=== PATIENT | female | born 1950 | race American Indian/Alaskan Native ===

== ENCOUNTER 2016-09-13 12:44 | Outpatient (CLI) | payer MEDICARE | END 2016-09-13 12:45 | disposition home or self-care (01) | LOC: VAS 12:44 | PROVIDERS: ATTEND Podiatrist Foot & Ankle Surgery | DX: M79.662 Pain in left lower leg (principal) ==

== ENCOUNTER 2017-01-24 10:24 | Inpatient (IN) | payer MEDICARE ==
[~2017-01-24 10:24] MED LIST: NOVOLOG SUB-Q SCH
[2017-01-24] MEDS ORDERED: DUONEB *Not for PRN Use IH ONE (10:40)
--- NOTE | 2017-01-24 11:03 | Emergency Department Report ---
Entered by DEREK CASAREZ, acting as scribe for SHIRIN NAVARRETE [employer]. - HPI History of Present Illness: Pt presents to ED today for evaluation of SOB with associated wheezing and generalized chest pain. She additionally notes a fall yesterday, at which time she fell backward in the kitchen against the cabinet, with subsequent constant, 10/10 right foot pain and right knee pain that is increased from baseline. She denies LOC. Patient reports that she has been able to "scoot along" since the fall, but reports that her right foot and right knee pain is worse when she goes to rise to ambulate. She denies fever, but states that her right foot has been "hot". Patient is prescribed an inhaler for intermittent SOB, but denies hx of COPD or asthma. - ROS Review of Systems: Positive for SOB, wheezing, chest pain, right foot pain, and right knee pain Negative for fever - Exam Vital Signs: Vital Signs 01/24/17 10:39 Temperature 98.1 F Pulse Rate 72 Respiratory 20 Rate Blood Pressure 194/81 O2 Sat by Pulse 100 Oximetry Physical Exam: morbidly obese female scattered insp wheezing MSE screening note: Focused history and physical exam performed. Due to findings the following was ordered: Orders: Nebs and labs, xr <SHIRIN NAVARRETE - Last Filed: 01/24/17 11:02> - Exam Vital Signs: Vital Signs 01/24/17 01/24/17 01/24/17 10:39 12:31 12:40 Temperature 98.1 F Pulse Rate 72 71 78 Respiratory 20 17 16 Rate Blood Pressure 194/81 195/88 O2 Sat by Pulse 100 98 97 Oximetry 01/24/17 01/24/17 01/24/17 12:50 13:00 13:10 Temperature Pulse Rate 73 74 74 Respiratory 19 23 13 Rate Blood Pressure 197/85 186/69 186/69 O2 Sat by Pulse 98 96 99 Oximetry 01/24/17 01/24/17 13:29 13:35 Temperature Pulse Rate 72 Respiratory 24 Rate Blood Pressure 184/71 O2 Sat by Pulse 97 Oximetry MSE screening note: Focused history and physical exam performed. Due to findings the following was ordered: <SHANDA SKINNER - Last Filed: 01/24/17 16:11> Stated Complaint: CHEST PAIN/RT LEG PAIN Time Seen by Provider: 01/24/17 10:37 ED Medical Decision Making - Lab Data Result diagrams: 01/24/17 11:42 01/24/17 13:30 <SHANDA SKINNER - Last Filed: 01/24/17 16:11> ED Disposition for MSE <SHIRIN NAVARRETE - Last Filed: 01/24/17 11:02> <SHANDA SKINNER - Last Filed: 01/24/17 16:11> Clinical Impression: Acute renal failure, COPD exacerbation, Chest pain, Hypertensive urgency Disposition: DC-09 OP ADMIT IP TO THIS HOSP Condition: Stable This documentation as recorded by the HERMELINDO chauhan KELLY,accurately reflects the service I personally performed and the decisions made by ROSALBA lauren TRACY M, NP.
--- NOTE | 2017-01-24 11:55 | XRay Report ---
RIGHT FOOT, 3 VIEWS History: Right foot pain after fall. Findings: There is severe diffuse soft tissue swelling or soft tissue edema. A moderate hallux valgus deformity is identified. No displaced fracture, erosive joint pathology or bony destruction is identified. Impression: Soft tissue swelling or edema. Chronic findings as described. No acute injury is appreciated on x-ray.
--- NOTE | 2017-01-24 11:55 | XRay Report ---
CHEST 2 VIEWS INDICATION: Dyspnea. COMPARISON: None similar. FINDINGS: PA and lateral chest radiographs demonstrate normal cardiomediastinal silhouette. Clear lungs. Mild aortic knob calcifications. Demineralized bones with mild thoracic spondylosis. CONCLUSION: No acute disease in the chest. Thank you for the opportunity to participate in this patient's care.
--- NOTE | 2017-01-24 11:57 | XRay Report ---
RIGHT KNEE RADIOGRAPHS INDICATION: Pain, status post fall. COMPARISON: None similar. FINDINGS: AP, oblique and lateral right knee radiographs suggest a moderate to large suprapatellar effusion. Demineralized bones with intact articulation. Degenerative spurring noted, most medially. Patellofemoral and lateral compartment degenerative narrowing also not excluded. Moderate atherosclerotic vascular calcifications. CONCLUSION: Right knee degenerative changes and suprapatellar effusion without acute bony abnormality, as described. Thank you for the opportunity to participate in this patient's care.
[2017-01-24 12:00] LABS: Basophils % (Auto) 0.5 % (0.0-1.8); Eosinophils % (Auto) 2.1 % (0.0-4.3); Hematocrit 28.3 % (30.3-42.9); Hemoglobin 8.9 gm/dl (10.1-14.3); Mean Corpuscular HGB Conc 32 % (30-34); Mean Corpuscular Volume 75 fl (79-97); Platelet Count 218 K/mm3 (140-440); Red Blood Count 3.76 M/mm3 (3.65-5.03); Red Cell Distribution Width 17.5 % (13.2-15.2); White Blood Count 9.6 K/mm3 (4.5-11.0)
[2017-01-24 12:01] LABS: Mean Corpuscular Hemoglobin 24 pg (28-32)
--- NOTE | 2017-01-24 12:03 | XRay Report ---
RIGHT TIBIA AND FIBULA RADIOGRAPHS INDICATION: Pain. COMPARISON: None similar. FINDINGS: AP and lateral views demonstrate intact right tibia and fibula as also adjacent articulations. Knee degenerative changes. Dorsal midfoot spurring. Vascular/soft tissue calcifications. Demineralized bones. Diffuse lower leg edema versus related to patient's body habitus. CONCLUSION: No acute right tibia or fibula radiographic abnormality with findings, as above. Thank you for the opportunity to participate in this patient's care.
[2017-01-24 12:08] LABS: INR 0.95 (0.87-1.13)
[2017-01-24 12:09] LABS: Partial Thromboplastin Time 29.9 Sec. (24.2-36.6)
[2017-01-24] MEDS ORDERED: ATROVENT IH ONE (12:14)
[2017-01-24 12:15] LABS: Albumin 3.5 g/dL (3.9-5); Albumin/Globulin Ratio 0.7 %; BUN/Creatinine Ratio 17.5; Bilirubin,Total 0.3 mg/dL (0.1-1.2); Calcium 8.5 mg/dL (8.4-10.2); Chloride 104.8 mmol/L (98-107); Potassium 4.1 mmol/L (3.6-5.0); Total Protein 8.3 g/dL (6.3-8.2)
[2017-01-24] MEDS ORDERED: PROVENTIL IH ONE (12:15)
[2017-01-24] MEDS ORDERED: MAGNESIUM SULFATE 2GM/50ML 2 GM/50 ML BAG IV ONE (12:17)
--- NOTE | 2017-01-24 12:18 | Emergency Department Report ---
ED General Adult HPI - General Chief complaint: Chest Pain Stated complaint: CHEST PAIN/RT LEG PAIN Time Seen by Provider: 01/24/17 10:37 Source: patient, family, RN notes reviewed Mode of arrival: Ambulatory Limitations: No Limitations - History of Present Illness Initial comments: This is a 66-year-old female. She is previously unknown to me. Her primary care doctor is Dr. Ruvalcaba. She reports a past medical history of diabetes, arthritis, hypertension, obesity, COPD. He is not currently oxygen dependent. The patient presents to the ER to make complaint of right lower extremity pain and swelling. She reports that it started yesterday. She reports a mechanical fall, where she landed on her buttocks and on her back. She did not hit her head. She had no symptoms prior to the fall. The lower extremity pain is sharp, and increases with palpation and range of motion. It decreases with rest. She denies headache, neck pain, admits to chronic shortness of breath, chronic cough, which is slightly worsened than her baseline. She also admitted to social chest pain which did not radiate to the back, arms and neck. No vomiting or diaphoresis. No hematemesis or bright red blood per rectum. -: Sudden Location: chest, back, right, lower extremity Quality: aching Consistency: constant Improves with: rest Worsens with: movement Associated Symptoms: chest pain, cough, shortness of breath, weakness - Related Data Home Medications Medication Instructions Recorded Confirmed Last Taken Gabapentin [Neurontin] 300 mg PO BID 01/24/17 01/24/17 Unknown Glimepiride [Amaryl] 1 mg PO QAM 01/24/17 01/24/17 Unknown HYDROcodone/APAP 7.5-325 [Yoder 1 each PO Q6HR PRN 01/24/17 01/24/17 Unknown 7.5/325] Hydralazine HCl [Apresoline TAB] 50 mg PO BID 01/24/17 01/24/17 Unknown Oxybutynin [Ditropan] 5 mg PO BID 01/24/17 01/24/17 Unknown amLODIPine [Norvasc] 10 mg PO DAILY 01/24/17 01/24/17 Unknown traMADol [Ultram] 50 mg PO Q4HR PRN 01/24/17 01/24/17 Unknown Allergies Allergy/AdvReac Type Severity Reaction Status Date / Time Penicillins Allergy Rash Unverified 09/13/16 12:46 ED Review of Systems ROS: Stated complaint: CHEST PAIN/RT LEG PAIN Other details as noted in HPI Constitutional: malaise. denies: fever Eyes: denies: vision change ENT: denies: epistaxis Respiratory: shortness of breath Cardiovascular: edema Gastrointestinal: denies: abdominal pain Musculoskeletal: back pain Skin: denies: lesions Neurological: weakness Psychiatric: anxiety ED Past Medical Hx - Past Medical History Previous Medical History?: Yes Hx Hypertension: Yes Hx Diabetes: Yes Hx Arthritis: Yes - Surgical History Past Surgical History?: Yes Additional Surgical History: Left knee surgery, Abd hernia repair - Social History Smoking Status: Former Smoker Substance Use Type: Prescribed - Medications Home Medications: Home Medications Medication Instructions Recorded Confirmed Last Taken Type Gabapentin [Neurontin] 300 mg PO BID 01/24/17 01/24/17 Unknown History Glimepiride [Amaryl] 1 mg PO QAM 01/24/17 01/24/17 Unknown History HYDROcodone/APAP 7.5-325 [Yoder 1 each PO Q6HR PRN 01/24/17 01/24/17 Unknown History 7.5/325] Hydralazine HCl [Apresoline TAB] 50 mg PO BID 01/24/17 01/24/17 Unknown History Oxybutynin [Ditropan] 5 mg PO BID 01/24/17 01/24/17 Unknown History amLODIPine [Norvasc] 10 mg PO DAILY 01/24/17 01/24/17 Unknown History traMADol [Ultram] 50 mg PO Q4HR PRN 01/24/17 01/24/17 Unknown History ED Physical Exam - General Limitations: Physical Limitation General appearance: obese - Head Head exam: Present: atraumatic, normocephalic - Eye Eye exam: Present: normal appearance, EOMI. Absent: nystagmus - ENT ENT exam: Present: normal exam, normal orophraynx, mucous membranes moist, normal external ear exam - Neck Neck exam: Present: normal inspection, full ROM. Absent: tenderness, meningismus - Respiratory Respiratory exam: Present: respiratory distress, wheezes, rhonchi - Cardiovascular Cardiovascular Exam: Present: regular rate, normal rhythm, normal heart sounds. Absent: systolic murmur, diastolic murmur, rubs, gallop - GI/Abdominal GI/Abdominal exam: Present: soft, normal bowel sounds. Absent: distended, tenderness, guarding, rebound, rigid, pulsatile mass - Extremities Exam Extremities exam: Present: normal inspection, normal capillary refill, pedal edema, calf tenderness - Back Exam Back exam: Present: normal inspection, full ROM, paraspinal tenderness, vertebral tenderness, other (there is lumbar tenderness. ). Absent: tenderness , CVA tenderness (R) - Neurological Exam Neurological exam: Present: alert, oriented X3, other (Extraocular movements intact. Tongue midline. No facial droop. Facial sensation intact to light touch in the V1, V2, V3 distribution bilaterally. 5 and 5 strength in 4 extremities.. Sensation is intact to light touch in 4 extremities.). Absent: motor sensory deficit - Psychiatric Psychiatric exam: Present: normal affect, normal mood - Skin Skin exam: Present: warm, dry, intact, normal color. Absent: rash ED Course Vital Signs 01/24/17 01/24/17 01/24/17 10:39 12:31 12:40 Temperature 98.1 F Pulse Rate 72 71 78 Respiratory 20 17 16 Rate Blood Pressure 194/81 195/88 O2 Sat by Pulse 100 98 97 Oximetry 01/24/17 01/24/17 01/24/17 12:50 13:00 13:10 Temperature Pulse Rate 73 74 74 Respiratory 19 23 13 Rate Blood Pressure 197/85 186/69 186/69 O2 Sat by Pulse 98 96 99 Oximetry 01/24/17 01/24/17 13:29 13:35 Temperature Pulse Rate 72 Respiratory 24 Rate Blood Pressure 184/71 O2 Sat by Pulse 97 Oximetry - Reevaluation(s) Reevaluation #1: 01/24/17 15:[address] scan of the C-spine is negative for traumatic injury. ED Medical Decision Making - Lab Data Result diagrams: 01/24/17 11:42 01/24/17 13:30 Vital Signs 01/24/17 10:39 Temperature 98.1 F Pulse Rate 72 Respiratory 20 Rate Blood Pressure 194/81 O2 Sat by Pulse 100 Oximetry Lab Results 01/24/17 01/24/17 01/24/17 Range/Units 11:42 11:42 11:42 WBC 9.6 (4.5-11.0) K/mm3 RBC 3.76 (3.65-5.03) M/mm3 Hgb 8.9 L (10.1-14.3) gm/dl Hct 28.3 L (30.3-42.9) % MCV 75 L (79-97) fl MCH 24 L (28-32) pg MCHC 32 (30-34) % RDW 17.5 H (13.2-15.2) % Plt Count 218 (140-440) K/mm3 Lymph % (Auto) 29.8 (13.4-35.0) % [place] % (Auto) 9.3 H (0.0-7.3) % Eos % (Auto) 2.1 (0.0-4.3) % Baso % (Auto) 0.5 (0.0-1.8) % Lymph # 2.9 (1.2-5.4) K/mm3 [place] # 0.9 H (0.0-0.8) K/mm3 Eos # 0.2 (0.0-0.4) K/mm3 Baso # 0.0 (0.0-0.1) K/mm3 Seg Neutrophils % 58.3 (40.0-70.0) % Seg Neutrophils # 5.6 (1.8-7.7) K/mm3 PT 12.6 (12.2-14.9) Sec. INR 0.95 (0.87-1.13) APTT 29.9 (24.2-36.6) Sec. D-Dimer (0-234) ng/mlDDU Sodium 141 (137-145) mmol/L Potassium 4.1 (3.6-5.0) mmol/L Chloride 104.8 (98-107) mmol/L Carbon Dioxide 22 (22-30) mmol/L Anion Gap 18 mmol/L BUN 42 H (7-17) mg/dL Creatinine 2.4 H (0.7-1.2) mg/dL Estimated GFR 25 ml/min BUN/Creatinine Ratio 17.50 % Glucose 153 H (65-100) mg/dL Calcium 8.5 (8.4-10.2) mg/dL Total Bilirubin 0.30 (0.1-1.2) mg/dL AST 26 (5-40) units/L ALT 11 (7-56) units/L Alkaline Phosphatase 79 (35-129) units/L Troponin T 0.023 (0.00-0.029) ng/mL NT-Pro-B Natriuret Pep (0-900) pg/mL Total Protein 8.3 H (6.3-8.2) g/dL Albumin 3.5 L (3.9-5) g/dL Albumin/Globulin Ratio 0.7 % 01/24/17 01/24/17 Range/Units 11:42 11:42 WBC (4.5-11.0) K/mm3 RBC (3.65-5.03) M/mm3 Hgb (10.1-14.3) gm/dl Hct (30.3-42.9) % MCV (79-97) fl MCH (28-32) pg MCHC (30-34) % RDW (13.2-15.2) % Plt Count (140-440) K/mm3 Lymph % (Auto) (13.4-35.0) % [place] % (Auto) (0.0-7.3) % Eos % (Auto) (0.0-4.3) % Baso % (Auto) (0.0-1.8) % Lymph # (1.2-5.4) K/mm3 [place] # (0.0-0.8) K/mm3 Eos # (0.0-0.4) K/mm3 Baso # (0.0-0.1) K/mm3 Seg Neutrophils % (40.0-70.0) % Seg Neutrophils # (1.8-7.7) K/mm3 PT (12.2-14.9) Sec. INR (0.87-1.13) APTT (24.2-36.6) Sec. D-Dimer < 135 (0-234) ng/mlDDU Sodium (137-145) mmol/L Potassium (3.6-5.0) mmol/L Chloride (98-107) mmol/L Carbon Dioxide (22-30) mmol/L Anion Gap mmol/L BUN (7-17) mg/dL Creatinine (0.7-1.2) mg/dL Estimated GFR ml/min BUN/Creatinine Ratio % Glucose (65-100) mg/dL Calcium (8.4-10.2) mg/dL Total Bilirubin (0.1-1.2) mg/dL AST (5-40) units/L ALT (7-56) units/L Alkaline Phosphatase (35-129) units/L Troponin T (0.00-0.029) ng/mL NT-Pro-B Natriuret Pep 692.5 (0-900) pg/mL Total Protein (6.3-8.2) g/dL Albumin (3.9-5) g/dL Albumin/Globulin Ratio % - EKG Data -: EKG Interpreted by Me EKG shows normal: sinus rhythm Rate: normal - EKG Data When compared to previous EKG there are: previous EKG unavailable 01/24/17 13:29 normal sinus, 78 bpm, normal axis, not morphologically consistent with STEMI, there is no prior for comparison, nonspecific abnormalities - Radiology Data Radiology results: report reviewed, image reviewed X-ray of the pelvis is negative. X-ray the foot, tib-fib demonstrate no fracture or dislocation. DJD is noted. X-ray the chest is negative - Medical Decision Making Differential diagnosis: COPD exacerbation, strain, sprain, fracture, dislocation , acute coronary syndrome, incidental renal insufficiency, pulmonary embolus Assessment and plan: 66-year-old female with a primary complaint of back pain and lower extremity pain status post mechanical fall. Has a GCS of 15, with an anisocoria of 0. Clinically sober at this time. While in the ER, began to complain of chest pain. Found to be in renal insufficiency. Lower extremity DVT study negative. D-dimer negative. Low risk by well's criteria. Found to be in acute renal failure. Still wheezing after albuterol, Atrovent, steroids and magnesium. Case presents to the Hospital physician, Dr. Ribeiro, who accepts the patient to his service for chest pain and risk stratification, COPD exacerbation, and acute renal failure. Noncontrast CT scan of the lumbar spine ordered given trauma. Patient to remain in the ER pending results of the CT scan. Critical care attestation.: If time is entered above; I have spent that time in minutes in the direct care of this critically ill patient, excluding procedure time. ED Disposition Clinical Impression: Acute renal failure, COPD exacerbation, Chest pain, Hypertensive urgency Disposition: OP ADMIT IP TO THIS HOSP Is pt being admited?: Yes Does the pt Need Aspirin: Yes Condition: Stable
--- NOTE | 2017-01-24 12:49 | XRay Report ---
AP PELVIS: History: Pain after fall. AP view of the pelvis shows normal pelvic contour and soft tissues. The hips are symmetric and within normal limits as are the sacroiliac joints. IMPRESSION: Normal pelvis.
[2017-01-24] MEDS ORDERED: APRESOLINE IV ONE (12:56)
[2017-01-24] MEDS ORDERED: BABY ASPIRIN PO ONE (12:58)
--- NOTE | 2017-01-24 13:05 | Admit Criteria Form ---
Admission Criteria Documentation: UROLOGIC DISEASE G Clinical Indications for Admission to Inpatient Care (Place ' X' for any and all applicable criteria): Hospital admission is needed for appropriate care of the patient because of 1 or more of the following: [ ]I. New-onset Reduced urine output, or hydronephrosis remaining after emergency or observation level care (as appropriate ) [X ]II. Renal disease needing inpatient care indicated by 1 or more of the following(2)(3)(4): [ X]a) Acute renal failure [ ]b) Significant uremic complications [ ]c) Acute kidney injury (that does not qualify as Acute renal failure ) requiring inpatient care indicated by ALL of the following(5)(6)(7)(8) (9): [ ]i) Worsening clinical status (eg, rising creatinine) despite outpatient and observation care treatment (eg, hydration) [ ]ii) Acute kidney injury indicated by 1 or more of the following: [ ]1) 2-fold or more rise in serum creatinine from baseline [ ]2) Reduction of more than 50% in estimated glomerular filtration rate from baseline [ ]3) Urine output less than 0.5 mL/kg/hr for 12 hours despite adequate volume status [ ]d) Systemic cause (eg, Goodpasture syndrome ) needing inpatient care [ ]e) Rapidly progressive renal disease needing inpatient care (eg, plasmapheresis, immunosuppression ) Anasarca needing inpatient care [ ]f) Hemoptysis [ ]g) Hemolysis, thrombosis, or infraction [ ]h) Anasarca needing inpatient care [ ]III. New-onset or uncontrolled nephrogenic diabetes insipidus [ ]IV. Urologic infection requiring inpatient care as indicated by 1 or more of the following(10)(11)(12): [ ]a) Hemodynamic instability [ ]b) Dehydration that is severe or persistent [ ]c) Failure of outpatient treatment [ ]d) Aline's gangrene [ ]e) Urinary obstruction [ ]f) Immunocompromised state (eg, chronic steroid use ) [ ]g) Known renal or urologic abnormalities(eg, indwelling catheter, structural abnormalities ) [ ]h) Recent urologic manipulation or procedure Urinary obstruction [ ]i) Abscess requiring drainage Immunocompromised state [ ]V. Acute urinary retention requiring inpatient management as indicated by ANY ONE of the following(1)(13): [ ]a) Retention cannot be alleviated via emergency or observation level care (eg, urinary catheter placement) [ ]b) Hemodynamic instability [ ]c) Acute neurologic etiology (eg, cauda equina) [ ]d) Dehydration or other complications not manageable with emergency or observation level care [ ]e) Acute kidney injury (that does not qualify as Acute renal failure ) requiring inpatient care indicated by ALL of the following(5)(6)(7)(8) (9): [ ]i) Acute kidney injury indicated by ANY ONE of the following: [ ]1) 2-fold or more rise in serum creatinine from baseline [ ]2) Reduction of more than 50% in estimated glomerular filtration rate from baseline [ ]ii) Worsening clinical status (eg, rising creatinine) despite outpatient and observation care treatment (eg, hydration) [ ]. Gross hematuria requiring inpatient management as indicated by ANY ONE of the following(1)(2): [ ]a) Evidence of renal obstruction [ ]b) Reduced urine output [ ]c) Clot retention after urinary catheterization and irrigation [ ]d) Severe Anemia [ ]e) Systemic cause needing inpatient treatment (eg, Goodpasture syndrome) [ ]VII. Priapism not responsive to emergency or observation care treatment [ ]VII. Scrotal, testicular, or epididymal disorder requiring inpatient care indicated by 1 or more of the following(1)(14)(15)(16): [ ]a) Scrotal edema or infection not manageable with emergency or observation level care [ ]b) Orchitis not manageable with emergency or observation level care [ ]c) Epididymitis not manageable with emergency or observation level of care [ ]d) Other scrotal, testicular, or epididymal disorder (eg, infection, inflammation) not manageable with emergency or observation level care [ ]IX. Complications of transplanted kidney indicated by 1 or more of the following [ ]a) Acute graft rejection requiring inpatient management (eg, intravenous immunosuppression) [ ]b) Acute kidney injury indicated by ALL of the following i) Acute kidney injury indicated by 1 or more of the following 1) 2-fold or more rise in serum creatinine from baseline 2) Reduction of more than 50% in estimated glomerular filtration rate from baseline 3) Urine output less than 0.5 mL/kg/hr for 12 hours despite adequate volume status ii) Kidney injury too severe or not responsive to outpatient and observation care treatment (eg, hydration) [ ]c) Infection requiring inpatient management (eg, Hemodynamic instability, need for intravenous antimicrobial treatment) [ ]d) Other complication of transplanted kidney requiring patient management (eg, severe diarrhea leading to malabsorption) [ ]X. Trauma to renal, genital, or urologic system requiring inpatient medical care [ ]XI. Urologic Disease condition, symptom, or finding for which emergency and observation care have failed or are not considered appropriate. The original [employer] content created by [employer] has been revised. The portions of the content which have been revised are identified through the use of italic text or in bold, and [facility] has neither reviewed nor approved the modified material. All other unmodified content is copyright [facility]. Please see references footnoted in the original [facility] edition 2016 Admission Criteria Met: Yes
[2017-01-24] MEDS ORDERED: SODIUM CHLORIDE FLUSH SYRINGE 10 ML IV PRN (13:32)
[2017-01-24] MEDS ORDERED: TYLENOL PO PRN (13:32)
[2017-01-24] MEDS ORDERED: ULTRAM PO PRN (13:51)
--- NOTE | 2017-01-24 13:53 | History and Physical Report ---
History of Present Illness Chief complaint: My chest hurts, and my leg hurts History of present illness: 66 YO Female with HTN, DM, OA, MO, COPD presents to ED for evaluation. Pt states that she has experienced pain in her chest , leg swelling, and leg pain for the past 1 day with worsening symptoms over the past 4 hours. Pt chest pain is 6/10, substernal, nonradiating, not exacerbated with exertion, or relieved with rest. Pain is associated with shortness of breath. Pt acknowledges productive cough with increased sputum, but denies fever, chills, palpitations, NVD, skin rash or recent ill contacts. - Past History Past Medical History: arthritis, COPD, diabetes, hypertension Past Surgical History: hernia repair, total knee replacement Social history: . denies: smoking, alcohol abuse, prescription drug abuse, IV drug use Family history: diabetes, hypertension Medications and Allergies Allergies Allergy/AdvReac Type Severity Reaction Status Date / Time Penicillins Allergy Rash Unverified 09/13/16 12:46 Home Medications Medication Instructions Recorded Confirmed Last Taken Type Gabapentin [Neurontin] 300 mg PO BID 01/24/17 01/24/17 Unknown History Glimepiride [Amaryl] 1 mg PO QAM 01/24/17 01/24/17 Unknown History HYDROcodone/APAP 7.5-325 [[place] 1 each PO Q6HR PRN 01/24/17 01/24/17 Unknown History 7.5/325] Hydralazine HCl [Apresoline TAB] 50 mg PO BID 01/24/17 01/24/17 Unknown History Oxybutynin [Ditropan] 5 mg PO BID 01/24/17 01/24/17 Unknown History amLODIPine [Norvasc] 10 mg PO DAILY 01/24/17 01/24/17 Unknown History traMADol [Ultram] 50 mg PO Q4HR PRN 01/24/17 01/24/17 Unknown History Active Meds: Active Medications Acetaminophen (Tylenol) 650 mg PO Q4H PRN PRN Reason: Pain MILD(1-3)/Fever >100.5/FOWLER Sodium Chloride (Sodium Chloride Flush Syringe 10 Ml) 10 ml IV PRN PRN PRN Reason: LINE FLUSH Tramadol HCl (Ultram) 25 mg PO Q8H PRN PRN Reason: Pain, Moderate (4-6) Review of Systems All systems: negative Constitutional: no weight loss, no fever Ears, nose, mouth and throat: no ear pain Breasts: no swelling Cardiovascular: chest pain, shortness of breath Respiratory: cough with sputum, excessive sputum Gastrointestinal: no abdominal pain Genitourinary Female: no difficulty voiding Rectal: no pain Musculoskeletal: no neck stiffness Integumentary: no rash Neurological: no paralysis Psychiatric: no anxiety Endocrine: no cold intolerance, no nocturia Hematologic/Lymphatic: no easy bruising Allergic/Immunologic: no urticaria Exam - Constitutional Vitals: Temp Pulse Resp BP Pulse Ox 98.1 F 72 24 184/71 97 01/24/17 10:39 01/24/17 13:35 01/24/17 13:29 01/24/17 13:35 01/24/17 13:29 General appearance: Present: mild distress, obese - EENT Eyes: Present: PERRL ENT: hearing intact, clear oral mucosa - Neck Neck: Present: supple, normal ROM - Respiratory Respiratory effort: normal Respiratory: bilateral: diminished - Cardiovascular Heart Sounds: Present: S1 & S2. Absent: rub, click - Extremities Extremities: pulses symmetrical, No edema Peripheral Pulses: within normal limits - Abdominal General gastrointestinal: Present: soft, non-tender, non-distended, normal bowel sounds Female genitourinary: Present: normal - Integumentary Integumentary: Present: clear, warm, dry - Musculoskeletal Musculoskeletal: gait normal, strength equal bilaterally - Psychiatric Psychiatric: appropriate mood/affect, intact judgment & insight - Neurologic Neurologic: CNII-XII intact, moves all extremities Results - Labs CBC & Chem 7: 01/24/17 11:42 01/24/17 13:30 Labs: Abnormal lab results 01/24/17 01/24/17 Range/Units 11:42 11:42 Hgb 8.9 L (10.1-14.3) gm/dl Hct 28.3 L (30.3-42.9) % MCV 75 L (79-97) fl MCH 24 L (28-32) pg RDW 17.5 H (13.2-15.2) % [place] % (Auto) 9.3 H (0.0-7.3) % [place] # 0.9 H (0.0-0.8) K/mm3 BUN 42 H (7-17) mg/dL Creatinine 2.4 H (0.7-1.2) mg/dL Glucose 153 H (65-100) mg/dL Total Protein 8.3 H (6.3-8.2) g/dL Albumin 3.5 L (3.9-5) g/dL Assessment and Plan - Patient Problems (1) ACS (acute coronary syndrome) Current Visit: Yes Status: Acute Plan to address problem: Admit to telemetry: serial cardiac enzymes, ekg, telemetry, echo, cardiology consulted, (2) Diabetes Current Visit: Yes Status: Acute Qualifiers: Diabetes mellitus type: D Diabetes mellitus complication status: D Diabetes mellitus complication detail: D Diabetic retinopathy severity: D Proliferative retinopathy type: P Diabetes mellitus macular edema: D Diabetes mellitus correction insulin use: D Laterality: L Chronic kidney disease stage: C Plan to address problem: ADA diet, insulin, accu check (3) Metabolic syndrome Current Visit: Yes Status: Acute Plan to address problem: Pt counseled, balanced diet, increased physical activity (4) Acute renal failure Current Visit: Yes Status: Acute Qualifiers: Acute renal failure type: A Plan to address problem: IVF replacement, monitor uop q shift, (5) COPD exacerbation Current Visit: Yes Status: Acute Plan to address problem: supplemental oxygen, nebs, aspiration precautions, NIPPV as clinically indicated. (6) Hypertensive urgency Current Visit: Yes Status: Acute Plan to address problem: monitor B/P q shift, continue home medication. (7) DVT prophylaxis Current Visit: Yes Status: Acute
[2017-01-24 15:08] LABS: BUN/Creatinine Ratio 18.63; Calcium 8.4 mg/dL (8.4-10.2); Chloride 103.5 mmol/L (98-107); Potassium 4.1 mmol/L (3.6-5.0)
--- NOTE | 2017-01-24 15:12 | Cat Scan Report ---
CT LUMBAR SPINE WITHOUT CONTRAST History: Back pain after fall. Findings: Mild osteopenia is suspected. There is 8 mm anterolisthesis of L4 with respect to L5 which appears to be secondary to facet arthropathy. There is advanced disc space narrowing and vacuum phenomenon at this level as well. The remaining levels are within normal limits. There is no evidence for compression deformity, bone lesion or paraspinal abnormality. Impression: Grade 2 spondylolisthesis at L4-5 which appears degenerative in nature. Mild osteopenia. No acute injury is identified.
[2017-01-24 19:31] LABS: Hematocrit 27.6 % (30.3-42.9); Hemoglobin 8.7 gm/dl (10.1-14.3); Mean Corpuscular HGB Conc 31 % (30-34); Mean Corpuscular Volume 76 fl (79-97); Platelet Count 214 K/mm3 (140-440); Red Blood Count 3.65 M/mm3 (3.65-5.03); Red Cell Distribution Width 17.7 % (13.2-15.2); White Blood Count 9.1 K/mm3 (4.5-11.0)
[2017-01-24 19:33] LABS: Mean Corpuscular Hemoglobin 24 pg (28-32)
[2017-01-24] MEDS ORDERED: PROVENTIL IH PRN (20:56)
[2017-01-24] MEDS: NOVOLOG SUB-Q SCH (22:50)
[2017-01-25] MEDS: NOVOLOG SUB-Q SCH ×4 (07:30→22:05)
[2017-01-25] MEDS ORDERED: ULTRAM PO PRN (10:05)
[2017-01-25] MEDS: NORVASC PO SCH (10:28)
[2017-01-25] MEDS: NEURONTIN PO SCH ×2 (10:28→22:04)
[2017-01-25] MEDS: DITROPAN PO SCH ×2 (10:29→22:04)
[2017-01-25] MEDS: APRESOLINE PO SCH ×2 (10:29→18:37)
--- NOTE | 2017-01-25 11:07 | Consultation ---
History of Present Illness Consult date: 01/25/17 Consult reason: chest pain History of present illness: This is a 66yr old woman that reports a history of Spinal stenosis, Diabetes mellitus, Obesity and Hypertension. She denies prior cardiac history. She denies recent cardiac workup. She came to this hospital following a fall at home. Patient denies chest pain and shortness of breath just prior to her fall. Patient reports she was standing when her legs became weak then gave out on her causing her to fall backwards. Patient reports she landed on her buttock and back. She denies hitting her head. Patient denies loss of consciousness. After her fall, patient reports anxiousness, chest pain and shortness of breath. Her ECG shows a sinus rhythm, no acute ischemic changes. Past History Past Surgical History: total knee replacement Social history: . denies: smoking, alcohol abuse, prescription drug abuse, IV drug use Family history: diabetes, hypertension Medications and Allergies Allergies Allergy/AdvReac Type Severity Reaction Status Date / Time Penicillins Allergy Rash Unverified 09/13/16 12:46 Home Medications Medication Instructions Recorded Confirmed Last Taken Type Gabapentin [Neurontin] 300 mg PO BID 01/24/17 01/24/17 Unknown History Glimepiride [Amaryl] 1 mg PO QAM 01/24/17 01/24/17 Unknown History HYDROcodone/APAP 7.5-325 [[place] 1 each PO Q6HR PRN 01/24/17 01/24/17 Unknown History 7.5/325] Hydralazine HCl [Apresoline TAB] 50 mg PO BID 01/24/17 01/24/17 Unknown History Oxybutynin [Ditropan] 5 mg PO BID 01/24/17 01/24/17 Unknown History amLODIPine [Norvasc] 10 mg PO DAILY 01/24/17 01/24/17 Unknown History traMADol [Ultram] 50 mg PO Q4HR PRN 01/24/17 01/24/17 Unknown History Active Meds: Active Medications Acetaminophen (Tylenol) 650 mg PO Q4H PRN PRN Reason: Pain MILD(1-3)/Fever >100.5/FOWLER Albuterol (Proventil) 2.5 mg IH Q4HRT PRN PRN Reason: Shortness Of Breath Last Admin: 01/25/17 09:35 Dose: 2.5 mg Amlodipine Besylate (Norvasc) 10 mg PO DAILY REPLACED BY [facility] Last Admin: 01/25/17 10:28 Dose: 10 mg Gabapentin (Neurontin) 300 mg PO BID REPLACED BY [facility] Last Admin: 01/25/17 10:28 Dose: 300 mg Hydralazine HCl (Apresoline) 50 mg PO Q8H REPLACED BY [facility] Last Admin: 01/25/17 10:29 Dose: 50 mg Insulin Aspart (Novolog) 0 units SUB-Q ACHS [place] PRN Reason: Protocol Last Admin: 01/25/17 07:30 Dose: Not Given Oxybutynin Chloride (Ditropan) 5 mg PO BID REPLACED BY [facility] Last Admin: 01/25/17 10:29 Dose: 5 mg Pneumococcal Polyvalent Vaccine (Pneumovax 23) 0.5 ml IM .ONCE ONE Stop: 01/25/17 12:01 Sodium Chloride (Sodium Chloride Flush Syringe 10 Ml) 10 ml IV PRN PRN PRN Reason: LINE FLUSH Tramadol HCl (Ultram) 50 mg PO Q4HR PRN PRN Reason: Pain Physical Examination Vital Signs Temp Pulse Resp BP Pulse Ox 98.1 F 72 20 194/81 100 01/24/17 10:39 01/24/17 10:39 01/24/17 10:39 01/24/17 10:39 01/24/17 10:39 General appearance: no acute distress, obese HEENT: Positive: PERRL Cardiac: Positive: Reg Rate and Rhythm Results 01/24/17 17:28 01/24/17 13:30 Lipids 01/24/17 Range/Units 20:51 Triglycerides 77 (2-149) mg/dL Cholesterol 181 (50-199) mg/dL HDL Cholesterol 50 (40-59) mg/dL Cholesterol/HDL Ratio 3.62 % CBC 01/24/17 Range/Units 17:28 WBC 9.1 (4.5-11.0) K/mm3 RBC 3.65 (3.65-5.03) M/mm3 Hgb 8.7 L (10.1-14.3) gm/dl Hct 27.6 L (30.3-42.9) % Plt Count 214 (140-440) K/mm3 Lymph # Scientific Photographer [place] # Scientific Photographer [place] # Scientific Photographer [place] # Scientific Photographer Assessment and Plan s/p Fall spondylolisthesis on lumbar CT Chest pain Acute renal failure Anemia Morbid obesity Diabetes mellitus Hypertension Echocardiogram reports severe pulmonary hypertension, RVSP 62mmHg. Normal LV systolic function, EF 60-65%.
--- NOTE | 2017-01-25 11:55 | Consultation ---
History of Present Illness - Reason for Consult Consult date: 01/25/17 acute renal failure, chronic renal failure Requesting physician: BAYLEE COYLE - History of Present Illness This is a 66-year-old female. She is previously unknown to me. Her primary care doctor is Dr. Ruvalcaba. She reports a past medical history of diabetes, arthritis, hypertension, obesity, COPD. He is not currently oxygen dependent. The patient presents to the ER to make complaint of right lower extremity pain and swelling. She reports that it started yesterday. She reports a mechanical fall, where she landed on her buttocks and on her back. She did not hit her head. She had no symptoms prior to the fall. The lower extremity pain is sharp, and increases with palpation and range of motion. It decreases with rest. She denies headache, neck pain, admits to chronic shortness of breath, chronic cough, which is slightly worsened than her baseline. She also admitted to social chest pain which did not radiate to the back, arms and neck. No vomiting or diaphoresis. No hematemesis or bright red blood per rectum. found to have cr on 2.4 on admission Past History Past Medical History: arthritis, COPD, diabetes, hypertension Past Surgical History: total knee replacement Social history: . denies: smoking, alcohol abuse, prescription drug abuse, IV drug use Family history: diabetes, hypertension Medications and Allergies Allergies Allergy/AdvReac Type Severity Reaction Status Date / Time Penicillins Allergy Rash Unverified 09/13/16 12:46 Home Medications Medication Instructions Recorded Confirmed Last Taken Type Gabapentin [Neurontin] 300 mg PO BID 01/24/17 01/24/17 Unknown History Glimepiride [Amaryl] 1 mg PO QAM 01/24/17 01/24/17 Unknown History HYDROcodone/APAP 7.5-325 [[place] 1 each PO Q6HR PRN 01/24/17 01/24/17 Unknown History 7.5/325] Hydralazine HCl [Apresoline TAB] 50 mg PO BID 01/24/17 01/24/17 Unknown History Oxybutynin [Ditropan] 5 mg PO BID 01/24/17 01/24/17 Unknown History amLODIPine [Norvasc] 10 mg PO DAILY 01/24/17 01/24/17 Unknown History traMADol [Ultram] 50 mg PO Q4HR PRN 01/24/17 01/24/17 Unknown History Active Meds: Active Medications Acetaminophen (Tylenol) 650 mg PO Q4H PRN PRN Reason: Pain MILD(1-3)/Fever >100.5/FOWLER Albuterol (Proventil) 2.5 mg IH Q4HRT PRN PRN Reason: Shortness Of Breath Last Admin: 01/25/17 09:35 Dose: 2.5 mg Amlodipine Besylate (Norvasc) 10 mg PO DAILY [facility] Last Admin: 01/25/17 10:28 Dose: 10 mg Gabapentin (Neurontin) 300 mg PO BID [facility] Last Admin: 01/25/17 10:28 Dose: 300 mg Hydralazine HCl (Apresoline) 50 mg PO Q8H [facility] Last Admin: 01/25/17 10:29 Dose: 50 mg Insulin Aspart (Novolog) 0 units SUB-Q ACHS [facility] PRN Reason: Protocol Last Admin: 01/25/17 07:30 Dose: Not Given Oxybutynin Chloride (Ditropan) 5 mg PO BID [facility] Last Admin: 01/25/17 10:29 Dose: 5 mg Pneumococcal Polyvalent Vaccine (Pneumovax 23) 0.5 ml IM .ONCE ONE Stop: 01/25/17 12:01 Sodium Chloride (Sodium Chloride Flush Syringe 10 Ml) 10 ml IV PRN PRN PRN Reason: LINE FLUSH Tramadol HCl (Ultram) 50 mg PO Q4HR PRN PRN Reason: Pain Review of Systems Constitutional: fatigue, weakness, malaise Musculoskeletal: frequent falls Exam - Vital Signs Vital signs: Vital Signs Temp Pulse Resp BP Pulse Ox 98.1 F 72 20 194/81 100 01/24/17 10:39 01/24/17 10:39 01/24/17 10:39 01/24/17 10:39 01/24/17 10:39 - Physical Exam Narrative exam: - General Limitations: Physical Limitation General appearance: obese - Head Head exam: Present: atraumatic, normocephalic - Eye Eye exam: Present: normal appearance, EOMI. Absent: nystagmus - ENT ENT exam: Present: normal exam, normal orophraynx, mucous membranes moist, normal external ear exam - Neck Neck exam: Present: normal inspection, full ROM. Absent: tenderness, meningismus - Respiratory Respiratory exam: Present: respiratory distress, wheezes, rhonchi - Cardiovascular Cardiovascular Exam: Present: regular rate, normal rhythm, normal heart sounds. Absent: systolic murmur, diastolic murmur, rubs, gallop - GI/Abdominal GI/Abdominal exam: Present: soft, normal bowel sounds. Absent: distended, tenderness, guarding, rebound, rigid, pulsatile mass - Extremities Exam Extremities exam: Present: normal inspection, normal capillary refill, pedal edema, calf tenderness - Back Exam Back exam: Present: normal inspection, full ROM, paraspinal tenderness, vertebral tenderness, other (there is lumbar tenderness. ). Absent: tenderness , CVA tenderness (R) - Neurological Exam Neurological exam: Present: alert, oriented X3, other (Extraocular movements intact. Tongue midline. No facial droop. Facial sensation intact to light touch in the V1, V2, V3 distribution bilaterally. 5 and 5 strength in 4 extremities.. Sensation is intact to light touch in 4 extremities.). Absent: motor sensory deficit - Psychiatric Psychiatric exam: Present: normal affect, normal mood - Skin Skin exam: Present: warm, dry, intact, normal color. Absent: rash Results - Lab Results 01/24/17 17:28 01/24/17 13:30 Most recent lab results Calcium 8.4 mg/dL (8.4-10.2) 01/24/17 13:30 Assessment and Plan Impression: * RACHEAL on ?ckd * s/p fall * HTN * DM type 2 * obesity Plan: * strict i/os * dialy lytes * avoid nephrotoxins * ua with lytes * renal diet * control bp * maybe ckd due to HTN/DM
[2017-01-25] MEDS ORDERED: PNEUMOVAX 23 IM ONE (12:00)
[2017-01-25 12:52] LABS: HIV-1 Antigen p24 Non React (Non React); HIVR-1/2 Ab Non React (Non React)
--- NOTE | 2017-01-25 14:37 | Progress Note ---
Assessment and Plan Assessment and plan: 66 YO Female with HTN, DM, OA, MO, COPD presents to ED for evaluation. Pt states that she has experienced pain in her chest , leg swelling, and leg pain for the past 1 day with worsening symptoms over the past 4 hours. Pt chest pain is 6/10, substernal, nonradiating, not exacerbated with exertion, or relieved with rest. Pain is associated with shortness of breath. Pt acknowledges productive cough with increased sputum, but denies fever, chills, palpitations, NVD, skin rash or recent ill contacts. * Atypical chest pain secondary to costochondritis following a fall * Diabetes mellitus * Metabolic syndrome * Acute kidney injury secondary to vasomotor nephropathy * COPD * Morbid Obesity BMI 50.8 * Mechanical fall- she denies syncope * Hypertensive urgency Plan: * Continue current care supportive care cardiology input noted * Continue Accu-Cheks before meals and at bedtime on insulin therapy * The status of discussion with the patient about weight loss. Also patient interested of obstructive sleep apnea study. Respiratory consult with * Nephrology consultation for acute kidney injury and question possible underlying COPD * Physical therapy evaluation and treat * Is up a discharge in a.m. if patient remains stable imaging studies reviewed does reveal DJD l4 to L5 also with soft tissue swelling or edema to the right foot. * Resume Blood pressure medication * DVT and GI prophylaxis plan of care discussed in detail with the patient History Interval history: Patient seen and examined this morning in no acute distress reports improvement in chest pain denies any shortness of breath. Also reports improvement of the legs except swelling which persist on the right lower extremity. Adverse event reported by nursing staff Hospitalist Physical - Physical exam Narrative exam: VITAL SIGNS: Reviewed. GENERAL: The patient appeared pretty obese in no acute distress. Vital signs as documented. HEAD: No signs of head trauma. EYES: Pupils are equal. Extraocular motions intact. EARS: Hearing grossly intact. MOUTH: Oropharynx is normal. NECK: No adenopathy, no JVD. CHEST: Chest with diminished breath sounds bilaterally. No wheezes, rales, or rhonchi. CARDIAC: Regular rate and rhythm. S1 and S2, without murmurs, gallops, or rubs. VASCULAR: Lower foot edema +2.. Peripheral pulses normal and equal in all extremities. ABDOMEN: Soft, without detectable tenderness. No sign of distention. No rebound or guarding, and no masses palpated. Bowel Sounds normal. MUSCULOSKELETAL: Good range of motion of all major joints. Extremities without clubbing, cyanosis there is right foot edema. NEUROLOGIC EXAM: Alert and oriented x 3. No focal sensory or strength deficits. Speech normal. Follows commands. PSYCHIATRIC: Mood normal. SKIN: No rash or lesions. - Constitutional Vitals: Temp Pulse Resp BP Pulse Ox 99 F 71 20 182/70 100 01/25/17 12:00 01/25/17 12:00 01/25/17 12:00 01/25/17 12:00 01/25/17 12:00 General appearance: Present: no acute distress, obese Results - Labs CBC & Chem 7: 01/24/17 17:28 01/24/17 13:30 Labs: Laboratory Last Values WBC 9.1 K/mm3 (4.5-11.0) 01/24/17 17:28 RBC 3.65 M/mm3 (3.65-5.03) 01/24/17 17:28 Hgb 8.7 gm/dl (10.1-14.3) L 01/24/17 17:28 Hct 27.6 % (30.3-42.9) L 01/24/17 17:28 MCV 76 fl (79-97) L 01/24/17 17:28 MCH 24 pg (28-32) L 01/24/17 17:28 MCHC 31 % (30-34) 01/24/17 17:28 RDW 17.7 % (13.2-15.2) H 01/24/17 17:28 Plt Count 214 K/mm3 (140-440) 01/24/17 17:28 Lymph % (Auto) [place] 01/24/17 17:28 [place] % (Auto) [place] 01/24/17 17:28 Eos % (Auto) [place] 01/24/17 17:28 Baso % (Auto) [place] 01/24/17 17:28 Lymph # [place] 01/24/17 17:28 [place] # [place] 01/24/17 17:28 Eos # [place] 01/24/17 17:28 Baso # [place] 01/24/17 17:28 Seg Neutrophils % [place] 01/24/17 17:28 Seg Neutrophils # [place] 01/24/17 17:28 PT 12.6 Sec. (12.2-14.9) 01/24/17 11:42 INR 0.95 (0.87-1.13) 01/24/17 11:42 APTT 29.9 Sec. (24.2-36.6) 01/24/17 11:42 D-Dimer < 135 ng/mlDDU (0-234) 01/24/17 11:42 Sodium 141 mmol/L (137-145) 01/24/17 13:30 Potassium 4.1 mmol/L (3.6-5.0) 01/24/17 13:30 Chloride 103.5 mmol/L (98-107) 01/24/17 13:30 Carbon Dioxide 20 mmol/L (22-30) L 01/24/17 13:30 Anion Gap 22 mmol/L 01/24/17 13:30 BUN 41 mg/dL (7-17) H 01/24/17 13:30 Creatinine 2.2 mg/dL (0.7-1.2) H 01/24/17 13:30 Estimated GFR 27 ml/min 01/24/17 13:30 BUN/Creatinine Ratio 18.63 % 01/24/17 13:30 Glucose 155 mg/dL (65-100) H 01/24/17 13:30 POC Glucose 390 (70-105) H 01/24/17 21:59 Calcium 8.4 mg/dL (8.4-10.2) 01/24/17 13:30 Total Bilirubin 0.30 mg/dL (0.1-1.2) 01/24/17 11:42 AST 26 units/L (5-40) 01/24/17 11:42 ALT 11 units/L (7-56) 01/24/17 11:42 Alkaline Phosphatase 79 units/L (35-129) 01/24/17 11:42 Total Creatine Kinase 152 units/L (30-135) H 01/25/17 11:45 Troponin T 0.035 ng/mL (0.00-0.029) H D 01/24/17 20:51 NT-Pro-B Natriuret Pep 692.5 pg/mL (0-900) 01/24/17 11:42 Total Protein 8.3 g/dL (6.3-8.2) H 01/24/17 11:42 Albumin 3.5 g/dL (3.9-5) L 01/24/17 11:42 Albumin/Globulin Ratio 0.7 % 01/24/17 11:42 Triglycerides 77 mg/dL (2-149) 01/24/17 20:51 Cholesterol 181 mg/dL (50-199) 01/24/17 20:51 LDL Cholesterol Direct 116 mg/dL (50-130) 01/24/17 20:51 HDL Cholesterol 50 mg/dL (40-59) 01/24/17 20:51 Cholesterol/HDL Ratio 3.62 % 01/24/17 20:51 HIV 1&2 Antibody Rapid Non react (Non React) 01/25/17 11:45 HIV P24 Antigen Non react (Non React) 01/25/17 11:45 - Imaging and Cardiology Chest x-ray: image reviewed (no acute pathology)
[2017-01-25 19:06] LABS: Bilirubin,Urine NEG (Negative); Blood,Urine NEG (Negative); Ketones,Urine NEG (Negative); Leukocyte Esterase,Urine TR (Negative); Nitrite,Urine NEG (Negative); Urobilinogen,Urine < 2.0 mg/dL (<2.0)
[2017-01-25 19:15] LABS: Protein,Urine >500 mg/dL (Negative)
[2017-01-26] MEDS: APRESOLINE PO SCH ×3 (05:49→14:00)
[2017-01-26 06:55] LABS: BUN/Creatinine Ratio 23.75; Calcium 7.9 mg/dL (8.4-10.2); Chloride 105.4 mmol/L (98-107); Potassium 4.3 mmol/L (3.6-5.0)
[2017-01-26] MEDS: PROVENTIL IH SCH ×2 (07:41→13:29)
--- NOTE | 2017-01-26 07:42 | Progress Note ---
Assessment and Plan Impression: * RACHEAL on ?ckd * s/p fall * HTN * DM type 2 * obesity * proteinuria Plan: * strict i/os * dialy lytes * avoid nephrotoxins * ua with lytes noted * renal diet * control bp, better today * maybe ckd due to HTN/DM * follow up renal/bladder us * check spep with proteinuria * cr 2.4 and stable, likely ckd due to uncontrolled HTN/DM, she saw forklift technician in past without recent follow up * stable from renal standpoint, will need outpatient follow up of ckd Subjective Date of service: 01/26/17 Principal diagnosis: racheal on ckd Interval history: resting well in bed today Objective - Exam Narrative Exam: - General Limitations: Physical Limitation General appearance: obese - Head Head exam: Present: atraumatic, normocephalic - Eye Eye exam: Present: normal appearance, EOMI. Absent: nystagmus - ENT ENT exam: Present: normal exam, normal orophraynx, mucous membranes moist, normal external ear exam - Neck Neck exam: Present: normal inspection, full ROM. Absent: tenderness, meningismus - Respiratory Respiratory exam: Present: respiratory distress, wheezes, rhonchi - Cardiovascular Cardiovascular Exam: Present: regular rate, normal rhythm, normal heart sounds. Absent: systolic murmur, diastolic murmur, rubs, gallop - GI/Abdominal GI/Abdominal exam: Present: soft, normal bowel sounds. Absent: distended, tenderness, guarding, rebound, rigid, pulsatile mass - Extremities Exam Extremities exam: Present: normal inspection, normal capillary refill, pedal edema, calf tenderness - Back Exam Back exam: Present: normal inspection, full ROM, paraspinal tenderness, vertebral tenderness, other (there is lumbar tenderness. ). Absent: tenderness , CVA tenderness (R) - Neurological Exam Neurological exam: Present: alert, oriented X3, other (Extraocular movements intact. Tongue midline. No facial droop. Facial sensation intact to light touch in the V1, V2, V3 distribution bilaterally. 5 and 5 strength in 4 extremities.. Sensation is intact to light touch in 4 extremities.). Absent: motor sensory deficit - Psychiatric Psychiatric exam: Present: normal affect, normal mood - Skin Skin exam: Present: warm, dry, intact, normal color. Absent: rash - Vital Signs Vital signs: Vital Signs - 12hr 01/25/17 01/25/17 01/25/17 20:48 21:13 21:17 Temperature 98.6 F Pulse Rate 78 Pulse Rate [ 72 Anterior Bilateral Throughout] Respiratory 22 Rate Respiratory 20 Rate [Anterior Bilateral Throughout] Blood Pressure 173/77 O2 Sat by Pulse 97 99 Oximetry 01/25/17 01/25/17 01/26/17 21:21 22:48 01:16 Temperature 98.3 F Pulse Rate 68 74 Pulse Rate [ Anterior Bilateral Throughout] Respiratory 19 22 Rate Respiratory Rate [Anterior Bilateral Throughout] Blood Pressure 135/63 O2 Sat by Pulse 98 98 98 Oximetry 01/26/17 05:57 Temperature 97.8 F Pulse Rate 66 Pulse Rate [ Anterior Bilateral Throughout] Respiratory 20 Rate Respiratory Rate [Anterior Bilateral Throughout] Blood Pressure 140/65 O2 Sat by Pulse 98 Oximetry - Lab 01/24/17 17:28 01/26/17 06:13 Most recent lab results Calcium 7.9 mg/dL (8.4-10.2) L 01/26/17 06:13 Urine Creatinine 98.1 mg/dL (0.1-20.0) H 01/25/17 18:00 Urine Sodium 24 mEq/L 01/25/17 18:00 Urine Total Protein 368 mg/dL (5-11.8) H 01/25/17 18:00
--- NOTE | 2017-01-26 08:14 | Ultrasound Report ---
ULTRASOUND RENAL BILATERAL ULTRASOUND BLADDER RESIDUAL HISTORY: Renal failure. TECHNIQUE: transabdominal ultrasound with color Doppler interrogation. FINDINGS: The right kidney measures 9.0 x 4.5 x 4.1cm. Right renal cortex: 1.6cm. The left kidney measures 10.8 x 4.8 x 5.1cm. Left renal cortex: 1.6cm. Resolution of the kidney images are limited secondary to body habitus. Grossly the kidneys appear normal size, contour and position. There is mild increased renal echotexture suggesting nonspecific renal parenchymal disease. No cystic disease, mass, shadowing calculus or hydronephrosis is appreciated. Prevoid bladder volume measures 276 cc. Post void residual measures 75 cc. IMPRESSION: Limited exam. Slightly echogenic kidneys consistent with renal parenchymal disease. No focal renal lesion or hydronephrosis. Moderate postvoid residual measuring 75 cc.
--- NOTE | 2017-01-26 08:48 | Discharge Summary ---
Providers - Providers Date of Admission: 01/24/17 13:32 Attending physician: FABIO VANG MD 01/25/17 11:06 Consult to Physician [CONS] Routine Consulting Provider: SACHA CHAPMAN Reason For Exam: RACHEAL Place consult to:: DR. CHAPMAN Notified:: OFFICE Phone number called:: [phone] Was contact made?: Yes Time called:: 11:34 Comment:: CONSULT COMPLETED - POORNIMA 01/25/17 12:52 Occupational Therapy Evaluate and Treat [CONS] Routine Comment: Reason For Exam: DEBILIT Physical Therapy Evaluation and Treat [CONS] Routine Comment: Reason For Exam: DEBILITY Primary care physician: CLINICAL NURSING COORDINATOR Hospitalization Reason for admission: FALL, CHEST PAIN Condition: Stable Hospital course: 66 YO Female with HTN, DM, OA, MO, COPD presents to ED for evaluation. Pt states that she has experienced pain in her chest , leg swelling, and leg pain for the past 1 day with worsening symptoms over the past 4 hours. Pt chest pain is 6/10, substernal, nonradiating, not exacerbated with exertion, or relieved with rest. Pain is associated with shortness of breath. Pt acknowledges productive cough with increased sputum, but denies fever, chills, palpitations, NVD, skin rash or recent ill contacts. patient reports chest pain started after the fall secondary to her legs giving out. Her echo is showing a normal LVEF with evidence of elevated RVSP secondary to diastolic dysfunction, sleep apnea and obesity hypoventilation syndrome, no further cardiac work up was recommended. Patient reports Snoring, daytime sleepiness and fatigue, patient was seen by Government Affairs Specialist. she has outpatient nephrology appt, SPEP was done and is to be followed outpatient. Also recommeded to have sleep study. Patient refused Rehab or Home health. She is stable for discharge. HIV test was non reactive. Once again cardiology recommended conservative cardiac management. Normal left ventricle with systolic ejection function of 60-65%. On discussion with the patient I did recommend outpatient evaluation for age-appropriate screening considering anemia. * Atypical chest pain secondary to costochondritis following a fall * Diabetes mellitus * Metabolic syndrome * Possible obesity hypoventilation syndrome * Proteinuria * Acute kidney injury secondary to vasomotor nephropathy ON Possible underlying CKD * COPD * History of spinal stenosis per patient * Severe pulmonary hypertension * Anemia * Morbid Obesity BMI 50.8 * Mechanical fall- she denies syncope * Hypertensive urgency Disposition: DC-01 TO HOME OR SELFCARE Time spent for discharge: 35 MINS Core Measure Documentation - Palliative Care Palliative Care/ Comfort Measures: Not Applicable - Core Measures Any of the following diagnoses?: none - VTE Discharge Requirements Deep Vein Thrombosis/Pulmonary Embolism Present on Admission: No Exam - Physical Exam Narrative exam: VITAL SIGNS: Reviewed. GENERAL: The patient appeared pretty obese in no acute distress. Vital signs as documented. HEAD: No signs of head trauma. EYES: Pupils are equal. Extraocular motions intact. EARS: Hearing grossly intact. MOUTH: Oropharynx is normal. NECK: No adenopathy, no JVD. CHEST: Chest with diminished breath sounds bilaterally. No wheezes, rales, or rhonchi. CARDIAC: Regular rate and rhythm. S1 and S2, without murmurs, gallops, or rubs. VASCULAR: Lower foot edema +2.. Peripheral pulses normal and equal in all extremities. ABDOMEN: Soft, without detectable tenderness. No sign of distention. No rebound or guarding, and no masses palpated. Bowel Sounds normal. MUSCULOSKELETAL: Good range of motion of all major joints. Extremities without clubbing, cyanosis there is right foot edema. NEUROLOGIC EXAM: Alert and oriented x 3. No focal sensory or strength deficits. Speech normal. Follows commands. PSYCHIATRIC: Mood normal. SKIN: No rash or lesions. - Constitutional Vitals: Temp Pulse Resp BP Pulse Ox 97.8 F 82 17 140/65 99 01/26/17 05:57 01/26/17 08:02 01/26/17 08:02 01/26/17 05:57 01/26/17 07:45 Plan Activity: advance as tolerated Diet: diabetic, renal Special Instructions: record daily weights, record daily BP diary Additional Instructions: FOLLOW WITH DR WERNER-Government Affairs Specialist or her primary Government Affairs Specialist in One week. Follow with Sleep center at [facility] Follow up with: KENNEDY WERNER MD [Staff Physician] - 7 Days PRIMARY CAREMD [Primary Care Provider] - 3-5 Days KIM BLACKBURN MD [Staff Physician] - 7 Days Prescriptions: amLODIPine [Norvasc] 10 mg PO DAILY #14 tablet hydrALAZINE [Apresoline TAB] 50 mg PO Q8H #30 tablet HYDROcodone/APAP 7.5-325 [[place] 7.5-325 mg TAB] 1 each PO Q6HR PRN #14 tablet PRN Reason: Pain Sodium Bicarbonate 1,300 mg PO BID #10 tablet
[2017-01-26] MEDS: NEURONTIN PO SCH (09:26)
[2017-01-26] MEDS: DITROPAN PO SCH (09:27)
[2017-01-26] MEDS: NOVOLOG SUB-Q SCH ×2 (09:27→12:00)
[2017-01-26] MEDS: NORVASC PO SCH (09:27)
[2017-01-26] MEDS ORDERED: SODIUM BICARBONATE PO SCH (10:00)
--- NOTE | 2017-01-26 11:15 | Progress Note ---
Assessment and Plan s/p Fall spondylolisthesis on lumbar CT Chest pain, atypical Shortness of breath, multifactorial Sleep apnea Obesity hypoventilation syndrome Acute renal failure Anemia Diabetes mellitus Hypertension Hx of Spinal stenosis per pt Echocardiogram reports severe pulmonary hypertension, RVSP 62mmHg. Normal LV systolic function, EF 60-65%. Conservative cardiac management. Subjective Date of service: 01/26/17 Principal diagnosis: steve on ckd Interval history: Patient denies chest pain, shortness of breath and palpitations. No events on telemetry overnight. Objective Vital Signs Temp Pulse Pulse Resp Resp BP Pulse Ox 01/26/17 09:27 80 136/78 01/26/17 08:02 82 17 01/26/17 08:00 99.1 F 70 20 143/59 100 01/26/17 07:45 99 01/26/17 07:41 74 16 01/26/17 05:57 97.8 F 66 20 140/65 98 01/26/17 01:16 98.3 F 74 22 135/63 98 01/25/17 22:48 68 19 98 01/25/17 21:21 98 01/25/17 21:17 72 20 01/25/17 21:13 99 01/25/17 20:48 98.6 F 78 22 173/77 97 01/25/17 19:22 59 L 01/25/17 16:00 98.7 F 68 20 173/75 01/25/17 15:00 60 01/25/17 12:00 99 F 71 20 182/70 100 - Physical Examination General: No Apparent Distress, Other (obese) HEENT: Positive: PERRL Cardiac: Positive: Reg Rate and Rhythm Neuro: Positive: Grossly Intact - Labs and Meds Comprehensive Metabolic Panel 01/26/17 Range/Units 06:13 Sodium 139 (137-145) mmol/L Potassium 4.3 (3.6-5.0) mmol/L Chloride 105.4 (98-107) mmol/L Carbon Dioxide 17 L (22-30) mmol/L BUN 57 H (7-17) mg/dL Creatinine 2.4 H (0.7-1.2) mg/dL Glucose 134 H (65-100) mg/dL Calcium 7.9 L (8.4-10.2) mg/dL
[2017-01-26 12:19] VITALS: BP 153/71
[2017-01-26] MEDS ORDERED: PNEUMOVAX 23 IM ONE (18:00)
[2017-01-27 20:53] LABS: Albumin 3.5 g/dL (3.8-4.8); Gamma Globulin 2.3 g/dL (0.8-1.7)
== END 2017-01-26 17:15 | disposition home or self-care (01) | DRG 205 ==
LOC: ED 10:24 → 4A 13:32
PROVIDERS: ADMIT Internal Medicine; ATTEND Internal Medicine
PROC: 5A09357 Assistance with Respiratory Ventilation, Less than 24 Consecutive Hours, Continuous Positive Airway Pressure (ICD-10-PCS; principal; 2017-01-25)
DX: M94.0 Chondrocostal junction syndrome [Tietze] (principal); N17.0 Acute kidney failure with tubular necrosis; J44.1 Chronic obstructive pulmonary disease with (acute) exacerbation; E66.2 Morbid (severe) obesity with alveolar hypoventilation; Z68.43 Body mass index [BMI] 50.0-59.9, adult; E88.81 Metabolic syndrome and other insulin resistance; I16.0 Hypertensive urgency; M19.90 Unspecified osteoarthritis, unspecified site; M43.06 Spondylolysis, lumbar region; I27.2 Other secondary pulmonary hypertension; I12.9 Hypertensive chronic kidney disease with stage 1 through stage 4 chronic kidney disease, or unspecified chronic kidney disease; M48.06 Spinal stenosis, lumbar region; Z96.659 Presence of unspecified artificial knee joint; N18.9 Chronic kidney disease, unspecified; E11.22 Type 2 diabetes mellitus with diabetic chronic kidney disease; D64.9 Anemia, unspecified; Z83.3 Family history of diabetes mellitus; Z82.49 Family history of ischemic heart disease and other diseases of the circulatory system; Z88.0 Allergy status to penicillin; Z79.899 Other long term (current) drug therapy; Z87.891 Personal history of nicotine dependence
CPT/HCPCS: 36415; 71020; 72131; 72170; 76770; 76857; 80048; 80053; 80061; 81001; 82550; 82570; 82962; 83880; 84156; 84165; 84166; 84300; 84484; 85025; 85379; 85610; 85730; 87806; 89050; 90732; 93005; 93010; 93306; 93970; 94640; 94660; 94760; 96374; 96375; G8987-GO; G8988-GO; G8989-GO; J0360; J1815; J2930; J3475

== ENCOUNTER 2017-02-07 11:00 | Outpatient (CLI) | payer MEDICARE | END 2017-02-07 11:01 | disposition home or self-care (01) | LOC: SLR 11:00 | PROVIDERS: ATTEND Internal Medicine | DX: G47.33 Obstructive sleep apnea (adult) (pediatric) (principal); E11.9 Type 2 diabetes mellitus without complications; I10 Essential (primary) hypertension; Z87.891 Personal history of nicotine dependence | CPT/HCPCS: 95810 ==

== ENCOUNTER 2017-02-21 11:00 | Outpatient (CLI) | payer MEDICARE | END 2017-02-21 11:01 | disposition home or self-care (01) | LOC: SLR 11:00 | PROVIDERS: ATTEND Internal Medicine | DX: G47.33 Obstructive sleep apnea (adult) (pediatric) (principal); I10 Essential (primary) hypertension; J44.1 Chronic obstructive pulmonary disease with (acute) exacerbation; E11.9 Type 2 diabetes mellitus without complications; Z87.891 Personal history of nicotine dependence | CPT/HCPCS: 95811 ==

== ENCOUNTER 2017-05-20 11:57 | Inpatient (IN) | payer MEDICARE ==
[2017-05-20 12:29] LABS: Basophils % (Auto) 0.6 % (0.0-1.8); Eosinophils % (Auto) 1.6 % (0.0-4.3); Hematocrit 23.4 % (30.3-42.9); Hemoglobin 7.4 gm/dl (10.1-14.3); Mean Corpuscular HGB Conc 32 % (30-34); Mean Corpuscular Volume 72 fl (79-97); Platelet Count 252 K/mm3 (140-440); Red Blood Count 3.27 M/mm3 (3.65-5.03); White Blood Count 12.1 K/mm3 (4.5-11.0)
[2017-05-20 12:32] LABS: Mean Corpuscular Hemoglobin 23 pg (28-32)
[2017-05-20 12:55] LABS: Calcium 8.3 mg/dL (8.4-10.2); Chloride 103.9 mmol/L (98-107); Potassium 4.2 mmol/L (3.6-5.0)
--- NOTE | 2017-05-20 13:28 | XRay Report ---
CHEST TWO VIEWS: 05/20/17 CLINICAL: Shortness of breath. COMPARISON: 01/24/17 FINDINGS: Normal heart and pulmonary vasculature. The lungs are normally expanded and clear. Calcified hilar granulomata. Aortic tortuosity.Degenerative change in the spine. IMPRESSION: Old granulomatous disease and hypertensive changes in the aorta.No acute cardiopulmonary process.
[2017-05-20] MEDS ORDERED: ATROVENT IH ONE (13:38)
[2017-05-20] MEDS ORDERED: XOPENEX IH ONE (13:38)
--- NOTE | 2017-05-20 13:43 | Emergency Department Report ---
ED Shortness of Breath HPI - General Chief Complaint: Dyspnea/Respdistress Stated Complaint: SOB Time Seen by Provider: 05/20/17 13:32 Source: patient Mode of arrival: Wheelchair Limitations: No Limitations - History of Present Illness Initial Comments: Patient is 66 years old female history of COPD, hypertension, diabetes and obstructive sleep apnea, presented today with shortness of breath that started this morning when she wake up associated with cough nonproductive and chills. She denies chest pain, no nausea no vomiting. MD Complaint: shortness of breath -: Gradual Known History Of: COPD Associated Symptoms: cough, sputum production - Related Data Home Medications Medication Instructions Recorded Confirmed Last Taken Gabapentin [Neurontin] 300 mg PO BID 01/24/17 01/24/17 Unknown Glimepiride [Amaryl] 1 mg PO QAM 01/24/17 01/24/17 Unknown Oxybutynin [Ditropan] 5 mg PO BID 01/24/17 01/24/17 Unknown traMADol [Ultram 50 MG tab] 50 mg PO Q4HR PRN 01/24/17 01/24/17 Unknown Previous Rx's Medication Instructions Recorded Last Taken Type HYDROcodone/APAP 7.5-325 [[place] 1 each PO Q6HR PRN #14 tablet 01/26/17 Unknown Rx 7.5-325 mg TAB] Sodium Bicarbonate 1,300 mg PO BID #10 tablet 01/26/17 Unknown Rx amLODIPine [Norvasc] 10 mg PO DAILY #14 tablet 01/26/17 Unknown Rx hydrALAZINE [Apresoline TAB] 50 mg PO Q8H #30 tablet 01/26/17 Unknown Rx Allergies Allergy/AdvReac Type Severity Reaction Status Date / Time Penicillins Allergy Rash Verified 05/20/17 12:07 ED Review of Systems ROS: Stated complaint: SOB Other details as noted in HPI Comment: All other systems reviewed and negative Constitutional: chills. denies: fever Respiratory: cough, shortness of breath, SOB with exertion, SOB at rest, wheezing Cardiovascular: dyspnea on exertion. denies: chest pain, palpitations Gastrointestinal: denies: abdominal pain, nausea, vomiting, diarrhea, constipation, hematemesis, melena, hematochezia Musculoskeletal: denies: back pain Neurological: denies: headache, weakness, paresthesias, confusion ED Past Medical Hx - Past Medical History Hx Hypertension: Yes Hx Diabetes: Yes Hx Arthritis: Yes - Surgical History Additional Surgical History: Left knee surgery, Abd hernia repair - Social History Smoking Status: Never Smoker Substance Use Type: None - Medications Home Medications: Home Medications Medication Instructions Recorded Confirmed Last Taken Type Gabapentin [Neurontin] 300 mg PO BID 01/24/17 01/24/17 Unknown History Glimepiride [Amaryl] 1 mg PO QAM 01/24/17 01/24/17 Unknown History Oxybutynin [Ditropan] 5 mg PO BID 01/24/17 01/24/17 Unknown History traMADol [Ultram 50 MG tab] 50 mg PO Q4HR PRN 01/24/17 01/24/17 Unknown History HYDROcodone/APAP 7.5-325 [[place] 1 each PO Q6HR PRN #14 tablet 01/26/17 Unknown Rx 7.5-325 mg TAB] Sodium Bicarbonate 1,300 mg PO BID #10 tablet 01/26/17 Unknown Rx amLODIPine [Norvasc] 10 mg PO DAILY #14 tablet 01/26/17 Unknown Rx hydrALAZINE [Apresoline TAB] 50 mg PO Q8H #30 tablet 01/26/17 Unknown Rx ED Physical Exam - General Limitations: No Limitations General appearance: alert, in no apparent distress - Eye Eye exam: Present: normal appearance, PERRL - ENT ENT exam: Present: normal exam, normal orophraynx, mucous membranes moist - Neck Neck exam: Present: normal inspection, full ROM. Absent: tenderness, meningismus, lymphadenopathy, thyromegaly - Respiratory Respiratory exam: Present: decreased breath sounds, prolonged expiratory. Absent: respiratory distress, wheezes, rales, rhonchi, stridor - Cardiovascular Cardiovascular Exam: Present: regular rate, normal rhythm, normal heart sounds - GI/Abdominal GI/Abdominal exam: Present: soft, normal bowel sounds. Absent: distended, tenderness, guarding, rebound, rigid, organomegaly, mass, bruit, pulsatile mass , hernia - Back Exam Back exam: Present: normal inspection, full ROM. Absent: tenderness, CVA tenderness (R), CVA tenderness (L), muscle spasm, paraspinal tenderness, vertebral tenderness, rash noted - Neurological Exam Neurological exam: Present: alert, oriented X3, CN II-XII intact, normal gait, reflexes normal. Absent: abnormal gait, motor sensory deficit - Skin Skin exam: Present: warm, intact, normal color ED Course Vital Signs 05/20/17 05/20/17 05/20/17 12:07 14:05 14:11 Temperature 98.7 F Pulse Rate 84 Pulse Rate [ 80 82 Anterior Bilateral Throughout] Respiratory 24 Rate Respiratory 18 18 Rate [Anterior Bilateral Throughout] Blood Pressure 211/98 O2 Sat by Pulse 97 Oximetry ED Medical Decision Making - Lab Data Result diagrams: 05/20/17 12:23 05/20/17 12:17 - EKG Data -: EKG Interpreted by Me EKG shows normal: sinus rhythm - EKG Data Interpretation: no acute changes - Radiology Data Radiology results: report reviewed Chest x-ray no acute finding. - Medical Decision Making Discussed the patient is Dr. Ribeiro, who presented the patient to him he agreed to admit the patient to his service. Critical care attestation.: If time is entered above; I have spent that time in minutes in the direct care of this critically ill patient, excluding procedure time. ED Disposition Clinical Impression: Shortness of breath, Acute on chronic renal failure, COPD exacerbation, Acute exacerbation of CHF (congestive heart failure) Disposition: OP ADMIT IP TO THIS HOSP Is pt being admited?: Yes Condition: Stable Instructions: Chronic Bronchitis (ED) Referrals: PRIMARY CARE, [Primary Care Provider] - 3-5 Days
[2017-05-20] MEDS ORDERED: LASIX IV ONE (14:30)
--- NOTE | 2017-05-20 14:53 | History and Physical Report ---
History of Present Illness Date of examination: 05/20/17 (consulted at 1450hrs) Chief complaint: I cant breathe History of present illness: 66 YO Female with HTN, DM, OA, MO, COPD, STEPHEN on CPAP presents to ED for evaluation. Pt states that she has experienced shortness of breath and nonproductive cough for the past 1 day with worsening symptoms over the past 6 hours. Pt denies sore throat, fever, chills, Chest pain, palpitations,NVD, skin rash or recent ill contacts. Pt seen and evaluated in ED and found to be in respiratory distress, and treated with supplemental oxygen. Past History Past Medical History: arthritis, COPD, diabetes, hypertension Past Surgical History: hernia repair, Other (Left Knee surgery) Social history: , lives with family. denies: smoking, alcohol abuse, prescription drug abuse Family history: diabetes, hypertension Medications and Allergies Allergies Allergy/AdvReac Type Severity Reaction Status Date / Time Penicillins Allergy Rash Verified 05/20/17 12:07 Home Medications Medication Instructions Recorded Confirmed Last Taken Type Gabapentin [Neurontin] 300 mg PO BID 01/24/17 05/20/17 Unknown History Glimepiride [Amaryl] 1 mg PO QAM 01/24/17 05/20/17 Unknown History Oxybutynin [Ditropan] 5 mg PO BID 01/24/17 05/20/17 Unknown History traMADol [Ultram 50 MG tab] 50 mg PO Q4HR PRN 01/24/17 05/20/17 Unknown History HYDROcodone/APAP 7.5-325 [[place] 1 each PO Q6HR PRN #14 tablet 01/26/17 05/20/17 Unknown Rx 7.5-325 mg TAB] Sodium Bicarbonate 1,300 mg PO BID #10 tablet 01/26/17 05/20/17 Unknown Rx amLODIPine [Norvasc] 10 mg PO DAILY #14 tablet 01/26/17 05/20/17 Unknown Rx hydrALAZINE [Apresoline TAB] 50 mg PO Q8H #30 tablet 01/26/17 05/20/17 Unknown Rx Review of Systems Constitutional: no weight loss, no weight gain, no fever, no chills Ears, nose, mouth and throat: no ear pain, no ear discharge, no tinnitis, no decreased hearing, no nose pain Breasts: no change in shape, no swelling, no mass Cardiovascular: shortness of breath, no chest pain Respiratory: cough, no excessive sputum, no hemoptysis Gastrointestinal: no abdominal pain, no nausea, no vomiting, no diarrhea Genitourinary Female: no pelvic pain, no flank pain, no menorrhagia, no dysuria Rectal: no pain, no incontinence, no bleeding Musculoskeletal: no neck stiffness, no neck pain, no shooting arm pain, no arm numbness/tingling, no low back pain Integumentary: no rash, no pruritis, no redness, no sores, no wounds Neurological: no transient paralysis, no paralysis, no weakness, no parathesias , no numbness, no tingling Psychiatric: no memory loss, no change in sleep habits, no sleep disturbances, no insomnia, no change in appetite, no change in libido, no suicidal ideation Endocrine: no cold intolerance, no heat intolerance, no polyphagia, no excessive thirst, no polydipsia, no polyuria Hematologic/Lymphatic: no easy bruising, no easy bleeding Allergic/Immunologic: no urticaria, no allergic rhinitis, no wheezing Exam - Constitutional Vitals: Temp Pulse Resp BP Pulse Ox 98.7 F 82 18 211/98 97 05/20/17 12:07 05/20/17 14:11 05/20/17 14:11 05/20/17 12:07 05/20/17 12:07 General appearance: Present: mild distress, obese - EENT Eyes: Present: PERRL ENT: hearing intact, clear oral mucosa - Neck Neck: Present: supple, normal ROM - Respiratory Respiratory effort: labored Respiratory: bilateral: diminished - Cardiovascular Heart Sounds: Present: S1 & S2. Absent: rub, click - Extremities Extremities: pulses symmetrical, No edema Extremity abnormal: edema Peripheral Pulses: within normal limits - Abdominal General gastrointestinal: Present: soft, non-tender, non-distended, normal bowel sounds Female genitourinary: Present: normal - Integumentary Integumentary: Present: clear, warm, dry - Musculoskeletal Musculoskeletal: gait normal, strength equal bilaterally - Psychiatric Psychiatric: appropriate mood/affect, intact judgment & insight, agitated - Neurologic Neurologic: CNII-XII intact, moves all extremities Results - Labs CBC & Chem 7: 05/20/17 12:23 05/20/17 12:17 Labs: Abnormal lab results 05/20/17 05/20/17 05/20/17 Range/Units 12:17 12:23 12:23 WBC 12.1 H (4.5-11.0) K/mm3 RBC 3.27 L (3.65-5.03) M/mm3 Hgb 7.4 L (10.1-14.3) gm/dl Hct 23.4 L (30.3-42.9) % MCV 72 L (79-97) fl MCH 23 L (28-32) pg RDW 16.0 H (13.2-15.2) % Mcmullen % (Auto) 7.7 H (0.0-7.3) % Mcmullen # 0.9 H (0.0-0.8) K/mm3 Seg Neutrophils % 72.7 H (40.0-70.0) % Seg Neutrophils # 8.8 H (1.8-7.7) K/mm3 BUN 46 H (7-17) mg/dL Creatinine 3.9 H (0.7-1.2) mg/dL Glucose 120 H (65-100) mg/dL Calcium 8.3 L (8.4-10.2) mg/dL Troponin T 0.044 H (0.00-0.029) ng/mL NT-Pro-B Natriuret Pep 3431 H (0-900) pg/mL Assessment and Plan - Patient Problems (1) Acute respiratory failure Current Visit: Yes Status: Acute Plan to address problem: Supplemental oxygen, nebulizer therapy, aspiration precautions, incentive spirometry, supportive care. NIPPV (2) ARF (acute renal failure) Current Visit: Yes Status: Acute Plan to address problem: urine electrolytes, monitor uop q shift, repeat bmp, will consider renal consult in worsening renal function and/or serum creatnine level. (3) Accelerated hypertension Current Visit: Yes Status: Acute Plan to address problem: monitor bp q shift, resume home medication, IV hydralazine for systolic above 155. (4) COPD exacerbation Current Visit: Yes Status: Acute Plan to address problem: Supplemental oxygen, nebs, steroids, IV abx, incentive spirometry, supportive care, (5) Pulmonary hypertension Current Visit: Yes Status: Acute Plan to address problem: Severe: normal EF on recent Echocardiogram, elevated PASP. supportive care, outpatient Pulmonary F/U care. (6) DVT prophylaxis Current Visit: No Status: Acute
[2017-05-20] MEDS ORDERED: PROVENTIL IH PRN (14:58)
[2017-05-20] MEDS ORDERED: ZOFRAN IV PRN (14:58)
[2017-05-20] MEDS ORDERED: TYLENOL PO PRN (14:58)
[2017-05-20] MEDS ORDERED: LEVAQUIN 500MG/100ML 500 MG/100 ML BAG IV ONE ×2 (15:54→22:00)
[2017-05-20] MEDS ORDERED: ZITHROMAX 500 MG in NACL 0.9% 250ML 250 ML IV SCH (16:00)
[2017-05-20] MEDS: APRESOLINE PO SCH ×2 (16:03→22:40)
[2017-05-20] MEDS: DITROPAN PO SCH (22:31)
[2017-05-20] MEDS: SODIUM BICARBONATE PO SCH (22:32)
[2017-05-20] MEDS: NEURONTIN PO SCH (22:32)
[2017-05-20] MEDS: NORCO 7.5/325 PO PRN (22:39)
[2017-05-21] MEDS: APRESOLINE PO SCH ×4 (01:13→16:56)
[2017-05-21] MEDS: APRESOLINE IV PRN (05:37)
[2017-05-21] MEDS: SODIUM BICARBONATE PO SCH ×3 (08:52→22:42)
[2017-05-21] MEDS: NORCO 7.5/325 PO PRN ×2 (08:53→22:43)
[2017-05-21] MEDS: NORVASC PO SCH ×2 (08:54→10:00)
[2017-05-21] MEDS: DITROPAN PO SCH ×3 (08:54→22:42)
[2017-05-21] MEDS: NEURONTIN PO SCH ×3 (08:55→22:42)
[2017-05-21] MEDS ORDERED: PNEUMOVAX 23 IM ONE (12:00)
[2017-05-21] MEDS: ZITHROMAX PO SCH (12:30)
--- NOTE | 2017-05-21 13:07 | Progress Note ---
Assessment and Plan - Acute respiratory failure: Supplemental oxygen, Duoneb, iv Azithromycin, nebulizer therapy, aspiration precautions, incentive spirometry, supportive care. NIPPV - ARF (acute renal failure: urine electrolytes, monitor uop q shift, repeat bmp , Nephrology consult. Trend serum creatinine level. Avoid nephrotoxic agent - Accelerated hypertension: monitor bp q shift, resume home medication, IV hydralazine for systolic above 155. - COPD exacerbation: Supplemental oxygen, nebs, steroids, IV abx, incentive spirometry, supportive care, - Diastolic heart Failure: Gentle diaretic b/c RACHEAL - Pulmonary hypertension, Severe: Echo of with LVEF 60-65% and elevated PASP. supportive care, outpatient Pulmonary F/U care. - DVT and GI Prophylaxis with Lovenox and Pepcid Subjective Date of service: 05/21/17 Principal diagnosis: Acute respiratory failure, COPD exercenation Acute on CKD stage 4, DB Interval history: Still having shortness of breath. No chest pain Objective - Constitutional Vitals: Vital Signs - 12hr 05/21/17 05/21/17 05/21/17 05:18 07:39 08:24 Temperature 97.7 F 98.1 F Pulse Rate 68 Respiratory 18 20 Rate Blood Pressure 165/75 165/67 O2 Sat by Pulse 97 99 Oximetry 05/21/17 05/21/17 08:54 09:00 Temperature Pulse Rate 68 68 Respiratory Rate Blood Pressure 165/67 165/67 O2 Sat by Pulse Oximetry General appearance: Present: no acute distress, mild distress, well-nourished - EENT Eyes: PERRL, EOM intact - Neck Neck: supple, normal ROM - Respiratory Respiratory effort: normal Respiratory: bilateral: diminished - Cardiovascular Rhythm: regular Heart Sounds: Present: S1 & S2. Absent: gallop, rub Extremities: pulses intact, No edema, normal color, Full ROM - Gastrointestinal General gastrointestinal: Present: soft, non-tender, non-distended, normal bowel sounds - Integumentary Integumentary: clear, warm, dry - Musculoskeletal Musculoskeletal: 1, strength equal bilaterally - Neurologic Neurologic: moves all extremities - Psychiatric Psychiatric: memory intact, appropriate mood/affect, intact judgment & insight - Labs CBC & Chem 7: 05/20/17 12:23 05/20/17 12:17 Labs: Abnormal lab results 05/20/17 05/20/17 05/20/17 Range/Units 12:17 12:23 22:13 BUN 46 H (7-17) mg/dL Creatinine 3.9 H (0.7-1.2) mg/dL Glucose 120 H (65-100) mg/dL POC Glucose 296 H (70-105) Calcium 8.3 L (8.4-10.2) mg/dL Troponin T 0.044 H (0.00-0.029) ng/mL NT-Pro-B Natriuret Pep 3431 H (0-900) pg/mL HDL Cholesterol 60 H (40-59) mg/dL Urine Creatinine (0.1-20.0) mg/dL 05/20/17 05/21/17 05/21/17 Range/Units Unknown 07:44 11:30 BUN (7-17) mg/dL Creatinine (0.7-1.2) mg/dL Glucose (65-100) mg/dL POC Glucose 206 H 252 H (70-105) Calcium (8.4-10.2) mg/dL Troponin T (0.00-0.029) ng/mL NT-Pro-B Natriuret Pep (0-900) pg/mL HDL Cholesterol (40-59) mg/dL Urine Creatinine 63.5 H (0.1-20.0) mg/dL
[2017-05-21] MEDS: PEPCID IV SCH (14:43)
[2017-05-21] MEDS ORDERED: D50W (25GM) Syringe IV PRN (15:24)
[2017-05-21] MEDS ORDERED: D50W (25GM) Vial IV PRN (15:29)
[2017-05-21] MEDS: NOVOLOG SUB-Q SCH ×2 (16:59→22:54)
[2017-05-21] MEDS ORDERED: LOVENOX SUB-Q SCH (22:00)
[2017-05-21] MEDS: LOVENOX SUB-Q SCH (22:43)
[2017-05-22] MEDS: APRESOLINE PO SCH ×3 (02:51→17:13)
[2017-05-22 07:24] LABS: Hematocrit 22.1 % (30.3-42.9); Hemoglobin 7.2 gm/dl (10.1-14.3); Mean Corpuscular HGB Conc 33 % (30-34); Platelet Count 264 K/mm3 (140-440); Red Blood Count 3.18 M/mm3 (3.65-5.03); Red Cell Distribution Width 16.2 % (13.2-15.2); White Blood Count 10.7 K/mm3 (4.5-11.0)
[2017-05-22 07:25] LABS: Mean Corpuscular Hemoglobin 23 pg (28-32); Mean Corpuscular Volume 70 fl (79-97)
[2017-05-22 07:57] LABS: Albumin 3.2 g/dL (3.9-5); Albumin/Globulin Ratio 0.6 %; Bilirubin,Total 0.2 mg/dL (0.1-1.2); Chloride 98.9 mmol/L (98-107); Potassium 4.7 mmol/L (3.6-5.0); Total Protein 8.3 g/dL (6.3-8.2)
[2017-05-22] MEDS: NOVOLOG SUB-Q SCH ×4 (08:40→23:21)
[2017-05-22 08:54] LABS: Basophils % (Manual) 0 % (0.0-1.8); Blastocytes % (Manual) 0 %; Eosinophils % (Manual) 0 % (0.0-4.3); Hypochromasia 1+; Microcytosis 1+; Total Cells Counted Percent 0
[2017-05-22 08:55] LABS: Diff Status Complete; Platelet Estimate Consistent w Auto
--- NOTE | 2017-05-22 09:43 | Consultation ---
History of Present Illness - Reason for Consult Consult date: 05/22/17 chronic renal failure Requesting physician: MYAH BARAJAS - History of Present Illness 66 YO Female with HTN, DM, OA, MO, COPD, STEPHEN on CPAP presents to ED for evaluation. Pt states that she has experienced shortness of breath and nonproductive cough for the past 1 day with worsening symptoms over the past 6 hours. Pt denies sore throat, fever, chills, Chest pain, palpitations,NVD, skin rash or recent ill contacts. Pt seen and evaluated in ED and found to be in respiratory distress, and treated with supplemental oxygen. She normally sees Dr. Holguin in the office. She does not recall her baseline renal function. Her shortness of breath has improved since her admission last night. She also had some ankle swelling which seems to have improved as well. Patient denies any recent nonsteroidal use. No gross hematuria or frequent urinary tract infection Past History Past Medical History: arthritis, COPD, diabetes, hypertension Past Surgical History: hernia repair, Other (Left Knee surgery) Social history: , lives with family. denies: smoking, alcohol abuse, prescription drug abuse Family history: diabetes, hypertension Medications and Allergies Allergies Allergy/AdvReac Type Severity Reaction Status Date / Time Penicillins Allergy Rash Verified 05/20/17 12:07 Home Medications Medication Instructions Recorded Confirmed Last Taken Type Gabapentin [Neurontin] 300 mg PO BID 01/24/17 05/20/17 Unknown History Glimepiride [Amaryl] 1 mg PO QAM 01/24/17 05/20/17 Unknown History Oxybutynin [Ditropan] 5 mg PO BID 01/24/17 05/20/17 Unknown History traMADol [Ultram 50 MG tab] 50 mg PO Q4HR PRN 01/24/17 05/20/17 Unknown History HYDROcodone/APAP 7.5-325 [[place] 1 each PO Q6HR PRN #14 tablet 01/26/17 05/20/17 Unknown Rx 7.5-325 mg TAB] Sodium Bicarbonate 1,300 mg PO BID #10 tablet 01/26/17 05/20/17 Unknown Rx amLODIPine [Norvasc] 10 mg PO DAILY #14 tablet 01/26/17 05/20/17 Unknown Rx hydrALAZINE [Apresoline TAB] 50 mg PO Q8H #30 tablet 01/26/17 05/20/17 Unknown Rx Active Meds: Active Medications Acetaminophen (Tylenol) 650 mg PO Q4H PRN PRN Reason: Pain MILD(1-3)/Fever >100.5/[place]OWLER Acetaminophen/Hydrocodone Bitart ([place] 7.5/325) 1 each PO Q6HR PRN PRN Reason: Pain Last Admin: 05/21/17 22:43 Dose: 1 each Albuterol (Proventil) 2.5 mg IH Q4HRT PRN PRN Reason: Shortness Of Breath Amlodipine Besylate (Norvasc) 10 mg PO DAILY [facility] Last Admin: 05/21/17 10:00 Dose: Not Given Azithromycin (Zithromax) 500 mg PO QDAY [facility] Last Admin: 05/21/17 12:30 Dose: 500 mg Dextrose (D50w (25gm) Vial) 25 gm IV PRN PRN PRN Reason: Hypoglycemia Enoxaparin Sodium (Lovenox) 30 mg SUB-Q DAILY@2200 [facility] Last Admin: 05/21/17 22:43 Dose: 30 mg Famotidine (Pepcid) 20 mg IV QDAY [facility] Last Admin: 05/21/17 14:43 Dose: 20 mg Gabapentin (Neurontin) 300 mg PO BID [facility] Last Admin: 05/21/17 22:42 Dose: 300 mg Hydralazine HCl (Apresoline) 50 mg PO Q8H [facility] Last Admin: 05/22/17 02:51 Dose: 50 mg Hydralazine HCl (Apresoline) 10 mg IV Q6HR PRN PRN Reason: HTN SYS>155 Last Admin: 05/21/17 05:37 Dose: 10 mg Insulin Aspart (Novolog) 0 units SUB-Q ACHS [facility] PRN Reason: Protocol Last Admin: 05/21/17 22:54 Dose: 2 units Methylprednisolone Sodium Succinate (Solu-Medrol) 40 mg IV Q12HR [facility] Last Admin: 05/21/17 22:43 Dose: 40 mg Ondansetron HCl (Zofran) 4 mg IV Q8H PRN PRN Reason: N/V unrelieved by Reglan Oxybutynin Chloride (Ditropan) 5 mg PO BID [facility] Last Admin: 05/21/17 22:42 Dose: 5 mg Sodium Bicarbonate (Sodium Bicarbonate) 1,300 mg PO BID [facility] Last Admin: 05/21/17 22:42 Dose: 1,300 mg Review of Systems All systems: negative (negative except as noted above) Exam - Vital Signs Vital signs: Vital Signs Temp Pulse Resp BP Pulse Ox 98.7 F 84 24 211/98 97 05/20/17 12:07 05/20/17 12:07 05/20/17 12:07 05/20/17 12:07 05/20/17 12:07 - General Appearance General appearance: well-developed, well-nourished, appears stated age EENT: PERRL, mucous membranes moist Neck: Present: neck supple, trachea midline. Absent: JVD/HJR, Masses Respiratory: Clear to Ascultation Heart: regular, normal heart rate Gastrointestinal: Present: normal, normoactive bowel sounds Integumentary: other (1+ edema. Chronic skin changes noted in both legs) Results - Lab Results 05/22/17 07:03 05/22/17 07:03 Most recent lab results Calcium 8.0 mg/dL (8.4-10.2) L 05/22/17 07:03 Urine Creatinine 63.5 mg/dL (0.1-20.0) H 05/20/17 Unknown Urine Sodium 80 mmol/L 05/20/17 Unknown Assessment and Plan Impression * Acute on chronic renal failure * Shortness of breath. Most likely secondary to COPD * Hypertension * Diabetes * Anemia Recommendations * Her baseline creatinine seems to be in the mid twos * Her renal function seemed to be getting worse. She may have a prerenal component * Shall check a UA as well as a fraction excretion of sodium * Renal ultrasound to assess kidney size and echogenicity * Shall hydrate her gently * Shall do vasculitis workup as well * Avoid nephrotoxins * Check office records regarding previous renal status and workup * Thank you very much for the consultation. Shall follow along with you
[2017-05-22] MEDS: SODIUM BICARBONATE PO SCH ×2 (10:07→23:19)
[2017-05-22] MEDS: ZITHROMAX PO SCH (10:08)
[2017-05-22] MEDS: NEURONTIN PO SCH ×2 (10:08→23:21)
[2017-05-22] MEDS: PEPCID IV SCH (10:09)
[2017-05-22] MEDS: DITROPAN PO SCH ×2 (10:09→23:21)
[2017-05-22] MEDS: NORVASC PO SCH (10:12)
[2017-05-22] MEDS: NACL 0.45% 1000 ML 1,000 ML IV SCH (10:22)
--- NOTE | 2017-05-22 18:19 | Progress Note ---
Assessment and Plan - Patient Problems (1) ARF (acute renal failure) Current Visit: Yes Status: Acute Plan to address problem: Acute on chronic renal failure 100 changes. Creatinine from baseline, we'll continue to monitor cautious hydration. (2) Accelerated hypertension Current Visit: Yes Status: Acute Plan to address problem: I just current blood pressure medications for better optimal control (3) Acute exacerbation of CHF (congestive heart failure) Current Visit: Yes Status: Acute Plan to address problem: On IV Lasix will continue monitor renal function closely (4) Acute respiratory failure Current Visit: Yes Status: Acute Plan to address problem: Chronic shortness of breath of multifactorial etiology CHF regurgitation also has COPD exacerbation continue aerosol treatment, O2 supplementation on diuresis as ordered Subjective Date of service: 05/22/17 Principal diagnosis: Acute respiratory failure, COPD exercenation Acute on CKD stage 4, DB Interval history: Patient seen and examined , chart reviewed ,events over the weekend noted , patient was admitted with shortness of breath, leg swelling and cough . Worup so far consistent with ARF and possible CHF and COPD exacerbation . Patient stated that she feels better overall today , less short of breath and no chest pain . Objective - Constitutional Vitals: Vital Signs - 12hr 05/22/17 05/22/17 05/22/17 07:00 08:00 10:00 Temperature 98.2 F 98.0 F Pulse Rate 62 58 L Respiratory 22 18 22 Rate Respiratory 20 Rate [Bilateral Leg] Respiratory 16 Rate [Right Leg ] Blood Pressure Blood Pressure 162/62 172/71 [Right] O2 Sat by Pulse 98 96 97 Oximetry 05/22/17 05/22/17 05/22/17 10:12 10:20 17:13 Temperature Pulse Rate 58 L 58 L 72 Respiratory Rate Respiratory Rate [Bilateral Leg] Respiratory Rate [Right Leg ] Blood Pressure 172/71 172/71 147/62 Blood Pressure [Right] O2 Sat by Pulse Oximetry General appearance: Present: no acute distress - EENT Eyes: PERRL - Neck Neck: supple, normal ROM - Respiratory Respiratory effort: normal Respiratory: bilateral: diminished, rales, wheezing - Cardiovascular Rhythm: regular Heart Sounds: Present: S1 & S2 Extremity abnormal: edema, pulses diminished - Gastrointestinal General gastrointestinal: Present: non-distended, normal bowel sounds Rectal Exam: deferred - Integumentary Integumentary: warm, dry - Musculoskeletal Musculoskeletal: strength equal bilaterally - Neurologic Neurologic: CNII-XII intact - Psychiatric Psychiatric: appropriate mood/affect - Labs CBC & Chem 7: 05/23/17 04:16 05/23/17 04:16 Labs: Abnormal lab results 05/21/17 05/22/17 05/22/17 Range/Units 22:24 07:03 07:03 RBC 3.18 L (3.65-5.03) M/mm3 Hgb 7.2 L (10.1-14.3) gm/dl Hct 22.1 L (30.3-42.9) % MCV 70 L (79-97) fl MCH 23 L (28-32) pg RDW 16.2 H (13.2-15.2) % Seg Neuts % (Manual) 96.0 H (40.0-70.0) % Lymphocytes % (Manual) 4.0 L (13.4-35.0) % Seg Neutrophils # Man 10.3 H (1.8-7.7) K/mm3 Lymphocytes # (Manual) 0.4 L (1.2-5.4) K/mm3 Carbon Dioxide 20 L (22-30) mmol/L BUN 70 H (7-17) mg/dL Creatinine 4.5 H (0.7-1.2) mg/dL Glucose 196 H (65-100) mg/dL POC Glucose 222 H (70-105) Calcium 8.0 L (8.4-10.2) mg/dL Total Protein 8.3 H (6.3-8.2) g/dL Albumin 3.2 L (3.9-5) g/dL Hepatitis C Antibody (NonReactive) 05/22/17 05/22/17 05/22/17 Range/Units 08:38 10:30 11:51 RBC (3.65-5.03) M/mm3 Hgb (10.1-14.3) gm/dl Hct (30.3-42.9) % MCV (79-97) fl MCH (28-32) pg RDW (13.2-15.2) % Seg Neuts % (Manual) (40.0-70.0) % Lymphocytes % (Manual) (13.4-35.0) % Seg Neutrophils # Man (1.8-7.7) K/mm3 Lymphocytes # (Manual) (1.2-5.4) K/mm3 Carbon Dioxide (22-30) mmol/L BUN (7-17) mg/dL Creatinine (0.7-1.2) mg/dL Glucose (65-100) mg/dL POC Glucose 222 H 227 H (70-105) Calcium (8.4-10.2) mg/dL Total Protein (6.3-8.2) g/dL Albumin (3.9-5) g/dL Hepatitis C Antibody Reactive A (NonReactive) 05/22/17 Range/Units 15:46 RBC (3.65-5.03) M/mm3 Hgb (10.1-14.3) gm/dl Hct (30.3-42.9) % MCV (79-97) fl MCH (28-32) pg RDW (13.2-15.2) % Seg Neuts % (Manual) (40.0-70.0) % Lymphocytes % (Manual) (13.4-35.0) % Seg Neutrophils # Man (1.8-7.7) K/mm3 Lymphocytes # (Manual) (1.2-5.4) K/mm3 Carbon Dioxide (22-30) mmol/L BUN (7-17) mg/dL Creatinine (0.7-1.2) mg/dL Glucose (65-100) mg/dL POC Glucose 286 H (70-105) Calcium (8.4-10.2) mg/dL Total Protein (6.3-8.2) g/dL Albumin (3.9-5) g/dL Hepatitis C Antibody (NonReactive)
[2017-05-22] MEDS: LOVENOX SUB-Q SCH (23:20)
[2017-05-23 04:59] LABS: Hematocrit 20.9 % (30.3-42.9); Hemoglobin 6.8 gm/dl (10.1-14.3); Mean Corpuscular HGB Conc 33 % (30-34); Mean Corpuscular Volume 72 fl (79-97); Platelet Count 224 K/mm3 (140-440); Red Blood Count 2.92 M/mm3 (3.65-5.03); Red Cell Distribution Width 16.2 % (13.2-15.2); White Blood Count 8.3 K/mm3 (4.5-11.0)
[2017-05-23 05:06] LABS: Mean Corpuscular Hemoglobin 23 pg (28-32)
[2017-05-23 05:17] LABS: Alanine Aminotransferase 11 units/L (7-56); Albumin 2.7 g/dL (3.9-5); Albumin/Globulin Ratio 0.5 %; Alkaline Phosphatase 79 units/L (35-129); Anion Gap 23 mmol/L; BUN/Creatinine Ratio 17; Bilirubin,Total < 0.20 mg/dL (0.1-1.2); Blood Urea Nitrogen 79 mg/dL (7-17); Calcium 7.4 mg/dL (8.4-10.2); Carbon Dioxide 18 mmol/L (22-30); Chloride 96.7 mmol/L (98-107); Glucose 246 mg/dL (65-100); Potassium 4.7 mmol/L (3.6-5.0); Sodium 133 mmol/L (137-145); Total Protein 7.8 g/dL (6.3-8.2)
[2017-05-23 07:13] LABS: Basophils % (Manual) 0 % (0.0-1.8); Blastocytes % (Manual) 0 %; Eosinophils % (Manual) 0 % (0.0-4.3); Microcytosis 1+
[2017-05-23 07:14] LABS: Diff Status Complete; Hypersegmented Neutrophils 1+; Hypochromasia 1+
--- NOTE | 2017-05-23 09:01 | Progress Note ---
Assessment and Plan Impression * Acute on chronic renal failure * Shortness of breath. Most likely secondary to COPD * Hypertension * Diabetes * Anemia * Metabolic acidosis * Hepatitis C Recommendations * Her baseline creatinine seems to be in the mid twos * Her renal function seemed to be getting worse. She may have a prerenal component. She was taking higher dose of Lasix prior to her admission * Awaiting results of UA as well as a fraction excretion of sodium * Follow up results of Renal ultrasound * Continue gentle hydration * Follow up results of vasculitis workup as well * Avoid nephrotoxins * Consider vascular surgery evaluation. She was seen by Dr. Agarwal a few weeks ago Subjective Date of service: 05/23/17 Principal diagnosis: Acute respiratory failure, COPD exercenation Acute on CKD stage 4, DB Interval history: Patient is awake and alert. Comfortable. Shortness of breath has improved. Denies any nausea vomiting or diarrhea. Still complains of some pain in her legs Objective - Vital Signs Vital signs: Vital Signs - 12hr 05/22/17 05/22/17 05/23/17 22:00 23:00 04:58 Temperature 98.6 F Pulse Rate 67 Respiratory 18 Rate Blood Pressure 172/72 O2 Sat by Pulse 97 97 97 Oximetry - General Appearance General appearance: well-developed, well-nourished, appears stated age, obese EENT: PERRL, mucous membranes moist Neck: no JVD, no thyromegaly, no carotid bruit, supple Respiratory: Present: Clear to Ascultation Cardiology: regular, normal heart rate, S1S2, no murmurs Gastrointestinal: normal, normoactive bowel sounds Integumentary: other (chronic skin changes noted in both her legs) - Lab 05/23/17 04:16 05/23/17 04:16 Most recent lab results Calcium 7.4 mg/dL (8.4-10.2) L 05/23/17 04:16 Urine Creatinine 63.5 mg/dL (0.1-20.0) H 05/20/17 Unknown Urine Sodium 80 mmol/L 05/20/17 Unknown
--- NOTE | 2017-05-23 09:29 | Progress Note ---
Assessment and Plan - Patient Problems (1) ARF (acute renal failure) Current Visit: Yes Status: Acute (2) Accelerated hypertension Current Visit: Yes Status: Acute (3) Acute exacerbation of CHF (congestive heart failure) Current Visit: Yes Status: Acute (4) Acute respiratory failure Current Visit: Yes Status: Acute Subjective Date of service: 05/23/17 Principal diagnosis: Acute respiratory failure, COPD exercenation Acute on CKD stage 4, DB Interval history: Patient seen and examined and chart reviewed consultants notes reviewed, patient denied any new complaints less short of breath, no fever reported. No chest pain Objective - Constitutional Vitals: Vital Signs - 12hr 05/22/17 05/22/17 05/23/17 22:00 23:00 04:58 Temperature 98.6 F Pulse Rate 67 Respiratory 18 Rate Blood Pressure 172/72 O2 Sat by Pulse 97 97 97 Oximetry General appearance: Present: no acute distress - Neck Neck: supple, normal ROM - Respiratory Respiratory effort: normal Respiratory: bilateral: diminished - Cardiovascular Rhythm: regular Heart Sounds: Present: S1 & S2 Extremity abnormal: edema - Gastrointestinal General gastrointestinal: Present: soft, non-tender, non-distended, normal bowel sounds - Integumentary Integumentary: clear, warm, dry - Musculoskeletal Musculoskeletal: strength equal bilaterally - Neurologic Neurologic: CNII-XII intact - Psychiatric Psychiatric: appropriate mood/affect - Labs CBC & Chem 7: 05/23/17 04:16 05/23/17 04:16 Labs: Abnormal lab results 05/22/17 05/22/17 05/22/17 Range/Units 10:30 11:51 15:46 RBC (3.65-5.03) M/mm3 Hgb (10.1-14.3) gm/dl Hct (30.3-42.9) % MCV (79-97) fl MCH (28-32) pg RDW (13.2-15.2) % Seg Neuts % (Manual) (40.0-70.0) % Lymphocytes % (Manual) (13.4-35.0) % Lymphocytes # (Manual) (1.2-5.4) K/mm3 Sodium (137-145) mmol/L Chloride (98-107) mmol/L Carbon Dioxide (22-30) mmol/L BUN (7-17) mg/dL Creatinine (0.7-1.2) mg/dL Glucose (65-100) mg/dL POC Glucose 227 H 286 H (70-105) Calcium (8.4-10.2) mg/dL Albumin (3.9-5) g/dL Hepatitis C Antibody Reactive A (NonReactive) 05/22/17 05/23/17 05/23/17 Range/Units 22:17 04:16 04:16 RBC 2.92 L (3.65-5.03) M/mm3 Hgb 6.8 L (10.1-14.3) gm/dl Hct 20.9 L (30.3-42.9) % MCV 72 L (79-97) fl MCH 23 L (28-32) pg RDW 16.2 H (13.2-15.2) % Seg Neuts % (Manual) 85.0 H (40.0-70.0) % Lymphocytes % (Manual) 6.0 L (13.4-35.0) % Lymphocytes # (Manual) 0.5 L (1.2-5.4) K/mm3 Sodium 133 L (137-145) mmol/L Chloride 96.7 L (98-107) mmol/L Carbon Dioxide 18 L (22-30) mmol/L BUN 79 H (7-17) mg/dL Creatinine 4.7 H (0.7-1.2) mg/dL Glucose 246 H (65-100) mg/dL POC Glucose 329 H (70-105) Calcium 7.4 L (8.4-10.2) mg/dL Albumin 2.7 L (3.9-5) g/dL Hepatitis C Antibody (NonReactive) 05/23/17 Range/Units 08:11 RBC (3.65-5.03) M/mm3 Hgb (10.1-14.3) gm/dl Hct (30.3-42.9) % MCV (79-97) fl MCH (28-32) pg RDW (13.2-15.2) % Seg Neuts % (Manual) (40.0-70.0) % Lymphocytes % (Manual) (13.4-35.0) % Lymphocytes # (Manual) (1.2-5.4) K/mm3 Sodium (137-145) mmol/L Chloride (98-107) mmol/L Carbon Dioxide (22-30) mmol/L BUN (7-17) mg/dL Creatinine (0.7-1.2) mg/dL Glucose (65-100) mg/dL POC Glucose 242 H (70-105) Calcium (8.4-10.2) mg/dL Albumin (3.9-5) g/dL Hepatitis C Antibody (NonReactive)
[2017-05-23] MEDS: PEPCID PO SCH (09:31)
[2017-05-23] MEDS: NEURONTIN PO SCH (09:31)
[2017-05-23] MEDS: NOVOLOG SUB-Q SCH ×3 (09:31→17:38)
[2017-05-23] MEDS: NORVASC PO SCH (09:32)
[2017-05-23] MEDS: SODIUM BICARBONATE PO SCH (09:32)
[2017-05-23] MEDS: DITROPAN PO SCH (09:32)
[2017-05-23] MEDS: NACL 0.45% 1000 ML 1,000 ML IV SCH (09:33)
[2017-05-23] MEDS: APRESOLINE PO SCH ×2 (09:39→17:38)
[2017-05-23] MEDS: ZITHROMAX PO SCH (09:39)
--- NOTE | 2017-05-23 14:43 | Consultation ---
History of Present Illness - Reason for Consult Consult date: 05/23/17 - History of Present Illness This patient is a 66-year-old female was admitted via the emergency room due to progressive shortness of breath. The patient also has a history of progressive bilateral lower extremity swelling. A vascular surgery consult has been requested to evaluate for possible underlying peripheral vascular disease. Patient states that she's had a long history of lower extremity swelling. Previously having a venous ablation many years ago. She states the chronic SOB and lower ext swelling are considerably worse recently. She was evaluated for venous disease in our office. She does not complain of difficulty healing wounds or claudicating symptoms. She does complain of lower ext cramping at rest. Past History Past Medical History: arthritis, COPD, diabetes, hypertension Past Surgical History: hernia repair, Other (Left Knee replacement. Bilat lower ext "vein stripping") Social history: , lives with family. denies: smoking (quit smoking ~23 yrs ago), alcohol abuse, prescription drug abuse Family history: diabetes, hypertension Medications and Allergies Allergies Allergy/AdvReac Type Severity Reaction Status Date / Time Penicillins Allergy Rash Verified 05/20/17 12:07 Home Medications Medication Instructions Recorded Confirmed Last Taken Type Gabapentin [Neurontin] 300 mg PO BID 01/24/17 05/20/17 Unknown History Glimepiride [Amaryl] 1 mg PO QAM 01/24/17 05/20/17 Unknown History Oxybutynin [Ditropan] 5 mg PO BID 01/24/17 05/20/17 Unknown History traMADol [Ultram 50 MG tab] 50 mg PO Q4HR PRN 01/24/17 05/20/17 Unknown History HYDROcodone/APAP 7.5-325 [[place] 1 each PO Q6HR PRN #14 tablet 01/26/17 05/20/17 Unknown Rx 7.5-325 mg TAB] Sodium Bicarbonate 1,300 mg PO BID #10 tablet 01/26/17 05/20/17 Unknown Rx amLODIPine [Norvasc] 10 mg PO DAILY #14 tablet 01/26/17 05/20/17 Unknown Rx hydrALAZINE [Apresoline TAB] 50 mg PO Q8H #30 tablet 01/26/17 05/20/17 Unknown Rx Active Meds: Active Medications Acetaminophen (Tylenol) 650 mg PO Q4H PRN PRN Reason: Pain MILD(1-3)/Fever >100.5/[place]LER Acetaminophen/Hydrocodone Bitart ([place] 7.5/325) 1 each PO Q6HR PRN PRN Reason: Pain Last Admin: 05/21/17 22:43 Dose: 1 each Albuterol (Proventil) 2.5 mg IH Q4HRT PRN PRN Reason: Shortness Of Breath Amlodipine Besylate (Norvasc) 10 mg PO DAILY [facility] Last Admin: 05/23/17 09:32 Dose: 10 mg Azithromycin (Zithromax) 500 mg PO QDAY [facility] Last Admin: 05/23/17 09:39 Dose: 500 mg Dextrose (D50w (25gm) Vial) 25 gm IV PRN PRN PRN Reason: Hypoglycemia Enoxaparin Sodium (Lovenox) 30 mg SUB-Q DAILY@2200 [facility] Last Admin: 05/22/17 23:20 Dose: 30 mg Famotidine (Pepcid) 20 mg PO DAILY [facility] Last Admin: 05/23/17 09:31 Dose: 20 mg Gabapentin (Neurontin) 300 mg PO BID [facility] Last Admin: 05/23/17 09:31 Dose: 300 mg Hydralazine HCl (Apresoline) 50 mg PO Q8H [facility] Last Admin: 05/23/17 09:39 Dose: 50 mg Hydralazine HCl (Apresoline) 10 mg IV Q6HR PRN PRN Reason: HTN SYS>155 Last Admin: 05/21/17 05:37 Dose: 10 mg Sodium Chloride (Nacl 0.45% 1000 Ml) 1,000 mls @ 75 mls/hr IV DIRECT [facility] Last Admin: 05/23/17 09:33 Dose: 75 mls/hr Insulin Aspart (Novolog) 0 units SUB-Q ACHS [facility] PRN Reason: Protocol Last Admin: 05/23/17 13:08 Dose: 4 units Methylprednisolone Sodium Succinate (Solu-Medrol) 40 mg IV Q12HR [facility] Last Admin: 05/23/17 09:33 Dose: 40 mg Ondansetron HCl (Zofran) 4 mg IV Q8H PRN PRN Reason: N/V unrelieved by Reglan Oxybutynin Chloride (Ditropan) 5 mg PO BID [facility] Last Admin: 05/23/17 09:32 Dose: 5 mg Sodium Bicarbonate (Sodium Bicarbonate) 1,300 mg PO BID [place] Last Admin: 05/23/17 09:32 Dose: 1,300 mg Review of Systems All systems: negative Exam - Constitutional Vitals: Temp Pulse Resp BP Pulse Ox 98.0 F 68 20 156/68 95 05/23/17 08:47 05/23/17 11:32 05/23/17 11:32 05/23/17 11:32 05/23/17 11:32 General appearance: Present: no acute distress, obese - EENT Eyes: Present: EOM intact - Neck Neck: Present: supple - Respiratory Respiratory effort: normal (unlabored at rest on RA) - Extremities Extremities: no ischemia, normal temperature, abnormal (unable to palpate pedal pulses, but I suspect this is due to the significant swelling.) Extremity abnormal: edema (severe bilat lower ext swelling, Pitting), other ( scattered venous varicosities to the Left lower leg. Bilat lower ext hemosiderin deposits.) - Abdominal General gastrointestinal: Present: soft - Psychiatric Psychiatric: appropriate mood/affect, intact judgment & insight, cooperative - Neurologic Neurologic: no focal deficits Results - Labs CBC & Chem 7: 05/23/17 04:16 05/23/17 04:16 Labs: Abnormal lab results 05/22/17 05/22/17 05/23/17 Range/Units 15:46 22:17 04:16 RBC 2.92 L (3.65-5.03) M/mm3 Hgb 6.8 L (10.1-14.3) gm/dl Hct 20.9 L (30.3-42.9) % MCV 72 L (79-97) fl MCH 23 L (28-32) pg RDW 16.2 H (13.2-15.2) % Seg Neuts % (Manual) 85.0 H (40.0-70.0) % Lymphocytes % (Manual) 6.0 L (13.4-35.0) % Lymphocytes # (Manual) 0.5 L (1.2-5.4) K/mm3 Sodium (137-145) mmol/L Chloride (98-107) mmol/L Carbon Dioxide (22-30) mmol/L BUN (7-17) mg/dL Creatinine (0.7-1.2) mg/dL Glucose (65-100) mg/dL POC Glucose 286 H 329 H (70-105) Calcium (8.4-10.2) mg/dL Albumin (3.9-5) g/dL 05/23/17 05/23/17 Range/Units 04:16 08:11 RBC (3.65-5.03) M/mm3 Hgb (10.1-14.3) gm/dl Hct (30.3-42.9) % MCV (79-97) fl MCH (28-32) pg RDW (13.2-15.2) % Seg Neuts % (Manual) (40.0-70.0) % Lymphocytes % (Manual) (13.4-35.0) % Lymphocytes # (Manual) (1.2-5.4) K/mm3 Sodium 133 L (137-145) mmol/L Chloride 96.7 L (98-107) mmol/L Carbon Dioxide 18 L (22-30) mmol/L BUN 79 H (7-17) mg/dL Creatinine 4.7 H (0.7-1.2) mg/dL Glucose 246 H (65-100) mg/dL POC Glucose 242 H (70-105) Calcium 7.4 L (8.4-10.2) mg/dL Albumin 2.7 L (3.9-5) g/dL Assessment and Plan Pt presented with progressive SOB and bilat lower ext swelling. Her outpt w/u was reportedly significant for underlying venous dz. However, suspect her acute symptoms are related to an exacerbation of her CHF. Her BNP is >3000. Recommend lower ext elevation and could consider compression hose as tolerated, although this may make her SOB worse. Her symptoms do not sound to be arterial in nature, but will check an arterial duplex since I could not palpated pedal pulses. Barring significant findings on the arterial exam, would not recommend vascular surgery intervention at present. Agree with medical optimization (including treatment of underlying renal failure and CHF) as this will likely improve her lower ext symptoms. If she continues to have lower ext symptoms following medical optimization then could consider venous intervention as an outpt. Will see again as needed. - Patient Problems (1) Venous (peripheral) insufficiency Current Visit: Yes Status: Acute (2) Acute exacerbation of CHF (congestive heart failure) Current Visit: Yes Status: Acute (3) Acute on chronic renal failure Current Visit: Yes Status: Acute (4) Shortness of breath Current Visit: Yes Status: Acute (5) Diabetes Current Visit: No Status: Acute (6) HTN (hypertension) Current Visit: Yes Status: Acute
[2017-05-23 16:10] LABS: Fractional Sodium Excretion 0.9
[2017-05-23 16:11] LABS: Bacteria,Urine 1+ /HPF (Negative); Bilirubin,Urine NEG (Negative); Blood,Urine NEG (Negative); Ketones,Urine NEG (Negative); Leukocyte Esterase,Urine NEG (Negative); Nitrite,Urine NEG (Negative); Urobilinogen,Urine < 2.0 mg/dL (<2.0)
[2017-05-23 16:12] LABS: Protein,Urine >500 mg/dL (Negative)
[2017-05-24] MEDS: NACL 0.45% 1000 ML 1,000 ML IV SCH ×2 (00:25→23:48)
[2017-05-24] MEDS: LOVENOX SUB-Q SCH ×2 (00:45→21:55)
[2017-05-24] MEDS: SODIUM BICARBONATE PO SCH ×3 (00:46→21:55)
[2017-05-24] MEDS: NEURONTIN PO SCH ×3 (00:47→21:55)
[2017-05-24] MEDS: NOVOLOG SUB-Q SCH ×5 (00:48→22:58)
[2017-05-24] MEDS: DITROPAN PO SCH ×3 (00:48→21:55)
[2017-05-24] MEDS: APRESOLINE PO SCH ×2 (08:01→15:34)
[2017-05-24 08:04] LABS: Basophils % (Auto) 0.1 % (0.0-1.8); Hematocrit 23.6 % (30.3-42.9); Hemoglobin 7.3 gm/dl (10.1-14.3); Mean Corpuscular HGB Conc 31 % (30-34); Mean Corpuscular Volume 74 fl (79-97); Platelet Count 250 K/mm3 (140-440); Red Blood Count 3.19 M/mm3 (3.65-5.03); Red Cell Distribution Width 16.2 % (13.2-15.2); White Blood Count 7.8 K/mm3 (4.5-11.0)
[2017-05-24 08:12] LABS: Mean Corpuscular Hemoglobin 23 pg (28-32)
[2017-05-24 08:29] LABS: Albumin 2.7 g/dL (3.9-5); Albumin/Globulin Ratio 0.5 %; Bilirubin,Total 0.2 mg/dL (0.1-1.2); Calcium 7.3 mg/dL (8.4-10.2); Chloride 100.2 mmol/L (98-107); Potassium 4.5 mmol/L (3.6-5.0); Total Protein 7.7 g/dL (6.3-8.2)
--- NOTE | 2017-05-24 08:56 | Progress Note ---
Assessment and Plan - Patient Problems (1) ARF (acute renal failure) Current Visit: Yes Status: Acute Plan to address problem: Acute on chronic renal failure 100 changes. Creatinine from baseline, we'll continue to monitor cautious hydration. (2) Accelerated hypertension Current Visit: Yes Status: Acute Plan to address problem: I just current blood pressure medications for better optimal control (3) Acute exacerbation of CHF (congestive heart failure) Current Visit: Yes Status: Acute Plan to address problem: On IV Lasix will continue monitor renal function closely (4) Acute respiratory failure Current Visit: Yes Status: Acute Plan to address problem: Chronic shortness of breath of multifactorial etiology CHF regurgitation also has COPD exacerbation continue aerosol treatment, O2 supplementation on diuresis as ordered Subjective Date of service: 05/24/17 Principal diagnosis: Acute respiratory failure, COPD exercenation Acute on CKD stage 4, DB Interval history: No new complaints .Shortness of breath has improved ,no fever ,patient up in bed eating breakfast , no new complaints Objective - Constitutional Vitals: Vital Signs - 12hr 05/23/17 05/24/17 05/24/17 23:45 04:07 08:01 Temperature 98.4 F Pulse Rate 68 68 71 Respiratory 18 18 Rate Blood Pressure 152/77 175/77 Blood Pressure [Right] O2 Sat by Pulse 100 98 Oximetry 05/24/17 08:28 Temperature 98.6 F Pulse Rate 71 Respiratory 20 Rate Blood Pressure Blood Pressure 175/78 [Right] O2 Sat by Pulse 96 Oximetry General appearance: Present: no acute distress - EENT Eyes: PERRL - Neck Neck: supple, normal ROM - Respiratory Respiratory effort: normal Respiratory: bilateral: diminished, rales - Cardiovascular Rhythm: regular Heart Sounds: Present: S1 & S2 Extremity abnormal: edema, pulses diminished - Gastrointestinal General gastrointestinal: Present: soft, non-tender, non-distended, normal bowel sounds Rectal Exam: deferred - Integumentary Integumentary: warm, dry, rash - Musculoskeletal Musculoskeletal: strength equal bilaterally - Neurologic Neurologic: CNII-XII intact - Psychiatric Psychiatric: appropriate mood/affect - Labs CBC & Chem 7: 05/24/17 07:18 05/24/17 07:18 Labs: Abnormal lab results 05/23/17 05/23/17 05/23/17 Range/Units 11:34 15:45 16:00 RBC (3.65-5.03) M/mm3 Hgb (10.1-14.3) gm/dl Hct (30.3-42.9) % MCV (79-97) fl MCH (28-32) pg RDW (13.2-15.2) % Lymph % (Auto) (13.4-35.0) % Lymph # (1.2-5.4) K/mm3 Seg Neutrophils % (40.0-70.0) % Sodium 134 L (137-145) mmol/L Carbon Dioxide (22-30) mmol/L BUN (7-17) mg/dL Creatinine 4.7 H (0.7-1.2) mg/dL Glucose (65-100) mg/dL POC Glucose 318 H (70-105) Calcium (8.4-10.2) mg/dL Albumin (3.9-5) g/dL Urine Creatinine 92.9 H (0.1-20.0) mg/dL 05/23/17 05/23/17 05/24/17 Range/Units 16:02 22:04 07:18 RBC 3.19 L (3.65-5.03) M/mm3 Hgb 7.3 L (10.1-14.3) gm/dl Hct 23.6 L (30.3-42.9) % MCV 74 L (79-97) fl MCH 23 L (28-32) pg RDW 16.2 H (13.2-15.2) % Lymph % (Auto) 9.7 L (13.4-35.0) % Lymph # 0.8 L (1.2-5.4) K/mm3 Seg Neutrophils % 83.4 H (40.0-70.0) % Sodium (137-145) mmol/L Carbon Dioxide (22-30) mmol/L BUN (7-17) mg/dL Creatinine (0.7-1.2) mg/dL Glucose (65-100) mg/dL POC Glucose 227 H 267 H (70-105) Calcium (8.4-10.2) mg/dL Albumin (3.9-5) g/dL Urine Creatinine (0.1-20.0) mg/dL 05/24/17 05/24/17 Range/Units 07:18 07:50 RBC (3.65-5.03) M/mm3 Hgb (10.1-14.3) gm/dl Hct (30.3-42.9) % MCV (79-97) fl MCH (28-32) pg RDW (13.2-15.2) % Lymph % (Auto) (13.4-35.0) % Lymph # (1.2-5.4) K/mm3 Seg Neutrophils % (40.0-70.0) % Sodium (137-145) mmol/L Carbon Dioxide 19 L (22-30) mmol/L BUN 81 H (7-17) mg/dL Creatinine 4.5 H (0.7-1.2) mg/dL Glucose 162 H (65-100) mg/dL POC Glucose 194 H (70-105) Calcium 7.3 L (8.4-10.2) mg/dL Albumin 2.7 L (3.9-5) g/dL Urine Creatinine (0.1-20.0) mg/dL
[2017-05-24] MEDS: ZITHROMAX PO SCH (09:29)
[2017-05-24] MEDS: PEPCID PO SCH (09:29)
[2017-05-24] MEDS: NORVASC PO SCH (09:32)
--- NOTE | 2017-05-24 11:35 | Progress Note ---
Assessment and Plan Impression * Acute on chronic renal failure * Shortness of breath. Most likely secondary to COPD * Hypertension * Diabetes * Anemia * Metabolic acidosis * Hepatitis C Recommendations * Her baseline creatinine seems to be in the mid twos * Her renal function seemed to be stabilizing. Her urine shows 4+ dipstick protein but no blood. Fractional excretion of sodium is 0.9% . She most likely has a prerenal component. She was taking higher dose of Lasix prior to her admission * Continue gentle hydration * awaiting results of Renal ultrasound * Continue gentle hydration * Follow up results of vasculitis workup as well * Avoid nephrotoxins * vascular surgery appreciated Subjective Date of service: 05/24/17 Principal diagnosis: Acute respiratory failure, COPD exercenation Acute on CKD stage 4, DB Interval history: Patient is comfortable today. Shortness of breath is improving. No nausea vomiting or diarrhea Objective - Vital Signs Vital signs: Vital Signs - 12hr 05/23/17 05/24/17 05/24/17 23:45 04:07 08:01 Temperature 98.4 F Pulse Rate 68 68 71 Respiratory 18 18 Rate Blood Pressure 152/77 175/77 Blood Pressure [Right] O2 Sat by Pulse 100 98 Oximetry 05/24/17 05/24/17 08:28 09:32 Temperature 98.6 F Pulse Rate 71 70 Respiratory 20 Rate Blood Pressure 165/72 Blood Pressure 175/78 [Right] O2 Sat by Pulse 96 Oximetry - General Appearance General appearance: well-developed, well-nourished, appears stated age, obese EENT: PERRL, mucous membranes moist Neck: no JVD, no thyromegaly, no carotid bruit, supple Respiratory: Present: Clear to Ascultation Cardiology: regular, normal heart rate Gastrointestinal: normal, normoactive bowel sounds Integumentary: other (chronic skin changes noted in both lower extremities) - Lab 05/24/17 07:18 05/24/17 07:18 Most recent lab results Calcium 7.3 mg/dL (8.4-10.2) L 05/24/17 07:18 Urine Creatinine 92.9 mg/dL (0.1-20.0) H 05/23/17 15:45 Urine Sodium 23 mmol/L 05/23/17 15:45
[2017-05-24] MEDS: NORCO 7.5/325 PO PRN (15:34)
--- NOTE | 2017-05-24 16:04 | Ultrasound Report ---
ULTRASOUND RENAL INDICATION: RACHEAL. COMPARISON: 01/25/2017. FINDINGS: Renal sonography technically limited due to bowel gas with poor renal visualization and assessment. No gross hydronephrosis. Echogenic imaged liver. RIGHT KIDNEY measures 11.3 x 4.2 x 4.5 cm with cortical thickness of 0.9 cm. LEFT KIDNEY estimated at 10.2 x 5.3 x 5 cm with cortical thickness of 1.4 cm. URINARY BLADDER grossly unremarkable, in so far seen. CONCLUSION: Limited exam with poor renal visualization/assessment and few incidental findings as fatty liver, as above. Please correlate. Thank you for the opportunity to participate in this patient's care.
--- NOTE | 2017-05-24 16:47 | Vascular Lab Report ---
LOWER EXTREMITY ARTERIAL DUPLEX: REASON FOR EXAM: Peripheral arterial disease. COMMENTS ON THE RIGHT: Biphasic waveforms are seen proximally. Monophasic waveforms are seen distally. No significant velocity gradients are identified. No focal significant plaque is identified. Findings are consistent with normal perfusion. Findings are consistent with the ability to heal distal wounds. COMMENTS ON THE LEFT: Biphasic waveforms are seen proximally. Monophasic waveforms are seen distally. No significant velocity gradients are identified. No focal significant plaque is identified. Findings are consistent with normal perfusion. Findings are consistent with the ability to heal distal wounds. IMPRESSION: RIGHT: Essentially normal arterial flow. LEFT:Essentially normal arterial flow.
--- NOTE | 2017-05-24 16:49 | Vascular Lab Report ---
LOWER EXTREMITY ARTERIAL PHYSIOLOGIC STUDY: REASON FOR EXAM: Peripheral arterial disease. COMMENTS ON THE RIGHT: Ankle brachial index is not obtained due a vessel incompressibility. This value is abnormal. Toe brachial index is 0.65. This value is normal. Wound healing is likely. Pulse volume recording at the level of the ankle is normal. Exercise testing was not done. COMMENTS ON THE LEFT: Ankle brachial index is not obtained due to vessel incompressibility. This value is of normal. Toe brachial index is 0.58. This value is slightly abnormal. Wound healing is likely. Pulse volume recording at the level of the ankle is normal. Exercise testing was not done. IMPRESSION: RIGHT: Calcified nonocclusive peripheral vascular disease LEFT:Calcified nonocclusive peripheral vascular disease
[2017-05-25] MEDS: APRESOLINE PO SCH ×4 (00:36→17:40)
[2017-05-25 05:04] LABS: Calcium 7.3 mg/dL (8.4-10.2); Chloride 95.2 mmol/L (98-107); Potassium 4.8 mmol/L (3.6-5.0)
--- NOTE | 2017-05-25 08:56 | Progress Note ---
Assessment and Plan - Patient Problems (1) ARF (acute renal failure) Current Visit: Yes Status: Acute Plan to address problem: Acute on chronic renal failure 100 changes. Creatinine from baseline, we'll continue to monitor cautious hydration. (2) Accelerated hypertension Current Visit: Yes Status: Acute Plan to address problem: I just current blood pressure medications for better optimal control (3) Acute exacerbation of CHF (congestive heart failure) Current Visit: Yes Status: Acute Plan to address problem: On IV Lasix will continue monitor renal function closely (4) Acute respiratory failure Current Visit: Yes Status: Acute Plan to address problem: Chronic shortness of breath of multifactorial etiology CHF regurgitation also has COPD exacerbation continue aerosol treatment, O2 supplementation on diuresis as ordered Subjective Date of service: 05/25/17 Principal diagnosis: Acute respiratory failure, COPD exercenation Acute on CKD stage 4, DB Interval history: No new complaints .Shortness of breath has improved ,no fever ,patient up in bed eating breakfast , no new complaints Objective - Constitutional Vitals: Vital Signs - 12hr 05/24/17 05/24/17 05/25/17 22:00 23:08 00:36 Temperature Pulse Rate 67 67 Respiratory 22 18 Rate Blood Pressure 147/65 O2 Sat by Pulse 97 99 Oximetry 05/25/17 05/25/17 05/25/17 04:26 04:27 07:22 Temperature 97.7 F 98.3 F Pulse Rate 65 65 68 Respiratory 20 20 Rate Blood Pressure 165/72 163/69 O2 Sat by Pulse 100 100 97 Oximetry General appearance: Present: no acute distress - Neck Neck: supple, normal ROM - Respiratory Respiratory effort: normal Respiratory: bilateral: diminished - Cardiovascular Rhythm: regular Heart Sounds: Present: S1 & S2 Extremity abnormal: edema - Gastrointestinal General gastrointestinal: Present: non-tender, non-distended, normal bowel sounds Rectal Exam: deferred - Musculoskeletal Musculoskeletal: strength equal bilaterally - Neurologic Neurologic: CNII-XII intact - Psychiatric Psychiatric: appropriate mood/affect - Labs CBC & Chem 7: 05/24/17 07:18 05/25/17 04:14 Labs: Abnormal lab results 05/24/17 05/24/17 05/24/17 Range/Units 11:36 11:43 16:31 Sodium (137-145) mmol/L Chloride (98-107) mmol/L Carbon Dioxide (22-30) mmol/L BUN (7-17) mg/dL Creatinine (0.7-1.2) mg/dL Glucose (65-100) mg/dL POC Glucose 324 H 351 H (70-105) Calcium (8.4-10.2) mg/dL Urine Creatinine 97.2 H (0.1-20.0) mg/dL Urine Total Protein 708 H (5-11.8) mg/dL 05/24/17 05/25/17 05/25/17 Range/Units 21:59 04:14 07:29 Sodium 130 L D (137-145) mmol/L Chloride 95.2 L (98-107) mmol/L Carbon Dioxide 20 L (22-30) mmol/L BUN 88 H (7-17) mg/dL Creatinine 4.4 H (0.7-1.2) mg/dL Glucose 238 H (65-100) mg/dL POC Glucose 272 H 251 H (70-105) Calcium 7.3 L (8.4-10.2) mg/dL Urine Creatinine (0.1-20.0) mg/dL Urine Total Protein (5-11.8) mg/dL
[2017-05-25] MEDS: NOVOLOG SUB-Q SCH ×4 (09:35→22:34)
[2017-05-25] MEDS: ZITHROMAX PO SCH (09:35)
[2017-05-25] MEDS: NEURONTIN PO SCH ×2 (09:36→22:33)
[2017-05-25] MEDS: NORVASC PO SCH (09:36)
[2017-05-25] MEDS: PEPCID PO SCH (09:36)
[2017-05-25] MEDS: SODIUM BICARBONATE PO SCH ×2 (09:37→22:32)
[2017-05-25] MEDS: DITROPAN PO SCH ×2 (09:37→22:33)
--- NOTE | 2017-05-25 10:17 | Progress Note ---
Assessment and Plan Impression * Acute on chronic renal failure * Shortness of breath. Most likely secondary to COPD * Hypertension * Diabetes * Anemia * Metabolic acidosis * Hepatitis C Recommendations * Her baseline creatinine seems to be in the mid twos * Her renal function is stable . Her urine shows 4+ dipstick protein but no blood. Urine protein creatinine ratio is approximately 7.3 g/g. Fractional excretion of sodium is 0.9% . She most likely has a prerenal component. She was taking higher dose of Lasix prior to her admission * Shall discontinue her IV fluids * Renal ultrasound is essentially normal * Check 24-hour urine for creatinine clearance * Follow up results of vasculitis workup as well * Avoid nephrotoxins * vascular surgery appreciated * If her renal function remains stable, okay to discharge patient home with close outpatient follow-up Subjective Date of service: 05/25/17 Principal diagnosis: Acute respiratory failure, COPD exercenation Acute on CKD stage 4, DB Interval history: Patient is comfortable today. Denies any shortness of breath. Complains of having more edema in her legs. Objective - Vital Signs Vital signs: Vital Signs - 12hr 05/24/17 05/25/17 05/25/17 23:08 00:36 04:26 Temperature 97.7 F Pulse Rate 67 67 65 Respiratory 18 20 Rate Blood Pressure 147/65 165/72 O2 Sat by Pulse 99 100 Oximetry 05/25/17 05/25/17 05/25/17 04:27 07:22 09:36 Temperature 98.3 F Pulse Rate 65 68 68 Respiratory 20 Rate Blood Pressure 163/69 163/69 O2 Sat by Pulse 100 97 Oximetry - General Appearance General appearance: well-developed, well-nourished, appears stated age EENT: PERRL, mucous membranes moist Neck: no JVD, no thyromegaly, no carotid bruit, supple Respiratory: Present: Clear to Ascultation Cardiology: regular, normal heart rate Gastrointestinal: normal, normoactive bowel sounds Integumentary: other (1+ edema) - Lab 05/24/17 07:18 05/25/17 04:14 Most recent lab results Calcium 7.3 mg/dL (8.4-10.2) L 05/25/17 04:14 Urine Creatinine 97.2 mg/dL (0.1-20.0) H 05/24/17 11:43 Urine Sodium 23 mmol/L 05/23/17 15:45 Urine Total Protein 708 mg/dL (5-11.8) H 05/24/17 11:43
--- NOTE | 2017-05-25 13:06 | Progress Note ---
Assessment and Plan Reviewed pt arterial duplex. She likely has mild to mod infra-pop arterial dz, but does not have symptoms. Do not recommend intervention at this point. Swelling likely due to co-morbid conditions. She does have underlying venous dz , but would optimize medical conditions 1st prior to additional venous dz. She can f/u in our office as an outpt. Discussed aggressive lower ext elevation and compression therapy (as tolerated) , to improve swelling. She stated understanding and agrees. Will see again as needed. - Patient Problems (1) Venous (peripheral) insufficiency Current Visit: Yes Status: Acute (2) Acute exacerbation of CHF (congestive heart failure) Current Visit: Yes Status: Acute (3) Acute on chronic renal failure Current Visit: Yes Status: Acute (4) Shortness of breath Current Visit: Yes Status: Acute (5) Diabetes Current Visit: No Status: Acute (6) HTN (hypertension) Current Visit: Yes Status: Acute Subjective Date of service: 05/25/17 Principal diagnosis: Acute respiratory failure, COPD exercenation Acute on CKD stage 4, DB Interval history: Pt awake and alert without new complaint. Objective - Constitutional Vitals: Vital Signs - 12hr 05/25/17 05/25/17 05/25/17 04:26 04:27 07:22 Temperature 97.7 F 98.3 F Pulse Rate 65 65 68 Respiratory 20 20 Rate Blood Pressure 165/72 163/69 O2 Sat by Pulse 100 100 97 Oximetry 05/25/17 09:36 Temperature Pulse Rate 68 Respiratory Rate Blood Pressure 163/69 O2 Sat by Pulse Oximetry General appearance: Present: no acute distress - EENT Eyes: EOM intact ENT: hearing intact - Neck Neck: supple - Respiratory Respiratory effort: normal Extremities: no ischemia, normal temperature Extremity abnormal: edema (significant bilat lower ext swelling, unchanged since previous exam) - Neurologic Neurologic: no focal deficits - Psychiatric Psychiatric: appropriate mood/affect, intact judgment & insight, cooperative - Labs CBC & Chem 7: 05/24/17 07:18 05/25/17 04:14 Labs: Abnormal lab results 05/24/17 05/24/17 05/24/17 Range/Units 11:43 16:31 21:59 Sodium (137-145) mmol/L Chloride (98-107) mmol/L Carbon Dioxide (22-30) mmol/L BUN (7-17) mg/dL Creatinine (0.7-1.2) mg/dL Glucose (65-100) mg/dL POC Glucose 351 H 272 H (70-105) Calcium (8.4-10.2) mg/dL Urine Creatinine 97.2 H (0.1-20.0) mg/dL Urine Total Protein 708 H (5-11.8) mg/dL 05/25/17 05/25/17 05/25/17 Range/Units 04:14 07:29 11:26 Sodium 130 L D (137-145) mmol/L Chloride 95.2 L (98-107) mmol/L Carbon Dioxide 20 L (22-30) mmol/L BUN 88 H (7-17) mg/dL Creatinine 4.4 H (0.7-1.2) mg/dL Glucose 238 H (65-100) mg/dL POC Glucose 251 H 265 H (70-105) Calcium 7.3 L (8.4-10.2) mg/dL Urine Creatinine (0.1-20.0) mg/dL Urine Total Protein (5-11.8) mg/dL
[2017-05-25] MEDS: LOVENOX SUB-Q SCH (22:33)
[2017-05-26] MEDS: APRESOLINE IV PRN (00:03)
[2017-05-26] MEDS: APRESOLINE PO SCH ×2 (01:10→09:37)
[2017-05-26 05:25] LABS: Calcium 7.4 mg/dL (8.4-10.2); Chloride 96.6 mmol/L (98-107); Potassium 4.7 mmol/L (3.6-5.0)
[2017-05-26 07:51] VITALS: BP 165/73
--- NOTE | 2017-05-26 09:02 | Discharge Summary ---
Providers - Providers Date of Admission: 05/20/17 16:49 Date of discharge: 05/26/17 Attending physician: MYAH BARAJAS 05/21/17 15:25 Consult to Physician [CONS] Routine Consulting Provider: KENNEDY WERNER Reason For Exam: Renal failure Place consult to:: adriana Notified:: PLEASE CALL MD IN AM Was contact made?: No 05/23/17 09:52 Consult to Physician [CONS] Routine Consulting Provider: KRISTEN HIGUERA Reason For Exam: Peripheral arterial disease Place consult to:: KRISTEN HOLLIS Notified:: KRISTEN HOLLIS Phone number called:: [phone] Was contact made?: Yes If yes, spoke with:: SEFERINO Time called:: 11:13 Comment:: NIMO Primary care physician: BROADCAST OPERATIONS DIRECTOR Hospitalization Reason for admission: exacerbation of COPD, acute on chronic congestive heart failure, acute on c Condition: Stable Pertinent studies: Chest x-ray showing bilateral congestion Hospital course: 66-year-old female admitted via the emergency room on account of worsening shortness of breath at home patient has also experienced increasing swelling especially in the lower extremity, difficulty with ambulation and also orthopnea. Patient denied any chest pain, has history of COPD and has had previous hospitalization, for exacerbation of COPD and also has history of congestive heart failure. Initial evaluation showed patient's x-ray showing bilateral congestion and moderate hypoxia patient was placed on oxygen supplementation was also placed on IV thyroid as well as diuretic IV, consultation was made with web operations manager due to deterioration in renal function noted on the admission electrolytes. Patient lower extremity also showed poor peripheral pulses with dusky discoloration of the lower extremity patient was evaluated by vascular surgery and evaluation shows lower extremity vascular venous insufficiency and moderate peripheral arterial disease with a plan to follow up as outpatient. Nephrology evaluation included workup for vasculitis as well as 24-hour urine collection to evaluate renal status. Urinalysis confirmed nephrotic range proteinuria, serial renal function evaluation did not show any further deterioration in renal function during hospitalization with creatinine around 4 , her baseline creatinine as outpatient was 2.0. Patient has improved significantly over the last 2 days less short of breath and lower extremity edema has subsided significantly and O2 saturation has been in the mid 90s off oxygen. Patient is assessed to be stable enough to be discharged home to follow-up with Dr. Jara and Dr. Werner web operations manager as outpatient and also to follow with also primary care physician at [facility] Patient was discharged on tapered dose of prednisone, oral Lasix at 40 mg daily and to follow up as outpatient in the next 2 weeks. Disposition: DC-30 STILL A PATIENT - Discharge Diagnoses (1) ARF (acute renal failure) Status: Acute (2) Accelerated hypertension Status: Acute (3) Acute exacerbation of CHF (congestive heart failure) Status: Acute (4) Acute respiratory failure Status: Acute Core Measure Documentation - Palliative Care Palliative Care/ Comfort Measures: Not Applicable - Core Measures Any of the following diagnoses?: none Exam - Physical Exam Narrative exam: GENERAL: Patient not in acute distress, mildly pale but not jaundiced, moderately obese HEENT: Mucous membrane is moist, normocephalic pharynx is clear with no exudate or hemorrhage NECK: [No JVD, no thyroid enlargement and no lymphadenopathy.] CHEST/LUNGS: [Good air exchange bilaterally, no wheeze, no rales and no rhonchi. ] [No chest wall tenderness, percussion is normal, symmetrical chest wall.] HEART/CARDIOVASCULAR: [Regular rate and rhythm, S1 and S2 only, no murmur.] ABDOMEN: [Abdomen is soft, nondistended, no guarding, no rebound tenderness, no masses palpable per abdomen, active bowel sounds.] SKIN: [Warm and dry, no rash.] NEURO: [Awake, alert, oriented x3, speech normal. Power 5/5 in all the extremities.] EXTREMITIES: +1 bilateral pitting edema, bilateral stasis dermatitis.] - Constitutional Vitals: Temp Pulse Resp BP Pulse Ox 98.4 F 69 20 165/73 98 05/26/17 07:40 05/26/17 07:40 05/26/17 07:40 05/26/17 07:40 05/26/17 07:40 Plan Activity: no restrictions Weight Bearing Status: Full Weight Bearing Diet: renal, low carbohydrate Follow up with: PRIMARY MD YANELIS [Primary Care Provider] - 3-5 Days TERESA MEEKS MD [Staff Physician] - 7 Days Forms: Accompanied Note Prescriptions: Furosemide [Lasix TAB] 40 mg PO QDAY #30 tablet Prednisone [predniSONE 10 mg (6-Day Pack, 21 Tabs)] 10 mg PO .TAPER #1 tab.ds.pk
[2017-05-26] MEDS: NOVOLOG SUB-Q SCH (09:23)
[2017-05-26] MEDS: DITROPAN PO SCH (09:24)
[2017-05-26] MEDS: NORVASC PO SCH (09:24)
[2017-05-26] MEDS: SODIUM BICARBONATE PO SCH (09:25)
[2017-05-26] MEDS: PEPCID PO SCH (09:25)
[2017-05-26] MEDS: ZITHROMAX PO SCH (09:25)
[2017-05-26] MEDS: NEURONTIN PO SCH (09:25)
--- NOTE | 2017-05-26 10:08 | Progress Note ---
Assessment and Plan Impression * Acute on chronic renal failure * Shortness of breath. Most likely secondary to COPD * Hypertension * Diabetes * Anemia * Metabolic acidosis * Hepatitis C Recommendations * Her baseline creatinine seems to be in the mid twos * Her renal function is slowly improving . Her urine shows 4+ dipstick protein but no blood. Urine protein creatinine ratio is approximately 7.3 g/g. Fractional excretion of sodium is 0.9% . She most likely has a prerenal component. She was taking higher dose of Lasix prior to her admission * She is getting edematous. Would recommend resuming Lasix 40 mg by mouth daily or equivalent * Renal ultrasound is essentially normal * 24-hour urine collection for creatinine clearance ongoing * Follow up results of vasculitis workup as well * Avoid nephrotoxins * Plans for discharge noted. Follow-up appointment made with Dr. Muse next Monday on 03/29/2017 at 11 AM at our [place] office. Patient advised Subjective Date of service: 05/26/17 Principal diagnosis: Acute respiratory failure, COPD exercenation Acute on CKD stage 4, DB Interval history: Patient is comfortable this morning. Denies any shortness of breath. However does complain of some swelling in her legs Objective - Vital Signs Vital signs: Vital Signs - 12hr 05/25/17 05/26/17 05/26/17 23:49 00:03 01:10 Temperature Pulse Rate 72 68 70 Respiratory 20 Rate Blood Pressure 174/68 150/82 O2 Sat by Pulse 100 Oximetry 05/26/17 05/26/17 05/26/17 04:06 07:40 09:24 Temperature 97.6 F 98.4 F Pulse Rate 63 69 69 Respiratory 20 20 Rate Blood Pressure 150/71 165/73 165/73 O2 Sat by Pulse 100 98 Oximetry - General Appearance General appearance: well-developed, well-nourished, appears stated age, other EENT: PERRL, mucous membranes moist Neck: no JVD, no thyromegaly, no carotid bruit, supple Respiratory: Present: Clear to Ascultation Cardiology: regular, normal heart rate, S1S2, no murmurs Gastrointestinal: normal, normoactive bowel sounds, other (PEG tube in place) Integumentary: other (1+ edema) - Lab 05/24/17 07:18 05/26/17 04:59 Most recent lab results Calcium 7.4 mg/dL (8.4-10.2) L 05/26/17 04:59 Urine Creatinine 4.8 mg/dL (0.1-20.0) 05/25/17 23:02 Urine Sodium 23 mmol/L 05/23/17 15:45 Urine Total Protein 708 mg/dL (5-11.8) H 05/24/17 11:43
[2017-06-05 13:25] LABS: Myeloperoxidase Antibody <1.0 AI (<1.0)
[2017-06-05 13:26] LABS: Albumin 2.8 g/dL (3.8-4.8); Gamma Globulin 2.2 g/dL (0.8-1.7)
== END 2017-05-26 12:18 | disposition home health service (06) | DRG 682 ==
LOC: ED 11:57 → 2B-ACE 16:49
PROVIDERS: ADMIT Internal Medicine; ATTEND Family Medicine
PROC: 5A09357 Assistance with Respiratory Ventilation, Less than 24 Consecutive Hours, Continuous Positive Airway Pressure (ICD-10-PCS; principal; 2017-05-21)
PROC: 5A09557 Assistance with Respiratory Ventilation, Greater than 96 Consecutive Hours, Continuous Positive Airway Pressure (ICD-10-PCS; 2017-05-21)
PROC: 3E0234Z Introduction of Serum, Toxoid and Vaccine into Muscle, Percutaneous Approach (ICD-10-PCS; 2017-05-21)
DX: N17.9 Acute kidney failure, unspecified (principal); I50.31 Acute diastolic (congestive) heart failure; J96.00 Acute respiratory failure, unspecified whether with hypoxia or hypercapnia; I13.0 Hypertensive heart and chronic kidney disease with heart failure and stage 1 through stage 4 chronic kidney disease, or unspecified chronic kidney disease; J44.1 Chronic obstructive pulmonary disease with (acute) exacerbation; E87.2 Acidosis; N18.4 Chronic kidney disease, stage 4 (severe); I27.20 Pulmonary hypertension, unspecified; Z88.0 Allergy status to penicillin; Z23 Encounter for immunization; E11.22 Type 2 diabetes mellitus with diabetic chronic kidney disease; Z83.3 Family history of diabetes mellitus; Z82.49 Family history of ischemic heart disease and other diseases of the circulatory system; D64.9 Anemia, unspecified; B19.20 Unspecified viral hepatitis C without hepatic coma
CPT/HCPCS: 36415; 71020; 76770; 80048; 80053; 80061; 80074; 81001; 82140; 82565; 82570; 82575; 82962; 83880; 84156; 84165; 84295; 84300; 84484; 85007; 85025; 86021; 86038; 86160; 86225; 87040; 89050; 90732; 93005; 93010; 93922; 93925; 94640; 94660; 94760; 96365; 96367; 96375; 96376; J0360; J0456; J1650; J1815; J1940; J1956; J2920; J2930; J7050

== ENCOUNTER 2017-08-26 08:55 | Inpatient (IN) | payer MEDICARE ==
[2017-08-26 09:46] LABS: Basophils # (Auto) 0.1 K/mm3 (0.0-0.1); Basophils % (Auto) 0.6 % (0.0-1.8); Eosinophils # (Auto) 0.1 K/mm3 (0.0-0.4); Eosinophils % (Auto) 0.5 % (0.0-4.3); Lymphocytes # (Auto) 0.7 K/mm3 (1.2-5.4); Lymphocytes % (Auto) 5.5 % (13.4-35.0); Mean Corpuscular HGB Conc 32 % (30-34); Monocytes # (Auto) 0.9 K/mm3 (0.0-0.8); Monocytes % (Auto) 6.9 % (0.0-7.3); Platelet Count 235 K/mm3 (140-440); Red Blood Count 2.55 M/mm3 (3.65-5.03)
--- NOTE | 2017-08-26 10:02 | XRay Report ---
Single view chest: Compared to 05/20/17. History: Shortness of breath. Findings: Cardiomegaly. Trachea is midline. Pulmonary venous congestion bilaterally be more pronounced in the lower lobes. Normal CP angles. Impression: Probable early CHF.
[2017-08-26 10:05] LABS: Calcium 7.8 mg/dL (8.4-10.2)
[2017-08-26 10:06] LABS: Hematocrit 17.1 % (30.3-42.9); Hemoglobin 5.4 gm/dl (10.1-14.3)
[2017-08-26 10:07] LABS: Mean Corpuscular Hemoglobin 21 pg (28-32); Mean Corpuscular Volume 67 fl (79-97)
[2017-08-26 10:29] LABS: Chol/HDL Ratio 2.52 %
--- NOTE | 2017-08-26 10:42 | Emergency Department Report ---
ED Shortness of Breath HPI - General Chief Complaint: Dyspnea/Respdistress Stated Complaint: DIFFICULTY BREATHING Time Seen by Provider: 08/26/17 09:22 Source: patient, EMS Mode of arrival: Stretcher Limitations: Other - History of Present Illness Initial Comments: 66-year-old female the past medical history of morbid obesity, CHF, COPD, diabetes, sleep apnea, hypertension, and chronic renal insufficiency presents to the hospital complaints of shortness of breath since last night. EMS reports the patient with 80% on home CPAP. Patient received CPAP for transport , nebulized treatment, supplemental oxygen with increase of saturations 94%. Patient denies chest pain. Cough reported without fever. Patient's compliant with her medication. She recently saw her pickling tank operator and had a nebulizer and inhaler as prescribed. 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 fixed income: [place] [employer] - Related Data Home Medications Medication Instructions Recorded Confirmed Last Taken Gabapentin [Neurontin] 300 mg PO BID 01/24/17 05/20/17 Unknown Oxybutynin [Ditropan] 5 mg PO BID 01/24/17 05/20/17 Unknown traMADol [Ultram 50 MG tab] 50 mg PO Q4HR PRN 01/24/17 05/20/17 Unknown Previous Rx's Medication Instructions Recorded Last Taken Type HYDROcodone/APAP 7.5-325 [[place] 1 each PO Q6HR PRN #14 tablet 01/26/17 Unknown Rx 7.5-325 mg TAB] amLODIPine [Norvasc] 10 mg PO DAILY #14 tablet 01/26/17 Unknown Rx hydrALAZINE [Apresoline TAB] 50 mg PO Q8H #30 tablet 01/26/17 Unknown Rx ALBUTEROL NEB's [Proventil 0.083% 2.5 mg IH Q4HRT PRN nebu 05/26/17 Unknown Rx NEBS] Acetaminophen [Acetaminophen TAB] 650 mg PO Q4H PRN tablet 05/26/17 Unknown Rx Famotidine [Pepcid] 20 mg PO DAILY tablet 05/26/17 Unknown Rx Furosemide [Lasix TAB] 40 mg PO QDAY #30 tablet 05/26/17 Unknown Rx Insulin NPH/Regular [NovoLIN 70/30] 12 unit SUB-Q BIDDIAB units 05/26/17 Unknown Rx Prednisone [predniSONE 10 mg 10 mg PO .TAPER #1 tab.ds.pk 05/26/17 Unknown Rx (6-Day Pack, 21 Tabs)] Sodium Bicarbonate 1,300 mg PO BID tablet 05/26/17 Unknown Rx amLODIPine [Norvasc] 10 mg PO DAILY tablet 05/26/17 Unknown Rx Allergies Allergy/AdvReac Type Severity Reaction Status Date / Time Penicillins Allergy Rash Verified 05/20/17 12:07 ED Review of Systems ROS: Stated complaint: DIFFICULTY BREATHING Other details as noted in HPI Comment: All other systems reviewed and negative Other: Constitutional: No fevers chills Eyes: No eye pain visual changes ENT: No ear pain or throat pain Neck: Denies pain Respiratory: As per HPI Cardiovascular: Denies chest pain, palpitations, syncope GI: Denies abdominal pain, nausea, vomiting, diarrhea, : Denies dysuria Musculoskeletal: Denies back pain Skin: Denies rash, lesions, erythema Neurologic: Denies headache, numbness, weakness Psychiatric: Denies suicidal ideation, hallucinations ED Past Medical Hx - Past Medical History Previous Medical History?: Yes Hx Hypertension: Yes Hx Heart Attack/AMI: No Hx Congestive Heart Failure: Yes Hx Diabetes: Yes Hx Renal Disease: Yes Hx Arthritis: Yes Hx COPD: Yes - Surgical History Past Surgical History?: Yes Additional Surgical History: Left knee surgery, Abd hernia repair - Social History Smoking Status: Former Smoker - Medications Home Medications: Home Medications Medication Instructions Recorded Confirmed Last Taken Type Gabapentin [Neurontin] 300 mg PO BID 01/24/17 05/20/17 Unknown History Oxybutynin [Ditropan] 5 mg PO BID 01/24/17 05/20/17 Unknown History traMADol [Ultram 50 MG tab] 50 mg PO Q4HR PRN 01/24/17 05/20/17 Unknown History HYDROcodone/APAP 7.5-325 [[place] 1 each PO Q6HR PRN #14 tablet 01/26/17 05/20/17 Unknown Rx 7.5-325 mg TAB] amLODIPine [Norvasc] 10 mg PO DAILY #14 tablet 01/26/17 05/20/17 Unknown Rx hydrALAZINE [Apresoline TAB] 50 mg PO Q8H #30 tablet 01/26/17 05/20/17 Unknown Rx ALBUTEROL NEB's [Proventil 0.083% 2.5 mg IH Q4HRT PRN nebu 05/26/17 Unknown Rx NEBS] Acetaminophen [Acetaminophen TAB] 650 mg PO Q4H PRN tablet 05/26/17 Unknown Rx Famotidine [Pepcid] 20 mg PO DAILY tablet 05/26/17 Unknown Rx Furosemide [Lasix TAB] 40 mg PO QDAY #30 tablet 05/26/17 Unknown Rx Insulin NPH/Regular [NovoLIN 70/30] 12 unit SUB-Q BIDDIAB units 05/26/17 Unknown Rx Prednisone [predniSONE 10 mg 10 mg PO .TAPER #1 tab.ds.pk 05/26/17 Unknown Rx (6-Day Pack, 21 Tabs)] Sodium Bicarbonate 1,300 mg PO BID tablet 05/26/17 Unknown Rx amLODIPine [Norvasc] 10 mg PO DAILY tablet 05/26/17 Unknown Rx ED Physical Exam - General Limitations: Other - Other Other exam information: General: Currently on BiPAP Head exam: Atraumatic, normocephalic Eyes exam: Normal appearance ENT: Moist mucous membrane, normal oropharynx Neck exam: Normal inspection, full range of motion, no meningismus nontender Respiratory exam: Diminished breath sounds bilaterally, no rales Cardiovascular: Regular rate and rhythm Abdomen: Soft, nondistended, and nontender, with normal bowel sounds, no rebound, or guarding Extremity: Full range of motion, 1+ pitting lower extremity edema Back: Normal Inspection, full range of motion, no tenderness Neurologic: Alert, oriented x3, cranial nerves intact, no motor or sensory deficit Psychiatric: normal affect, normal mood Skin: Warm, dry, intact ED Course Vital Signs 08/26/17 08/26/17 08/26/17 09:02 09:04 09:06 Temperature Pulse Rate 92 H 93 H Respiratory 16 26 H Rate Blood Pressure 154/54 O2 Sat by Pulse 100 100 Oximetry 08/26/17 08/26/17 08/26/17 09:08 09:10 09:12 Temperature 98 F Pulse Rate 89 97 H 92 H Respiratory 18 20 24 Rate Blood Pressure 154/54 154/54 154/54 O2 Sat by Pulse 100 100 100 Oximetry 08/26/17 08/26/17 08/26/17 09:14 09:16 09:18 Temperature Pulse Rate 89 89 89 Respiratory 25 H 24 16 Rate Blood Pressure 154/54 160/57 160/57 O2 Sat by Pulse 100 100 100 Oximetry 08/26/17 08/26/1718 09:20 09:22 09:24 Temperature Pulse Rate 86 88 88 Respiratory 20 35 H 18 Rate Blood Pressure 160/57 160/57 160/57 O2 Sat by Pulse 100 100 100 Oximetry 08/26/17 08/26/17 08/26/17 09:26 09:28 09:30 Temperature Pulse Rate 89 88 87 Respiratory 22 19 21 Rate Blood Pressure 160/57 160/57 162/70 O2 Sat by Pulse 100 100 100 Oximetry 08/26/17 08/26/17 08/26/17 09:32 09:46 09:59 Temperature Pulse Rate 86 84 Respiratory 19 18 18 Rate Blood Pressure 162/70 173/74 O2 Sat by Pulse 100 100 100 Oximetry 08/26/17 08/26/17 08/26/17 10:00 10:15 10:30 Temperature Pulse Rate 83 82 83 Respiratory 18 17 15 Rate Blood Pressure 165/67 164/58 164/57 O2 Sat by Pulse 100 100 100 Oximetry 08/26/17 08/26/17 10:45 10:53 Temperature Pulse Rate 79 84 Respiratory 14 20 Rate Blood Pressure 153/53 153/53 O2 Sat by Pulse 100 100 Oximetry ED Medical Decision Making - Lab Data Result diagrams: 08/26/17 09:17 08/26/17 09:17 Lab Results 08/26/17 08/26/17 08/26/17 Range/Units 09:17 09:17 09:17 WBC 13.5 H (4.5-11.0) K/mm3 RBC 2.55 L (3.65-5.03) M/mm3 Hgb 5.4 L* (10.1-14.3) gm/dl Hct 17.1 L* (30.3-42.9) % MCV 67 L (79-97) fl MCH 21 L (28-32) pg MCHC 32 (30-34) % RDW 19.0 H (13.2-15.2) % Plt Count 235 (140-440) K/mm3 Lymph % (Auto) 5.5 L (13.4-35.0) % [place] % (Auto) 6.9 (0.0-7.3) % Eos % (Auto) 0.5 (0.0-4.3) % Baso % (Auto) 0.6 (0.0-1.8) % Lymph # 0.7 L (1.2-5.4) K/mm3 [place] # 0.9 H (0.0-0.8) K/mm3 Eos # 0.1 (0.0-0.4) K/mm3 Baso # 0.1 (0.0-0.1) K/mm3 Seg Neutrophils % 86.5 H (40.0-70.0) % Seg Neutrophils # 11.6 H (1.8-7.7) K/mm3 Sodium 141 (137-145) mmol/L Potassium 5.0 (3.6-5.0) mmol/L Chloride 104.0 (98-107) mmol/L Carbon Dioxide 18 L (22-30) mmol/L Anion Gap 24 mmol/L BUN 95 H (7-17) mg/dL Creatinine 6.6 H (0.7-1.2) mg/dL Estimated GFR 8 ml/min BUN/Creatinine Ratio 14 % Glucose 187 H (65-100) mg/dL Calcium 7.8 L (8.4-10.2) mg/dL Total Creatine Kinase (30-135) units/L CK-MB (CK-2) (0.0-4.0) ng/mL CK-MB (CK-2) Rel Index (0-4) Troponin T (0.00-0.029) ng/mL NT-Pro-B Natriuret Pep 23454 H (0-900) pg/mL Triglycerides (2-149) mg/dL Cholesterol (50-199) mg/dL LDL Cholesterol Direct (50-130) mg/dL HDL Cholesterol (40-59) mg/dL Cholesterol/HDL Ratio % Blood Type Crossmatch 08/26/17 08/26/17 Range/Units 09:17 10:35 WBC (4.5-11.0) K/mm3 RBC (3.65-5.03) M/mm3 Hgb (10.1-14.3) gm/dl Hct (30.3-42.9) % MCV (79-97) fl MCH (28-32) pg MCHC (30-34) % RDW (13.2-15.2) % Plt Count (140-440) K/mm3 Lymph % (Auto) (13.4-35.0) % [place] % (Auto) (0.0-7.3) % Eos % (Auto) (0.0-4.3) % Baso % (Auto) (0.0-1.8) % Lymph # (1.2-5.4) K/mm3 [place] # (0.0-0.8) K/mm3 Eos # (0.0-0.4) K/mm3 Baso # (0.0-0.1) K/mm3 Seg Neutrophils % (40.0-70.0) % Seg Neutrophils # (1.8-7.7) K/mm3 Sodium (137-145) mmol/L Potassium (3.6-5.0) mmol/L Chloride (98-107) mmol/L Carbon Dioxide (22-30) mmol/L Anion Gap mmol/L BUN (7-17) mg/dL Creatinine (0.7-1.2) mg/dL Estimated GFR ml/min BUN/Creatinine Ratio % Glucose (65-100) mg/dL Calcium (8.4-10.2) mg/dL Total Creatine Kinase 118 (30-135) units/L CK-MB (CK-2) 2.5 (0.0-4.0) ng/mL CK-MB (CK-2) Rel Index 2.1 (0-4) Troponin T 0.057 H (0.00-0.029) ng/mL NT-Pro-B Natriuret Pep (0-900) pg/mL Triglycerides 79 (2-149) mg/dL Cholesterol 159 (50-199) mg/dL LDL Cholesterol Direct 81 (50-130) mg/dL HDL Cholesterol 63 H (40-59) mg/dL Cholesterol/HDL Ratio 2.52 % Blood Type A POSITIVE Crossmatch See Detail - EKG Data -: EKG Interpreted by Fl EKG shows normal: sinus rhythm, axis (72), QRS complexes (103), ST-T waves (no stemi) Rate: normal (91) - EKG Data When compared to previous EKG there are: no significant change - Radiology Data Radiology results: report reviewed - Medical Decision Making Shortness of breath Likely secondary to CHF exacerbation, symptomatic anemia, and possibly COPD exacerbation Patient on BiPAP support with stabilization of respiratory symptoms Lasix 40 mg IV ordered Acute on chronic renal insufficiency Patient will need renal consultation chronic bun elevation Symptomatic anemia History of chronic anemia Acutely worsened Patient denies melena or hematochezia 2 units PRBC ordered Elevated troponin Likely secondary to chronic renal insufficiency No acute EKGs changes - Differential Diagnosis CHF, COPD, anemia, renal failure, pneumonia, MT Critical Care Time: No Critical care attestation.: If time is entered above; I have spent that time in minutes in the direct care of this critically ill patient, excluding procedure time. ED Disposition Clinical Impression: Diabetes, Acute on chronic renal failure, COPD exacerbation, CHF exacerbation, Microcytic anemia, Sleep apnea, HTN (hypertension), Morbid obesity Disposition: OP ADMIT IP TO THIS HOSP Is pt being admited?: Yes Condition: Stable Time of Disposition: 10:42 (DR Gibbs/hosp)
[2017-08-26 10:46] LABS: Creatine Kinase MB 2.5 ng/mL (0.0-4.0)
[2017-08-26] MEDS ORDERED: NACL 0.9% 500 ML 500 ML IV ONE (11:04)
[2017-08-26] MEDS ORDERED: LASIX IV ONE ×3 (11:04→21:00)
--- NOTE | 2017-08-26 12:33 | Ultrasound Report ---
Renal sonogram: History: Renal failure. Limited study due to patient body habitus. Findings: Right kidney 10.5 x 3.6 x 4.6 cm. Cortical thickness 1.1 cm. Left kidney 10.1-4.9 x 5.3 cm. Cortical thickness 1.4 cm. Impression: Essentially negative renal sonogram.
[2017-08-26] MEDS ORDERED: NACL 0.9% 500 ML 500 ML ONE (14:17)
--- NOTE | 2017-08-26 14:40 | History and Physical Report ---
History of Present Illness Date of examination: 08/26/17 Date of admission: 08/26/17 12:59 Chief complaint: SOB History of present illness: Patient is a 66-year-old woman with a past medical history of Diabetes mellitus with chronic venous leg stasis, penicillin allergy, morbid obesity, CHF, COPD, type 2 diabetes mellitus, obstructive sleep apnea on CPAP, hypertension and chronic renal insufficiency stage 4 who presents to [facility] ED with acute severe constant shortness of breath associated with a nonproductive cough that started last night. There is no aggravating or relieving factors shortness of breath. EMS reports the patient's oxygen saturation was 80% on home CPAP, she was treated with supplement oxygen and saturation increased to 94%. She was placed on BIPAP in ED with success. She is currently on nasal canula. Patient denies any chest pains. Initially, patient appears calm; however, she becomes belligerent and offensive with certain questions. For example; when I asked, who is her President & Founder, she states, "I stopped going to that [employer]". Past medical history: As HPI and also chronic anemia, last hgb was 7.3 on 2016, and last creatinine was 4.2 on 05/26/2017 Past surgical history: Left total knee replacement, 2 ventral hernia surgery repairs, tonsillectomy Social history: stopped smoking and alcohol abuse greater than 25 years ago, with 2 kids; son in [place] and daughter is here Family: Sister has diabetes, hypertension ROS: Constitutional: denies: fever ENT: denies: throat or neck pain Respiratory: + cough, shortness of breath Cardiovascular: denies: chest pain Endocrine: denies unexplained weight loss or gain Gastrointestinal: denies: abdominal pain, nausea Genitourinary: denies: dysuria Rectal: denies no incontinence, no bleeding, no itching, no discharge Musculoskeletal: + swelling, myaglia, muscle weakness Skin: denies: rash Neurological: denies: headache Hematological/Lymphatic: + easy bleeding or easy bruising Allergic/Immunologic: no urticaria, no allergic rhinitis, no anaphylaxis Psych: denies sadness or hopelessness, SI/HI Medications and Allergies Allergies Allergy/AdvReac Type Severity Reaction Status Date / Time Penicillins Allergy Rash Verified 05/20/17 12:07 Home Medications Medication Instructions Recorded Confirmed Last Taken Type Gabapentin [Neurontin] 300 mg PO BID 01/24/17 05/20/17 Unknown History Oxybutynin [Ditropan] 5 mg PO BID 01/24/17 05/20/17 Unknown History traMADol [Ultram 50 MG tab] 50 mg PO Q4HR PRN 01/24/17 05/20/17 Unknown History HYDROcodone/APAP 7.5-325 [[place] 1 each PO Q6HR PRN #14 tablet 01/26/17 05/20/17 Unknown Rx 7.5-325 mg TAB] amLODIPine [Norvasc] 10 mg PO DAILY #14 tablet 01/26/17 05/20/17 Unknown Rx hydrALAZINE [Apresoline TAB] 50 mg PO Q8H #30 tablet 01/26/17 05/20/17 Unknown Rx ALBUTEROL NEB's [Proventil 0.083% 2.5 mg IH Q4HRT PRN nebu 05/26/17 Unknown Rx NEBS] Acetaminophen [Acetaminophen TAB] 650 mg PO Q4H PRN tablet 05/26/17 Unknown Rx Famotidine [Pepcid] 20 mg PO DAILY tablet 05/26/17 Unknown Rx Furosemide [Lasix TAB] 40 mg PO QDAY #30 tablet 05/26/17 Unknown Rx Insulin NPH/Regular [NovoLIN 70/30] 12 unit SUB-Q BIDDIAB units 05/26/17 Unknown Rx Prednisone [predniSONE 10 mg 10 mg PO .TAPER #1 tab.ds.pk 05/26/17 Unknown Rx (6-Day Pack, 21 Tabs)] Sodium Bicarbonate 1,300 mg PO BID tablet 05/26/17 Unknown Rx amLODIPine [Norvasc] 10 mg PO DAILY tablet 05/26/17 Unknown Rx Exam - Physical Exam Narrative exam: GEN: Chronic debilitated, obesity BMI greater than 40 NAD, AWAKE, ALERT, ORIENTATED, patient became belligerent when I asked her the current year, she stated, "what the hell you mean, of coarse I know the current year" HEENT: NCAT, EOMI, PERRL, OP Clear NECK: supple, no adenopathy, no thyromegaly, + JVD CVS/HEART: RRR, NORMAL S1S2, pulses present bilaterally CHEST/LUNGS: bilateral crackles, diminished bs bilaterally, Symmetrical chest expansion, good air entry bilaterally GI/Abdomen: soft, NTND, good bowel sounds, no guarding or rebound /Bladder: no suprapubic tenderness, no CVA or paraspinal tenderness EXT/Skin: +2 ble edema, obvious rash with chronic venous leg stasis MSK: FROM x 4 Neuro: CN 2-12 grossly intact, no new focal deficits Psych: orientated, calm but can become very offensive - Constitutional Vitals: Temp Pulse Resp BP Pulse Ox 98 F 81 18 147/59 99 08/26/17 14:25 08/26/17 14:25 08/26/17 14:25 08/26/17 14:25 08/26/17 14:25 Results - Labs CBC & Chem 7: 08/26/17 09:17 08/26/17 09:17 Labs: Abnormal lab results 08/26/17 08/26/17 08/26/17 Range/Units 09:17 09:17 09:17 WBC 13.5 H (4.5-11.0) K/mm3 RBC 2.55 L (3.65-5.03) M/mm3 Hgb 5.4 L* (10.1-14.3) gm/dl Hct 17.1 L* (30.3-42.9) % MCV 67 L (79-97) fl MCH 21 L (28-32) pg RDW 19.0 H (13.2-15.2) % Lymph % (Auto) 5.5 L (13.4-35.0) % Lymph # 0.7 L (1.2-5.4) K/mm3 [place] # 0.9 H (0.0-0.8) K/mm3 Seg Neutrophils % 86.5 H (40.0-70.0) % Seg Neutrophils # 11.6 H (1.8-7.7) K/mm3 Carbon Dioxide 18 L (22-30) mmol/L BUN 95 H (7-17) mg/dL Creatinine 6.6 H (0.7-1.2) mg/dL Glucose 187 H (65-100) mg/dL Calcium 7.8 L (8.4-10.2) mg/dL Troponin T (0.00-0.029) ng/mL NT-Pro-B Natriuret Pep 66488 H (0-900) pg/mL HDL Cholesterol (40-59) mg/dL Crossmatch 08/26/17 08/26/17 Range/Units 09:17 10:35 WBC (4.5-11.0) K/mm3 RBC (3.65-5.03) M/mm3 Hgb (10.1-14.3) gm/dl Hct (30.3-42.9) % MCV (79-97) fl MCH (28-32) pg RDW (13.2-15.2) % Lymph % (Auto) (13.4-35.0) % Lymph # (1.2-5.4) K/mm3 [place] # (0.0-0.8) K/mm3 Seg Neutrophils % (40.0-70.0) % Seg Neutrophils # (1.8-7.7) K/mm3 Carbon Dioxide (22-30) mmol/L BUN (7-17) mg/dL Creatinine (0.7-1.2) mg/dL Glucose (65-100) mg/dL Calcium (8.4-10.2) mg/dL Troponin T 0.057 H (0.00-0.029) ng/mL NT-Pro-B Natriuret Pep (0-900) pg/mL HDL Cholesterol 63 H (40-59) mg/dL Crossmatch See Detail Assessment and Plan Patient is a 66-year-old woman with a past medical history of chronic venous leg stasis, penicillin allergy, morbid obesity, CHF, COPD, type 2 diabetes mellitus, obstructive sleep apnea on CPAP, hypertension and chronic renal insufficiency stage 4 who presents to [facility] ED with acute severe constant shortness of breath associated with a nonproductive cough that started last night. There is no aggravating or relieving factors shortness of breath. EMS reports the patient's oxygen saturation was 80% on home CPAP, she was treated with supplement oxygen and saturation increased to 94%. She was placed on BIPAP in ED with success. She is currently on nasal canula. Patient denies any chest pains. She denies n/v/fevers/chills/abd pains/rectal bleeding/severe headaches. PMD Dr. Kennedy per patient. Initially, patient appears calm; however, she becomes belligerent and offensive. For example when I ask who her President & Founder is, she states, "I stopped going to the [employer]". Hgb 5.4 pCXR probable early CHF pBNP 15,567 BUN 95 Cr 6.6 Assessement ([employer] EMR had crashed 3 times since doing this h-n-p, hopefully IT can recover my notes): acute respiratory failure acute on chronic chf acute on chronic anemia acute on chronic ckd plan: echo, blood, gi, pulm, cards, renal, CCT 35 mintues
[2017-08-26] MEDS ORDERED: LASIX IV STA (15:41)
--- NOTE | 2017-08-26 15:44 | Consultation ---
History of Present Illness - Reason for Consult Consult date: 08/26/17 acute renal failure - History of Present Illness Mrs. Saint Smith is a 66yo with CKD followed by Dr. Muse who presents to the ED with SOB. She reports a one week history of difficutly breathing w/ ambulating throughout her home. She also reports worsening leg swelling. Mrs. Saint Smith denies chest pain. She reports 3 pillow orthopnea was unchanged. However, overnight, SOB progressively worsened prompting her presentation to the ED. Labs are notable for Hb 5.4 and SCr 6.6. She was recently hospitalized in May 2017. At discharge, her SCr 4.2mg/dL. She has not followed up with nephrology since d/c. Past History Past Medical History: diabetes (Pulmonary hypertension, STEPHEN on CPAP), hypertension, renal failure, other Past Surgical History: No surgical history Social history: no significant social history Medications and Allergies Allergies Allergy/AdvReac Type Severity Reaction Status Date / Time Penicillins Allergy Rash Verified 05/20/17 12:07 Home Medications Medication Instructions Recorded Confirmed Last Taken Type Gabapentin [Neurontin] 300 mg PO BID 01/24/17 05/20/17 Unknown History Oxybutynin [Ditropan] 5 mg PO BID 01/24/17 05/20/17 Unknown History traMADol [Ultram 50 MG tab] 50 mg PO Q4HR PRN 01/24/17 05/20/17 Unknown History HYDROcodone/APAP 7.5-325 [[place] 1 each PO Q6HR PRN #14 tablet 01/26/17 05/20/17 Unknown Rx 7.5-325 mg TAB] amLODIPine [Norvasc] 10 mg PO DAILY #14 tablet 01/26/17 05/20/17 Unknown Rx hydrALAZINE [Apresoline TAB] 50 mg PO Q8H #30 tablet 01/26/17 05/20/17 Unknown Rx ALBUTEROL NEB's [Proventil 0.083% 2.5 mg IH Q4HRT PRN nebu 05/26/17 Unknown Rx NEBS] Acetaminophen [Acetaminophen TAB] 650 mg PO Q4H PRN tablet 05/26/17 Unknown Rx Famotidine [Pepcid] 20 mg PO DAILY tablet 05/26/17 Unknown Rx Furosemide [Lasix TAB] 40 mg PO QDAY #30 tablet 05/26/17 Unknown Rx Insulin NPH/Regular [NovoLIN 70/30] 12 unit SUB-Q BIDDIAB units 05/26/17 Unknown Rx Prednisone [predniSONE 10 mg 10 mg PO .TAPER #1 tab.ds.pk 05/26/17 Unknown Rx (6-Day Pack, 21 Tabs)] Sodium Bicarbonate 1,300 mg PO BID tablet 05/26/17 Unknown Rx amLODIPine [Norvasc] 10 mg PO DAILY tablet 05/26/17 Unknown Rx Active Meds: Active Medications Furosemide (Lasix) 80 mg IV ONCE STA Stop: 08/26/17 15:39 Furosemide (Lasix) 80 mg IV ONCE ONE Stop: 08/26/17 18:01 Review of Systems Constitutional: no fever, no poor appetite Cardiovascular: orthopnea, shortness of breath, leg edema, no chest pain Respiratory: cough, dyspnea on exertion Gastrointestinal: no abdominal pain, no nausea, no vomiting, no BRBPR, no melena Exam - Vital Signs Vital signs: Vital Signs Pulse Ox 100 08/26/17 09:02 - General Appearance General appearance: well-developed, well-nourished, other (conversational dyspnea) EENT: ATNC Respiratory: Wheezes Heart: regular, S1S2 Gastrointestinal: Present: obese. Absent: tenderness, distended Neurologic: no focal deficit Musculoskeletal: Present: other (2+ pitting edema) Psychiatric: cooperative Results - Lab Results 08/26/17 09:17 08/26/17 09:17 Most recent lab results Calcium 7.8 mg/dL (8.4-10.2) L 08/26/17 09:17 Assessment and Plan Impression: * Acute kidney injury secondary to hypoperfusion related to anemia vs progression of CKD to ESRD * Acute hypoxic respiratory failure secondary to pulmonary edema vs pulm HTN * Severe anemia * Hypertension * STEPHEN on CPAP * Pulmonary hypertension * Morbid obesity * Type II DM Plan: * Lengthy discussion with patient re: possibility of dialysis initiation this admission. Renal prognosis is guarded * Patient is s/p pRBC x 1 unit - will give Lasix 80mg IV now * Repeat Lasix 80mg IV after second unit of pRBC * Nur catheter placement as patient becomes significantly SOB with minimal exertion * Renal u/s reviewed * TTE pending * Anemia work up per primary team * Dose medications for renal function * Avoid nephrotoxins * Strict I/O * Restrict fluid to 1 liter/day
--- NOTE | 2017-08-26 16:28 | Consultation ---
History of Present Illness Consult date: 08/26/17 Requesting physician: MEAGAN FERGUSON Reason for consult: dyspnea, hypoxemia, obstructive sleep apnea History of present illness: 66 y/o morbidly obese female, admitted with acute respiratory failure requirng bipap, most likely from volume overload. Per patient wears PPV at night but not sure who manages this. She has never been seen by pulmonary during her prior admission. May belong to [facility] either [facility] or [facility] and they may have been managing the PPV. Renal following as well. Found to be anemic and with BNP of >15k Past History Past Medical History: diabetes (Pulmonary hypertension, STEPHEN on CPAP), hypertension, renal failure, other (STEPHEN and obesity) Past Surgical History: No surgical history Social history: no significant social history Medications and Allergies Allergies Allergy/AdvReac Type Severity Reaction Status Date / Time Penicillins Allergy Rash Verified 05/20/17 12:07 Home Medications Medication Instructions Recorded Confirmed Last Taken Type Gabapentin [Neurontin] 300 mg PO BID 01/24/17 05/20/17 Unknown History Oxybutynin [Ditropan] 5 mg PO BID 01/24/17 05/20/17 Unknown History traMADol [Ultram 50 MG tab] 50 mg PO Q4HR PRN 01/24/17 05/20/17 Unknown History HYDROcodone/APAP 7.5-325 [[place] 1 each PO Q6HR PRN #14 tablet 01/26/17 05/20/17 Unknown Rx 7.5-325 mg TAB] amLODIPine [Norvasc] 10 mg PO DAILY #14 tablet 01/26/17 05/20/17 Unknown Rx hydrALAZINE [Apresoline TAB] 50 mg PO Q8H #30 tablet 01/26/17 05/20/17 Unknown Rx ALBUTEROL NEB's [Proventil 0.083% 2.5 mg IH Q4HRT PRN nebu 05/26/17 Unknown Rx NEBS] Acetaminophen [Acetaminophen TAB] 650 mg PO Q4H PRN tablet 05/26/17 Unknown Rx Famotidine [Pepcid] 20 mg PO DAILY tablet 05/26/17 Unknown Rx Furosemide [Lasix TAB] 40 mg PO QDAY #30 tablet 05/26/17 Unknown Rx Insulin NPH/Regular [NovoLIN 70/30] 12 unit SUB-Q BIDDIAB units 05/26/17 Unknown Rx Prednisone [predniSONE 10 mg 10 mg PO .TAPER #1 tab.ds.pk 05/26/17 Unknown Rx (6-Day Pack, 21 Tabs)] Sodium Bicarbonate 1,300 mg PO BID tablet 05/26/17 Unknown Rx amLODIPine [Norvasc] 10 mg PO DAILY tablet 05/26/17 Unknown Rx Active Meds: Active Medications Furosemide (Lasix) 80 mg IV ONCE ONE Stop: 08/26/17 18:01 Physical Examination Vital signs: Vital Signs Pulse Ox 100 08/26/17 09:02 General appearance: no acute distress, alert, appears uncomfortable Effort: mildly labored Ascultation: Bilateral: rales Percussion: Bilateral: not dull Tactile fremitus: Bilateral: normal Cardiovascular: regular rate and rhythm Gastrointestinal: other (obese) Results - Laboratory Findings CBC and BMP: 08/27/17 08:11 08/27/17 08:11 Abnormal lab findings: Abnormal Labs 08/26/17 08/26/17 08/26/17 09:17 09:17 09:17 WBC 13.5 H RBC 2.55 L Hgb 5.4 L* Hct 17.1 L* MCV 67 L MCH 21 L RDW 19.0 H Lymph % (Auto) 5.5 L Lymph # 0.7 L [place] # 0.9 H Seg Neutrophils % 86.5 H Seg Neutrophils # 11.6 H Carbon Dioxide 18 L BUN 95 H Creatinine 6.6 H Glucose 187 H Calcium 7.8 L Troponin T NT-Pro-B Natriuret Pep [id number] H HDL Cholesterol Crossmatch 08/26/17 08/26/17 09:17 10:35 WBC RBC Hgb Hct MCV MCH RDW Lymph % (Auto) Lymph # [place] # Seg Neutrophils % Seg Neutrophils # Carbon Dioxide BUN Creatinine Glucose Calcium Troponin T 0.057 H NT-Pro-B Natriuret Pep HDL Cholesterol 63 H Crossmatch See Detail - Diagnostic Findings Chest x-ray: image reviewed (cardiomegaly with pulmonary edema) Assessment and Plan 66 y/o female with acute respiratory failure secondary to volume overload and pulmonary edema with symptomatic anemia, ESRD and STEPHEN 1. Continue bipap therapy 2. Volume removal 3. Blood transfusion
[2017-08-26] MEDS ORDERED: TYLENOL PO PRN (21:39)
[2017-08-27 08:24] LABS: Basophils # (Auto) 0.1 K/mm3 (0.0-0.1); Basophils % (Auto) 0.8 % (0.0-1.8); Eosinophils # (Auto) 0.2 K/mm3 (0.0-0.4); Eosinophils % (Auto) 2.4 % (0.0-4.3); Hemoglobin 6.3 gm/dl (10.1-14.3); Lymphocytes # (Auto) 1.8 K/mm3 (1.2-5.4); Mean Corpuscular HGB Conc 33 % (30-34); Monocytes % (Auto) 10.3 % (0.0-7.3); Platelet Count 196 K/mm3 (140-440); Red Blood Count 2.75 M/mm3 (3.65-5.03)
[2017-08-27 08:27] LABS: Mean Corpuscular Hemoglobin 23 pg (28-32); Mean Corpuscular Volume 69 fl (79-97); Red Cell Distribution Width 22.4 % (13.2-15.2)
[2017-08-27 08:37] LABS: Calcium 7.7 mg/dL (8.4-10.2)
--- NOTE | 2017-08-27 09:12 | Progress Note ---
Assessment and Plan Impression: * Acute kidney injury secondary to hypoperfusion related to anemia vs progression of CKD to ESRD * Acute hypoxic respiratory failure secondary to pulmonary edema vs pulm HTN * Severe anemia * Hypertension * STEPHEN on CPAP * Pulmonary hypertension * Morbid obesity * Type II DM Plan: * Renal function unimproved; she is net negative < 1liter; she remains SOB -has conversational dyspnea * Lengthy discussion with patient. I have explained to her the need for initiation of hemodialysis; today, she refuses but states that she will consider it. * Continue Lasix 80mg IV BID * Maintain lira catheter as patient w/ significant dyspnea w/ ambulation * Anemia work up per primary team * Dose medications for renal function * Avoid nephrotoxins * Strict I/O * Restrict fluid to 1 liter/day - patient w/ pitcher of ice at bedside - discussed with RN Subjective Date of service: 08/27/17 Interval history: Patient reports SOB improved Objective - Vital Signs Vital signs: Vital Signs - 12hr 08/26/17 08/26/17 08/26/17 21:37 22:00 22:13 Pulse Rate 74 Pulse Rate [ 78 Apical] Respiratory 20 20 Rate O2 Sat by Pulse 99 100 Oximetry 08/27/17 08:38 Pulse Rate Pulse Rate [ Apical] Respiratory Rate O2 Sat by Pulse 100 Oximetry - General Appearance General appearance: well-developed, well-nourished, obese EENT: ATNC Respiratory: Present: Wheezes Cardiology: regular, S1S2 Gastrointestinal: no tenderness, no distended, obese Integumentary: warm and dry Neurologic: no focal deficit Musculoskeletal: other (+edema) Psychiatric: cooperative - Lab 08/27/17 08:11 08/27/17 08:11 Most recent lab results Calcium 7.7 mg/dL (8.4-10.2) L 08/27/17 08:11
[2017-08-27] MEDS ORDERED: NACL 0.9% 500 ML 500 ML IV ONE (11:36)
--- NOTE | 2017-08-27 11:51 | Progress Note ---
Subjective Date of service: 08/27/17 Interval history: CONSULT DICTATED. NL EF ON ECHO. Hx NEG. STRESS TEST(?) Objective Vital Signs Temp Pulse Pulse Resp BP Pulse Ox 08/27/17 08:38 100 08/27/17 08:33 98.4 F 18 109/64 08/27/17 04:46 97.2 F L 71 22 141/64 98 08/27/17 00:33 100.6 F H 72 18 129/54 99 08/26/17 22:13 20 08/26/17 22:00 78 100 08/26/17 21:37 74 20 99 08/26/17 20:41 98 08/26/17 20:32 91 08/26/17 19:12 82 08/26/17 18:30 99.1 F 78 18 142/53 100 08/26/17 16:19 97.9 F 83 16 155/65 99 08/26/17 16:04 98.0 F 84 18 153/64 100 08/26/17 16:00 84 18 153/64 99 08/26/17 15:05 98 F 84 20 154/55 99 08/26/17 15:00 84 19 154/55 97 08/26/17 14:40 98 F 84 22 146/55 99 08/26/17 14:30 81 19 146/55 97 08/26/17 14:25 98 F 81 18 147/59 99 08/26/17 14:06 90 25 H 156/61 97 - Labs and Meds CBC 08/27/17 Range/Units 08:11 WBC 10.1 (4.5-11.0) K/mm3 RBC 2.75 L (3.65-5.03) M/mm3 Hgb 6.3 L (10.1-14.3) gm/dl Hct 19.0 L* (30.3-42.9) % Plt Count 196 (140-440) K/mm3 Lymph # 1.8 (1.2-5.4) K/mm3 [place] # 1.0 H (0.0-0.8) K/mm3 Eos # 0.2 (0.0-0.4) K/mm3 Baso # 0.1 (0.0-0.1) K/mm3 Comprehensive Metabolic Panel 08/27/17 Range/Units 08:11 Sodium 142 (137-145) mmol/L Potassium 4.6 (3.6-5.0) mmol/L Chloride 104.6 (98-107) mmol/L Carbon Dioxide 18 L (22-30) mmol/L BUN 98 H (7-17) mg/dL Creatinine 6.8 H (0.7-1.2) mg/dL Glucose 79 (65-100) mg/dL Calcium 7.7 L (8.4-10.2) mg/dL
[2017-08-27] MEDS ORDERED: LASIX IV SCH (12:00)
--- NOTE | 2017-08-27 12:41 | Progress Note ---
Assessment and Plan 66 y/o female with acute respiratory failure secondary to volume overload and pulmonary edema with symptomatic anemia, ESRD and STEPHEN 1. Continue bipap therapy at night and PRN 2. Volume removal 3. Blood transfusion Subjective Date of service: 08/27/17 Interval history: Better today. HgB remains low but no evidence of acute bleed. Other vitals are stable Objective Vital Signs - 12hr 08/27/17 08/27/17 08/27/17 04:46 08:33 08:38 Temperature 97.2 F L 98.4 F Pulse Rate 71 Respiratory 22 18 Rate Blood Pressure 141/64 109/64 O2 Sat by Pulse 98 100 Oximetry Constitutional: no acute distress, alert, appears uncomfortable Effort: mildly labored Ascultation: Bilateral: rales Percussion: Bilateral: not dull Tactile fremitus: Bilateral: normal Cardiovascular: regular rate and rhythm Gastrointestinal: other (obese) CBC and BMP: 08/27/17 08:11 08/27/17 08:11 Abnormal lab findings: Abnormal Labs 08/26/17 08/26/17 08/26/17 09:17 09:17 09:17 WBC 13.5 H RBC 2.55 L Hgb 5.4 L* Hct 17.1 L* MCV 67 L MCH 21 L RDW 19.0 H Lymph % (Auto) 5.5 L [place] % (Auto) Lymph # 0.7 L [place] # 0.9 H Seg Neutrophils % 86.5 H Seg Neutrophils # 11.6 H Carbon Dioxide 18 L BUN 95 H Creatinine 6.6 H Glucose 187 H POC Glucose Calcium 7.8 L Troponin T NT-Pro-B Natriuret Pep 87693 H HDL Cholesterol Crossmatch 08/26/17 08/26/17 08/26/17 09:17 10:35 18:35 WBC RBC Hgb Hct MCV MCH RDW Lymph % (Auto) [place] % (Auto) Lymph # [place] # Seg Neutrophils % Seg Neutrophils # Carbon Dioxide BUN Creatinine Glucose POC Glucose 120 H Calcium Troponin T 0.057 H NT-Pro-B Natriuret Pep HDL Cholesterol 63 H Crossmatch See Detail 08/27/17 08/27/17 08:11 08:11 WBC RBC 2.75 L Hgb 6.3 L Hct 19.0 L* MCV 69 L MCH 23 L RDW 22.4 H Lymph % (Auto) [place] % (Auto) 10.3 H Lymph # [place] # 1.0 H Seg Neutrophils % Seg Neutrophils # Carbon Dioxide 18 L BUN 98 H Creatinine 6.8 H Glucose POC Glucose Calcium 7.7 L Troponin T NT-Pro-B Natriuret Pep HDL Cholesterol Crossmatch
--- NOTE | 2017-08-27 13:47 | Consultation ---
HISTORY OF PRESENT ILLNESS: The patient is a 66-year-old female with multiple medical problems including history of diabetes, hypertension, sleep apnea, COPD and congestive heart failure. She did not give any history of arrhythmias or coronary artery disease. She states she thinks she had a negative stress test not long ago. The echocardiogram shows normal left ventricular function done this admission. She states that she tries to limit her fluid intake. She has been short of breath with a nonproductive cough and ankle swelling for the past few days. There has been no chest pain, sputum or fever. She was noted to have hypoxia in the Emergency Room. She has been compliant with medications. She has had worsening renal failure. She also has chronic anemia. The chart describes a history of COPD. PAST HISTORY: MEDICINES: See the nurse's list. ALLERGIES: PENICILLIN. SOCIAL HISTORY: Smoking, prior history of smoking and alcohol abuse years ago. FAMILY HISTORY: Diabetes, hypertension. OPERATIONS: 1. Left total knee. 2. Ventral hernias. 3. Tonsillectomy. REVIEW OF SYSTEMS: She uses CPAP. There are no other complaints or medical problems described. She describes easy bruisability. PHYSICAL EXAMINATION: GENERAL: Markedly overweight, no acute distress. HEENT: Alert, oriented and cooperative. Mental status normal. Ears, nose, and throat remarkable for hirsutism. NECK: Reveals JVD. There are no bruits. Neck is supple, no masses. LUNGS: Clear. No labored respirations. CARDIOVASCULAR: Regular rhythm. Soft S4. No murmurs or rubs. ABDOMEN: Soft, nontender, no masses. EXTREMITIES: No cyanosis, clubbing. There is 1+ pedal edema. Pulses are intact. There are venous stasis changes. NEUROLOGICAL: Symmetrical. SKIN: Clear. Echocardiogram shows normal left ventricular function, no significant valvular heart disease. EKG, nonspecific ST-T changes. IMPRESSION: 1. Volume overload with normal left ventricular function, probably secondary to chronic renal disease, anemia contributing, hypoxia contributing. 2. Acute on chronic diastolic heart failure. 3. Obesity with sleep apnea. 4. Hypertension. 5. Diabetes. 6. Pulmonary hypertension. PLAN: Treat for congestive heart failure/volume overload. Anemia evaluation. Optimize pulmonary therapy, optimize renal failure therapy, consider hemodialysis. Monitor for arrhythmias. We will recommend weight loss. Thank you for this consultation. JOB# [id number] SALMA/JAMIE
[2017-08-27] MEDS ORDERED: NACL 0.9% 500 ML 500 ML ONE (14:17)
--- NOTE | 2017-08-27 14:26 | Progress Note ---
Assessment and Plan Assessment and plan: Patient is a 66-year-old woman with a past medical history of chronic venous leg stasis, penicillin allergy, morbid obesity, CHF, COPD, type 2 diabetes mellitus, obstructive sleep apnea on CPAP, hypertension and chronic renal insufficiency stage 4 who presents [facility] with acute severe constant shortness of breath associated with a nonproductive cough that started last night. There is no aggravating or relieving factors shortness of breath. EMS reports the patient's oxygen saturation was 80% on home CPAP, she was treated with supplement oxygen and saturation increased to 94%. She was placed on BIPAP in ED with success. She is currently on nasal canula. Patient denies any chest pains. She denies n/v/fevers/chills/abd pains/rectal bleeding/severe headaches. PMD Dr. Kennedy per patient. Initially, patient appears calm; however, she becomes belligerent and offensive. For example when I asked, who her Client Relationship Executive is, she states, "I stopped going to the [facility]". Hgb 5.4 pCXR probable early CHF pBNP 15,567 BUN 95 Cr 6.6 -Acute hypoxic respiratory failure due to CHF: will diuresis, triate O2 -ARF to ESRD most likely, needs Hemodialysis but she is refusing at this time: Nephrology is following -Acute on Chronic Diastolic heart failure: Cardiology is following, treat with carefully diuresis -Acute on chronic anemia: will transfuse more blood today, GI is following -BMI 54.6: Low calorie diet Isolated elevated temp last night of 100.6F, get blood cultures, UA if patient allows, she can be verbally abusive. History Interval history: Patient was seen and examined. Follow-up on current diagnosis of sob. Overnight uneventful. Patient denies any chest pain, shortness breath, nausea/ vomiting or severe headaches. Imaging, nursing note, chart, labs and old chart reviewed. Discussed with patient. Hospitalist Physical - Physical exam Narrative exam: GEN: Chronic debilitated, obesity BMI greater than 40 NAD, AWAKE, ALERT, ORIENTATED, patient became belligerent when I asked her the current year, she stated, "what the hell you mean, of coarse I know the current year" HEENT: NCAT, EOMI, PERRL, OP Clear NECK: supple, no adenopathy, no thyromegaly, + JVD CVS/HEART: RRR, NORMAL S1S2, pulses present bilaterally CHEST/LUNGS: bilateral crackles, diminished bs bilaterally, Symmetrical chest expansion, good air entry bilaterally GI/Abdomen: soft, NTND, good bowel sounds, no guarding or rebound /Bladder: no suprapubic tenderness, no CVA or paraspinal tenderness EXT/Skin: +2 ble edema, obvious rash with chronic venous leg stasis MSK: FROM x 4 Neuro: CN 2-12 grossly intact, no new focal deficits Psych: orientated, calm but can become very offensive - Constitutional Vitals: Temp Pulse Resp BP Pulse Ox 97.9 F 79 18 169/75 98 08/27/17 12:38 08/27/17 12:38 08/27/17 12:38 08/27/17 12:38 08/27/17 12:38 Results - Labs CBC & Chem 7: 08/27/17 08:11 08/27/17 08:11 Labs: Laboratory Last Values WBC 10.1 K/mm3 (4.5-11.0) 08/27/17 08:11 RBC 2.75 M/mm3 (3.65-5.03) L 08/27/17 08:11 Hgb 6.3 gm/dl (10.1-14.3) L 08/27/17 08:11 Hct 19.0 % (30.3-42.9) L* 08/27/17 08:11 MCV 69 fl (79-97) L 08/27/17 08:11 MCH 23 pg (28-32) L 08/27/17 08:11 MCHC 33 % (30-34) 08/27/17 08:11 RDW 22.4 % (13.2-15.2) H 08/27/17 08:11 Plt Count 196 K/mm3 (140-440) 08/27/17 08:11 Lymph % (Auto) 18.0 % (13.4-35.0) 08/27/17 08:11 [place] % (Auto) 10.3 % (0.0-7.3) H 08/27/17 08:11 Eos % (Auto) 2.4 % (0.0-4.3) 08/27/17 08:11 Baso % (Auto) 0.8 % (0.0-1.8) 08/27/17 08:11 Lymph # 1.8 K/mm3 (1.2-5.4) 08/27/17 08:11 [place] # 1.0 K/mm3 (0.0-0.8) H 08/27/17 08:11 Eos # 0.2 K/mm3 (0.0-0.4) 08/27/17 08:11 Baso # 0.1 K/mm3 (0.0-0.1) 08/27/17 08:11 Seg Neutrophils % 68.5 % (40.0-70.0) 08/27/17 08:11 Seg Neutrophils # 6.9 K/mm3 (1.8-7.7) 08/27/17 08:11 Sodium 142 mmol/L (137-145) 08/27/17 08:11 Potassium 4.6 mmol/L (3.6-5.0) 08/27/17 08:11 Chloride 104.6 mmol/L (98-107) 08/27/17 08:11 Carbon Dioxide 18 mmol/L (22-30) L 08/27/17 08:11 Anion Gap 24 mmol/L 08/27/17 08:11 BUN 98 mg/dL (7-17) H 08/27/17 08:11 Creatinine 6.8 mg/dL (0.7-1.2) H 08/27/17 08:11 Estimated GFR 7 ml/min 08/27/17 08:11 BUN/Creatinine Ratio 14 % 08/27/17 08:11 Glucose 79 mg/dL (65-100) 08/27/17 08:11 POC Glucose 95 (70-105) 08/27/17 12:09 Calcium 7.7 mg/dL (8.4-10.2) L 08/27/17 08:11 Total Creatine Kinase 118 units/L (30-135) 08/26/17 09:17 CK-MB (CK-2) 2.5 ng/mL (0.0-4.0) 08/26/17 09:17 CK-MB (CK-2) Rel Index 2.1 (0-4) 08/26/17 09:17 Troponin T 0.057 ng/mL (0.00-0.029) H 08/26/17 09:17 NT-Pro-B Natriuret Pep 30612 pg/mL (0-900) H 08/26/17 09:17 Triglycerides 79 mg/dL (2-149) 08/26/17 09:17 Cholesterol 159 mg/dL (50-199) 08/26/17 09:17 LDL Cholesterol Direct 81 mg/dL (50-130) 08/26/17 09:17 HDL Cholesterol 63 mg/dL (40-59) H 08/26/17 09:17 Cholesterol/HDL Ratio 2.52 % 08/26/17 09:17 Blood Type A POSITIVE 08/26/17 10:35 Antibody Screen Negative 08/26/17 10:35 Crossmatch See Detail 08/26/17 10:35
[2017-08-27] MEDS ORDERED: PROVENTIL IH PRN (14:28)
[2017-08-27] MEDS: NORVASC PO SCH (15:52)
[2017-08-27] MEDS: LASIX IV SCH ×2 (15:54→21:44)
[2017-08-27] MEDS: DITROPAN PO SCH (21:40)
[2017-08-27] MEDS: NEURONTIN PO SCH (21:43)
[2017-08-27] MEDS: APRESOLINE PO SCH (21:43)
[2017-08-28] MEDS ORDERED: NORVASC PO SCH (10:00)
--- NOTE | 2017-08-28 10:00 | Progress Note ---
Assessment and Plan Impression: * Acute kidney injury secondary to hypoperfusion related to anemia vs progression of CKD to ESRD * Acute hypoxic respiratory failure secondary to pulmonary edema vs pulm HTN * Severe anemia * Hypertension * STEPHEN on CPAP * Pulmonary hypertension * Morbid obesity * Type II DM Plan: * Today's labs are still pending. She seems to be responding well to large dose IV loop diuretic * Lengthy discussion with patient. I have explained to her the need for initiation of hemodialysis; today, she refuses but states that she will consider it. Patient's daughter also explained the risks of not starting dialysis * Continue Lasix 80mg IV BID * Maintain lira catheter as patient w/ significant dyspnea w/ ambulation * Anemia work up per primary team * Dose medications for renal function * Avoid nephrotoxins * Strict I/O * Restrict fluid to 1 liter/day Subjective Date of service: 09/04/17 Interval history: Patient is awake and alert. States that her shortness of breath is improving. Her daughter is also at bedside. Discussed need for dialysis at length with patient and her daughter. They still continue to refuse dialysis at this time. Objective - Vital Signs Vital signs: Vital Signs - 12hr 08/27/17 08/28/17 08/28/17 22:00 00:56 03:34 Temperature Pulse Rate 75 Pulse Rate [ 80 Apical] Respiratory 20 20 Rate Blood Pressure [Right] O2 Sat by Pulse 100 100 Oximetry 08/28/17 08/28/17 08:25 08:28 Temperature 98.9 F Pulse Rate 79 Pulse Rate [ Apical] Respiratory 24 Rate Blood Pressure 152/68 [Right] O2 Sat by Pulse 99 99 Oximetry - General Appearance General appearance: well-developed, well-nourished, appears stated age, obese EENT: PERRL, mucous membranes moist Neck: no JVD, no thyromegaly, no carotid bruit, supple Respiratory: Present: Rales (fine basal crackles) Cardiology: regular, normal heart rate, S1S2, no murmurs Gastrointestinal: normal, normoactive bowel sounds Integumentary: other (1- 2+ pitting edema) - Lab 08/27/17 08:11 08/27/17 08:11 Most recent lab results Calcium 7.7 mg/dL (8.4-10.2) L 08/27/17 08:11
[2017-08-28] MEDS: NORVASC PO SCH (10:48)
[2017-08-28] MEDS: NEURONTIN PO SCH ×2 (10:48→21:41)
[2017-08-28] MEDS: DITROPAN PO SCH ×2 (10:49→21:41)
[2017-08-28] MEDS: APRESOLINE PO SCH ×2 (10:49→21:42)
[2017-08-28] MEDS: PEPCID PO SCH (10:49)
[2017-08-28] MEDS: LASIX IV SCH ×2 (10:49→21:41)
--- NOTE | 2017-08-28 12:00 | Progress Note ---
Assessment and Plan Acute respiratory failure Volume overload Symptomatic anemia s/p blood transfusion Chronic renal failure with progression to ESRD pt is considering dialysis STEPHEN Obesity EF 60-65% on echcoardiogram. Subjective Date of service: 08/28/17 Interval history: Patient denies chest pain and shortness of breath. Reports she is feeling better. Objective Vital Signs Temp Pulse Pulse Pulse Resp Resp BP 08/28/17 08:28 98.9 F 79 24 08/28/17 08:25 08/28/17 03:34 75 20 08/28/17 00:56 08/27/17 22:00 80 20 08/27/17 21:43 81 154/68 08/27/17 21:00 75 20 08/27/17 20:45 98.6 F 81 22 154/68 08/27/17 19:15 81 08/27/17 17:35 84 18 08/27/17 17:21 81 18 08/27/17 16:05 991 F H 84 22 193/68 08/27/17 15:52 186/80 08/27/17 15:35 99.1 F 84 22 193/68 08/27/17 15:20 83 22 186/80 08/27/17 15:08 98.6 F 82 22 198/72 08/27/17 14:31 97.9 F 84 18 08/27/17 12:38 97.9 F 79 18 169/75 BP Pulse Ox 08/28/17 08:28 152/68 99 08/28/17 08:25 99 08/28/17 03:34 100 08/28/17 00:56 100 08/27/17 22:00 08/27/17 21:43 08/27/17 21:00 100 08/27/17 20:45 100 08/27/17 19:15 08/27/17 17:35 08/27/17 17:21 08/27/17 16:05 100 08/27/17 15:52 08/27/17 15:35 100 08/27/17 15:20 08/27/17 15:08 94 08/27/17 14:31 193/68 97 08/27/17 12:38 98 - Physical Examination General: No Apparent Distress HEENT: Positive: PERRL Cardiac: Positive: Reg Rate and Rhythm
--- NOTE | 2017-08-28 13:44 | Progress Note ---
Assessment and Plan 66 y/o female with acute respiratory failure secondary to volume overload and pulmonary edema with symptomatic anemia, ESRD and STEPHEN 1. Continue bipap therapy at night and PRN 2. Volume removal 3. Blood transfusion 4. Will need to assess O2 need prior to discharge. Subjective Date of service: 08/28/17 Interval history: No acute events. Tolerating Bipap at night and oxygen requirement now is 2 liters. Objective Vital Signs - 12hr 08/28/17 08/28/17 08/28/17 03:34 08:25 08:28 Temperature 98.9 F Pulse Rate 75 79 Respiratory 20 24 Rate Blood Pressure 152/68 [Right] O2 Sat by Pulse 100 99 99 Oximetry 08/28/17 10:00 Temperature Pulse Rate 79 Respiratory 24 Rate Blood Pressure [Right] O2 Sat by Pulse 97 Oximetry Constitutional: no acute distress, alert, appears uncomfortable Effort: mildly labored Ascultation: Bilateral: rales Percussion: Bilateral: not dull Tactile fremitus: Bilateral: normal Cardiovascular: regular rate and rhythm Gastrointestinal: other (obese) CBC and BMP: 08/27/17 08:11 08/27/17 08:11 Abnormal lab findings: Abnormal Labs 08/26/17 08/26/17 08/26/17 09:17 09:17 09:17 WBC 13.5 H RBC 2.55 L Hgb 5.4 L* Hct 17.1 L* MCV 67 L MCH 21 L RDW 19.0 H Lymph % (Auto) 5.5 L [place] % (Auto) Lymph # 0.7 L [place] # 0.9 H Seg Neutrophils % 86.5 H Seg Neutrophils # 11.6 H Carbon Dioxide 18 L BUN 95 H Creatinine 6.6 H Glucose 187 H POC Glucose Calcium 7.8 L Troponin T NT-Pro-B Natriuret Pep 34231 H HDL Cholesterol Crossmatch 08/26/17 08/26/17 08/26/17 09:17 10:35 18:35 WBC RBC Hgb Hct MCV MCH RDW Lymph % (Auto) [place] % (Auto) Lymph # [place] # Seg Neutrophils % Seg Neutrophils # Carbon Dioxide BUN Creatinine Glucose POC Glucose 120 H Calcium Troponin T 0.057 H NT-Pro-B Natriuret Pep HDL Cholesterol 63 H Crossmatch See Detail 08/27/17 08/27/17 08/27/17 08:11 08:11 21:28 WBC RBC 2.75 L Hgb 6.3 L Hct 19.0 L* MCV 69 L MCH 23 L RDW 22.4 H Lymph % (Auto) [place] % (Auto) 10.3 H Lymph # [place] # 1.0 H Seg Neutrophils % Seg Neutrophils # Carbon Dioxide 18 L BUN 98 H Creatinine 6.8 H Glucose POC Glucose 202 H Calcium 7.7 L Troponin T NT-Pro-B Natriuret Pep HDL Cholesterol Crossmatch 08/28/17 08:27 WBC RBC Hgb Hct MCV MCH RDW Lymph % (Auto) [place] % (Auto) Lymph # [place] # Seg Neutrophils % Seg Neutrophils # Carbon Dioxide BUN Creatinine Glucose POC Glucose 113 H Calcium Troponin T NT-Pro-B Natriuret Pep HDL Cholesterol Crossmatch
--- NOTE | 2017-08-28 14:56 | Progress Note ---
Assessment and Plan Assessment and plan: Patient is a 66-year-old woman with a past medical history of chronic venous leg stasis, penicillin allergy, morbid obesity, CHF, COPD, type 2 diabetes mellitus, obstructive sleep apnea on CPAP, hypertension and chronic renal insufficiency stage 4 who presents to [facility] ED with acute severe constant shortness of breath associated with a nonproductive cough that started last night. There is no aggravating or relieving factors shortness of breath. EMS reports the patient's oxygen saturation was 80% on home CPAP, she was treated with supplement oxygen and saturation increased to 94%. She was placed on BIPAP in ED with success. She is currently on nasal canula. Patient denies any chest pains. She denies n/v/fevers/chills/abd pains/rectal bleeding/severe headaches. PMD Dr. Kennedy per patient. Initially, patient appears calm; however, she becomes belligerent and offensive. For example when I asked, who her Armor Officer is, she states, "I stopped going to the [facility]". Hgb 5.4 pCXR probable early CHF pBNP 15,567 BUN 95 Cr 6.6 -Acute hypoxic respiratory failure due to CHF: will diuresis, triate O2 -ARF to ESRD most likely, needs Hemodialysis but she is refusing at this time: Nephrology is following -Acute on Chronic Diastolic heart failure: Cardiology is following, treat with carefully diuresis -Acute on chronic anemia: will transfuse more blood today, GI is following -BMI 54.6: Low calorie diet 08/27/17: Isolated elevated temp last night of 100.6F, get blood cultures, UA if patient allows, she can be verbally abusive. 08/28/17: d/w daughter Shyla Donald at bedside. Also, Dr. Ludwig at bedside, re- iterated the need for hemodialysis, patient refuses, Also, unable to get blood this am, and she refuses to allow another attempt. blood culture pending History Interval history: Patient was seen and examined. Follow-up on current diagnosis of sob. Overnight uneventful. Patient denies any chest pain, shortness breath, nausea/ vomiting or severe headaches. Imaging, nursing note, chart, labs and old chart reviewed. Discussed with patient. Hospitalist Physical - Physical exam Narrative exam: GEN: Chronic debilitated, obesity BMI greater than 40 NAD, AWAKE, ALERT, ORIENTATED, patient became belligerent when I asked her the current year, she stated, "what the hell you mean, of coarse I know the current year" HEENT: NCAT, EOMI, PERRL, OP Clear NECK: supple, no adenopathy, no thyromegaly, + JVD CVS/HEART: RRR, NORMAL S1S2, pulses present bilaterally CHEST/LUNGS: bilateral crackles, diminished bs bilaterally, Symmetrical chest expansion, good air entry bilaterally GI/Abdomen: soft, NTND, good bowel sounds, no guarding or rebound /Bladder: no suprapubic tenderness, no CVA or paraspinal tenderness EXT/Skin: +2 ble edema, obvious rash with chronic venous leg stasis MSK: FROM x 4 Neuro: CN 2-12 grossly intact, no new focal deficits Psych: orientated, calm but can become very offensive - Constitutional Vitals: Temp Pulse Resp BP Pulse Ox 98.9 F 79 24 152/68 97 08/28/17 08:28 08/28/17 10:00 08/28/17 10:00 08/28/17 08:28 08/28/17 10:00 Results - Labs CBC & Chem 7: 08/27/17 08:11 08/27/17 08:11 Labs: Laboratory Last Values WBC 10.1 K/mm3 (4.5-11.0) 08/27/17 08:11 RBC 2.75 M/mm3 (3.65-5.03) L 08/27/17 08:11 Hgb 6.3 gm/dl (10.1-14.3) L 08/27/17 08:11 Hct 19.0 % (30.3-42.9) L* 08/27/17 08:11 MCV 69 fl (79-97) L 08/27/17 08:11 MCH 23 pg (28-32) L 08/27/17 08:11 MCHC 33 % (30-34) 08/27/17 08:11 RDW 22.4 % (13.2-15.2) H 08/27/17 08:11 Plt Count 196 K/mm3 (140-440) 08/27/17 08:11 Lymph % (Auto) 18.0 % (13.4-35.0) 08/27/17 08:11 [place] % (Auto) 10.3 % (0.0-7.3) H 08/27/17 08:11 Eos % (Auto) 2.4 % (0.0-4.3) 08/27/17 08:11 Baso % (Auto) 0.8 % (0.0-1.8) 08/27/17 08:11 Lymph # 1.8 K/mm3 (1.2-5.4) 08/27/17 08:11 [place] # 1.0 K/mm3 (0.0-0.8) H 08/27/17 08:11 Eos # 0.2 K/mm3 (0.0-0.4) 08/27/17 08:11 Baso # 0.1 K/mm3 (0.0-0.1) 08/27/17 08:11 Seg Neutrophils % 68.5 % (40.0-70.0) 08/27/17 08:11 Seg Neutrophils # 6.9 K/mm3 (1.8-7.7) 08/27/17 08:11 Sodium 142 mmol/L (137-145) 08/27/17 08:11 Potassium 4.6 mmol/L (3.6-5.0) 08/27/17 08:11 Chloride 104.6 mmol/L (98-107) 08/27/17 08:11 Carbon Dioxide 18 mmol/L (22-30) L 08/27/17 08:11 Anion Gap 24 mmol/L 08/27/17 08:11 BUN 98 mg/dL (7-17) H 08/27/17 08:11 Creatinine 6.8 mg/dL (0.7-1.2) H 08/27/17 08:11 Estimated GFR 7 ml/min 08/27/17 08:11 BUN/Creatinine Ratio 14 % 08/27/17 08:11 Glucose 79 mg/dL (65-100) 08/27/17 08:11 POC Glucose 113 (70-105) H 08/28/17 08:27 Calcium 7.7 mg/dL (8.4-10.2) L 08/27/17 08:11 Total Creatine Kinase 118 units/L (30-135) 08/26/17 09:17 CK-MB (CK-2) 2.5 ng/mL (0.0-4.0) 08/26/17 09:17 CK-MB (CK-2) Rel Index 2.1 (0-4) 08/26/17 09:17 Troponin T 0.057 ng/mL (0.00-0.029) H 08/26/17 09:17 NT-Pro-B Natriuret Pep 69631 pg/mL (0-900) H 08/26/17 09:17 Triglycerides 79 mg/dL (2-149) 08/26/17 09:17 Cholesterol 159 mg/dL (50-199) 08/26/17 09:17 LDL Cholesterol Direct 81 mg/dL (50-130) 08/26/17 09:17 HDL Cholesterol 63 mg/dL (40-59) H 08/26/17 09:17 Cholesterol/HDL Ratio 2.52 % 08/26/17 09:17 Blood Type A POSITIVE 08/26/17 10:35 Antibody Screen Negative 08/26/17 10:35 Crossmatch See Detail 08/26/17 10:35
[2017-08-28 15:55] LABS: Basophils # (Auto) 0.1 K/mm3 (0.0-0.1); Basophils % (Auto) 0.6 % (0.0-1.8); Eosinophils # (Auto) 0.3 K/mm3 (0.0-0.4); Eosinophils % (Auto) 2.3 % (0.0-4.3); Hematocrit 21.1 % (30.3-42.9); Lymphocytes # (Auto) 1.3 K/mm3 (1.2-5.4); Lymphocytes % (Auto) 11.1 % (13.4-35.0); Mean Corpuscular HGB Conc 33 % (30-34); Mean Corpuscular Volume 72 fl (79-97); Monocytes # (Auto) 1.3 K/mm3 (0.0-0.8); Monocytes % (Auto) 10.6 % (0.0-7.3); Platelet Count 196 K/mm3 (140-440); Red Blood Count 2.92 M/mm3 (3.65-5.03)
[2017-08-28 16:01] LABS: Mean Corpuscular Hemoglobin 24 pg (28-32)
[2017-08-28 16:10] LABS: Calcium 7.7 mg/dL (8.4-10.2)
[2017-08-29 07:10] LABS: Basophils # (Auto) 0.1 K/mm3 (0.0-0.1); Basophils % (Auto) 0.6 % (0.0-1.8); Eosinophils # (Auto) 0.2 K/mm3 (0.0-0.4); Eosinophils % (Auto) 2.2 % (0.0-4.3); Hematocrit 20.6 % (30.3-42.9); Hemoglobin 6.4 gm/dl (10.1-14.3); Lymphocytes # (Auto) 1.6 K/mm3 (1.2-5.4); Lymphocytes % (Auto) 14.2 % (13.4-35.0); Mean Corpuscular HGB Conc 31 % (30-34); Mean Corpuscular Volume 74 fl (79-97); Monocytes # (Auto) 1.4 K/mm3 (0.0-0.8); Monocytes % (Auto) 12.1 % (0.0-7.3); Platelet Count 201 K/mm3 (140-440); Red Blood Count 2.79 M/mm3 (3.65-5.03)
[2017-08-29 07:11] LABS: Mean Corpuscular Hemoglobin 23 pg (28-32); Red Cell Distribution Width 24.5 % (13.2-15.2)
[2017-08-29 08:00] LABS: Calcium 7.6 mg/dL (8.4-10.2)
[2017-08-29] MEDS ORDERED: VANCOMYCIN/NS 1 GM/250 ML 1 GM/250 ML BAG IV NR (09:00)
[2017-08-29] MEDS ORDERED: VANCOMYCIN/0.45 NS 1 GM/250 ML 1 GM/250 ML BAG IV SCH (09:00)
--- NOTE | 2017-08-29 09:16 | Progress Note ---
Assessment and Plan Impression: * Acute on chronic renal failure with progression to ESRD * Acute hypoxic respiratory failure secondary to pulmonary edema vs pulm HTN * Severe anemia * Hypertension * STEPHEN on CPAP * Pulmonary hypertension * Morbid obesity * Type II DM Plan: * BUN/creatinine continues to rise . * She is responding to large dose loop diuretic. However still volume overloaded. Need to initiate renal replacement therapy. She is agreeable to that. * Discussed with vascular surgery for PermCath placement today. Initiate dialysis after access placement * Continue Lasix 80mg IV BID for now * Maintain lira catheter as patient w/ significant dyspnea w/ ambulation * Anemia work up per primary team. Consider packed RBC transfusion * Dose medications for renal function * Avoid nephrotoxins * Strict I/O * Restrict fluid to 1 liter/day * Consult case management for outpatient dialysis arrangements Subjective Date of service: 08/29/17 Interval history: Patient seems to have agreed to start dialysis. She is currently NPO . Shortness of breath is improving. Denies any nausea or vomiting Objective - Vital Signs Vital signs: Vital Signs - 12hr 08/28/17 08/28/17 08/28/17 21:39 21:42 21:50 Temperature 99.8 F H Pulse Rate 74 Pulse Rate [ Apical] Respiratory Rate Blood Pressure 141/54 O2 Sat by Pulse 100 Oximetry 08/28/17 08/28/17 08/28/17 22:00 22:07 23:48 Temperature 99.2 F Pulse Rate 78 72 Pulse Rate [ 72 Apical] Respiratory 20 20 24 Rate Blood Pressure 145/53 O2 Sat by Pulse 100 100 Oximetry 08/29/17 08/29/17 08/29/17 02:59 04:31 07:48 Temperature 98.5 F 99.4 F Pulse Rate 80 73 73 Pulse Rate [ Apical] Respiratory 24 24 20 Rate Blood Pressure 135/51 127/51 O2 Sat by Pulse 100 93 98 Oximetry 08/29/17 09:08 Temperature Pulse Rate Pulse Rate [ Apical] Respiratory Rate Blood Pressure O2 Sat by Pulse 99 Oximetry - General Appearance General appearance: well-developed, well-nourished, appears stated age, obese EENT: PERRL, mucous membranes moist Neck: no JVD, no thyromegaly, no carotid bruit, supple Respiratory: Present: Clear to Ascultation Cardiology: regular, normal heart rate, S1S2, no murmurs Gastrointestinal: normal, normoactive bowel sounds Integumentary: no rash, other (1+ edema) - Lab 08/29/17 06:41 08/29/17 06:41 Most recent lab results Calcium 7.6 mg/dL (8.4-10.2) L 08/29/17 06:41
[2017-08-29] MEDS ORDERED: NACL 0.9% 100 ML IV PRN ×2 (09:30→13:12)
[2017-08-29] MEDS: APRESOLINE PO SCH ×3 (10:00→22:53)
[2017-08-29] MEDS: DITROPAN PO SCH ×3 (10:00→22:53)
[2017-08-29] MEDS: LASIX IV SCH ×2 (10:00→22:53)
[2017-08-29] MEDS: PEPCID PO SCH ×2 (10:00→18:01)
[2017-08-29] MEDS: NEURONTIN PO SCH ×3 (10:00→22:53)
[2017-08-29] MEDS: NORVASC PO SCH ×2 (10:00→18:01)
--- NOTE | 2017-08-29 10:07 | Progress Note ---
Assessment and Plan Acute respiratory failure Volume overload Symptomatic anemia s/p blood transfusion Chronic renal failure with progression to ESRD for planned permacath placement and to initiate dialysis today STEPHEN Obesity EF 60-65% on echcoardiogram. Recommendations: Consider GI evaluation for her anemia. Otherwise conservative cardiac management. Subjective Date of service: 08/29/17 Interval history: Patient denies chest pain and shortness of breath. Planned for PermCath placement today with initiation of dialysis after access placement. Noted H&H trending downwards. Objective Vital Signs Temp Pulse Pulse Resp BP BP Pulse Ox 08/29/17 09:08 99 08/29/17 07:48 99.4 F 73 20 127/51 98 08/29/17 04:31 98.5 F 73 24 135/51 93 08/29/17 02:59 80 24 100 08/28/17 23:48 99.2 F 72 24 145/53 100 08/28/17 22:07 78 20 100 08/28/17 22:00 72 20 08/28/17 21:50 100 08/28/17 21:42 74 141/54 08/28/17 21:39 99.8 F H 08/28/17 19:57 100.4 F H 76 20 141/54 98 08/28/17 19:41 75 08/28/17 19:00 99.5 F 78 22 150/84 98 08/28/17 12:00 98.4 F 80 22 138/80 - Physical Examination General: No Apparent Distress HEENT: Positive: PERRL Cardiac: Positive: Reg Rate and Rhythm - Labs and Meds CBC 08/28/17 08/29/17 Range/Units 15:38 06:41 WBC 12.0 H 11.2 H (4.5-11.0) K/mm3 RBC 2.92 L 2.79 L (3.65-5.03) M/mm3 Hgb 7.0 L 6.4 L (10.1-14.3) gm/dl Hct 21.1 L 20.6 L (30.3-42.9) % Plt Count 196 201 (140-440) K/mm3 Lymph # 1.3 1.6 (1.2-5.4) K/mm3 [place] # 1.3 H 1.4 H (0.0-0.8) K/mm3 Eos # 0.3 0.2 (0.0-0.4) K/mm3 Baso # 0.1 0.1 (0.0-0.1) K/mm3 Comprehensive Metabolic Panel 08/28/17 08/29/17 Range/Units 15:31 06:41 Sodium 143 143 (137-145) mmol/L Potassium 4.5 4.4 (3.6-5.0) mmol/L Chloride 104.2 105.1 (98-107) mmol/L Carbon Dioxide 19 L 19 L (22-30) mmol/L BUN 106 H 107 H (7-17) mg/dL Creatinine 7.1 H 7.2 H (0.7-1.2) mg/dL Glucose 146 H 102 H (65-100) mg/dL Calcium 7.7 L 7.6 L (8.4-10.2) mg/dL
[2017-08-29] MEDS ORDERED: HEPARIN/NS 5000 UNIT/500ML(CATH LAB) 500 ML IR ONE (11:06)
[2017-08-29] MEDS ORDERED: VERSED ONE (11:06)
[2017-08-29] MEDS ORDERED: XYLOCAINE 2% INFILTRATI ONE (11:06)
[2017-08-29] MEDS ORDERED: SUBLIMAZE ONE (11:06)
[2017-08-29] MEDS ORDERED: NACL 0.9% 250ML 250 ML ONE (11:06)
[2017-08-29] MEDS ORDERED: NACL 0.9% 100 ML ONE (11:08)
[2017-08-29] MEDS: HEPARIN 10,000 UNITS/10 ML ONE ×2 (11:35→11:37)
--- NOTE | 2017-08-29 12:50 | Progress Note ---
Assessment and Plan 66 y/o female with acute respiratory failure secondary to volume overload and pulmonary edema with symptomatic anemia, ESRD and STEPHEN 1. Continue bipap therapy at night and PRN. Patient still does not know who manages her STEPHEN. We have never seen her before 2. Volume removal, now HD per renal 3. Blood transfusion 4. Will need to assess O2 need prior to discharge. Subjective Date of service: 08/29/17 Interval history: No acute events. Agree to HD per renal note. Dyspnea improving. Down to 3 liters Objective Vital Signs - 12hr 08/29/17 08/29/17 08/29/17 02:59 04:31 07:48 Temperature 98.5 F 99.4 F Pulse Rate 80 73 73 Respiratory 24 24 20 Rate Blood Pressure 135/51 127/51 O2 Sat by Pulse 100 93 98 Oximetry 08/29/17 08/29/17 09:08 10:00 Temperature Pulse Rate 76 Respiratory Rate Blood Pressure O2 Sat by Pulse 99 96 Oximetry Constitutional: no acute distress, alert, appears uncomfortable Effort: mildly labored Ascultation: Bilateral: rales Percussion: Bilateral: not dull Tactile fremitus: Bilateral: normal Cardiovascular: regular rate and rhythm Gastrointestinal: other (obese) CBC and BMP: 08/29/17 06:41 08/29/17 06:41 Abnormal lab findings: Abnormal Labs 08/26/17 08/26/17 08/26/17 09:17 09:17 09:17 WBC 13.5 H RBC 2.55 L Hgb 5.4 L* Hct 17.1 L* MCV 67 L MCH 21 L RDW 19.0 H Lymph % (Auto) 5.5 L [place] % (Auto) Lymph # 0.7 L [place] # 0.9 H Seg Neutrophils % 86.5 H Seg Neutrophils # 11.6 H Carbon Dioxide 18 L BUN 95 H Creatinine 6.6 H Glucose 187 H POC Glucose Calcium 7.8 L Troponin T NT-Pro-B Natriuret Pep 24645 H HDL Cholesterol Crossmatch 08/26/17 08/26/17 08/26/17 09:17 10:35 18:35 WBC RBC Hgb Hct MCV MCH RDW Lymph % (Auto) [place] % (Auto) Lymph # [place] # Seg Neutrophils % Seg Neutrophils # Carbon Dioxide BUN Creatinine Glucose POC Glucose 120 H Calcium Troponin T 0.057 H NT-Pro-B Natriuret Pep HDL Cholesterol 63 H Crossmatch See Detail 08/27/17 08/27/17 08/27/17 08:11 08:11 21:28 WBC RBC 2.75 L Hgb 6.3 L Hct 19.0 L* MCV 69 L MCH 23 L RDW 22.4 H Lymph % (Auto) [place] % (Auto) 10.3 H Lymph # [place] # 1.0 H Seg Neutrophils % Seg Neutrophils # Carbon Dioxide 18 L BUN 98 H Creatinine 6.8 H Glucose POC Glucose 202 H Calcium 7.7 L Troponin T NT-Pro-B Natriuret Pep HDL Cholesterol Crossmatch 08/28/17 08/28/17 08/28/17 08:27 15:31 15:38 WBC 12.0 H RBC 2.92 L Hgb 7.0 L Hct 21.1 L MCV 72 L MCH 24 L RDW 24.0 H Lymph % (Auto) 11.1 L [place] % (Auto) 10.6 H Lymph # [place] # 1.3 H Seg Neutrophils % 75.4 H Seg Neutrophils # 9.1 H Carbon Dioxide 19 L BUN 106 H Creatinine 7.1 H Glucose 146 H POC Glucose 113 H Calcium 7.7 L Troponin T NT-Pro-B Natriuret Pep HDL Cholesterol Crossmatch 08/28/17 08/29/17 08/29/17 21:24 06:33 06:41 WBC 11.2 H RBC 2.79 L Hgb 6.4 L Hct 20.6 L MCV 74 L MCH 23 L RDW 24.5 H Lymph % (Auto) [place] % (Auto) 12.1 H Lymph # [place] # 1.4 H Seg Neutrophils % 70.9 H Seg Neutrophils # 7.9 H Carbon Dioxide BUN Creatinine Glucose POC Glucose 152 H 111 H Calcium Troponin T NT-Pro-B Natriuret Pep HDL Cholesterol Crossmatch 08/29/17 06:41 WBC RBC Hgb Hct MCV MCH RDW Lymph % (Auto) [place] % (Auto) Lymph # [place] # Seg Neutrophils % Seg Neutrophils # Carbon Dioxide 19 L BUN 107 H Creatinine 7.2 H Glucose 102 H POC Glucose Calcium 7.6 L Troponin T NT-Pro-B Natriuret Pep HDL Cholesterol Crossmatch
[2017-08-29] MEDS ORDERED: NACL 0.9% 500 ML 500 ML IV NR (13:13)
--- NOTE | 2017-08-29 13:13 | Progress Note ---
Assessment and Plan Assessment and plan: Acute on chronic renal failure with progression to ESRD. ESRD to intitiate per Nephrology. Vascular surgery for PermCath placement today. Initiate dialysis after access placement. Continue Lasix 80mg IV BID for now Acute hypoxic respiratory failure secondary to pulmonary edema vs pulm HTN Acute on Chronic Diastolic heart failure. Cont HD for volume control. Cards following Severe anemia. Cont. F/U h and h and transfuse prn Hypertension. Cont antihypertensive meds STEPHEN on CPAP Pulmonary hypertension Morbid obesity Type II DM. Accuchecks and SSRI History Interval history: No new issues Hospitalist Physical - Constitutional Vitals: Temp Pulse Resp BP Pulse Ox 99.4 F 76 20 127/51 96 08/29/17 07:48 08/29/17 10:00 08/29/17 07:48 08/29/17 07:48 08/29/17 10:00 General appearance: Present: no acute distress, well-nourished - EENT Eyes: Present: PERRL, EOM intact ENT: hearing intact, clear oral mucosa, dentition normal - Neck Neck: Present: supple, normal ROM - Respiratory Respiratory effort: normal Respiratory: bilateral: rales - Cardiovascular Rhythm: regular Heart Sounds: Present: S1 & S2. Absent: gallop, rub - Extremities Extremities: no ischemia, No edema, Full ROM - Abdominal General gastrointestinal: soft, non-tender, non-distended, normal bowel sounds - Integumentary Integumentary: Present: clear, warm, dry - Neurologic Neurologic: CNII-XII intact, moves all extremities Results - Labs CBC & Chem 7: 08/29/17 06:41 08/29/17 06:41 Labs: Laboratory Last Values WBC 11.2 K/mm3 (4.5-11.0) H 08/29/17 06:41 RBC 2.79 M/mm3 (3.65-5.03) L 08/29/17 06:41 Hgb 6.4 gm/dl (10.1-14.3) L 08/29/17 06:41 Hct 20.6 % (30.3-42.9) L 08/29/17 06:41 MCV 74 fl (79-97) L 08/29/17 06:41 MCH 23 pg (28-32) L 08/29/17 06:41 MCHC 31 % (30-34) 08/29/17 06:41 RDW 24.5 % (13.2-15.2) H 08/29/17 06:41 Plt Count 201 K/mm3 (140-440) 08/29/17 06:41 Lymph % (Auto) 14.2 % (13.4-35.0) 08/29/17 06:41 [place] % (Auto) 12.1 % (0.0-7.3) H 08/29/17 06:41 Eos % (Auto) 2.2 % (0.0-4.3) 08/29/17 06:41 Baso % (Auto) 0.6 % (0.0-1.8) 08/29/17 06:41 Lymph # 1.6 K/mm3 (1.2-5.4) 08/29/17 06:41 [place] # 1.4 K/mm3 (0.0-0.8) H 08/29/17 06:41 Eos # 0.2 K/mm3 (0.0-0.4) 08/29/17 06:41 Baso # 0.1 K/mm3 (0.0-0.1) 08/29/17 06:41 Seg Neutrophils % 70.9 % (40.0-70.0) H 08/29/17 06:41 Seg Neutrophils # 7.9 K/mm3 (1.8-7.7) H 08/29/17 06:41 Sodium 143 mmol/L (137-145) 08/29/17 06:41 Potassium 4.4 mmol/L (3.6-5.0) 08/29/17 06:41 Chloride 105.1 mmol/L (98-107) 08/29/17 06:41 Carbon Dioxide 19 mmol/L (22-30) L 08/29/17 06:41 Anion Gap 23 mmol/L 08/29/17 06:41 BUN 107 mg/dL (7-17) H 08/29/17 06:41 Creatinine 7.2 mg/dL (0.7-1.2) H 08/29/17 06:41 Estimated GFR 7 ml/min 08/29/17 06:41 BUN/Creatinine Ratio 15 % 08/29/17 06:41 Glucose 102 mg/dL (65-100) H 08/29/17 06:41 POC Glucose 111 (70-105) H 08/29/17 06:33 Calcium 7.6 mg/dL (8.4-10.2) L 08/29/17 06:41 Total Creatine Kinase 118 units/L (30-135) 08/26/17 09:17 CK-MB (CK-2) 2.5 ng/mL (0.0-4.0) 08/26/17 09:17 CK-MB (CK-2) Rel Index 2.1 (0-4) 08/26/17 09:17 Troponin T 0.057 ng/mL (0.00-0.029) H 08/26/17 09:17 NT-Pro-B Natriuret Pep 09568 pg/mL (0-900) H 08/26/17 09:17 Triglycerides 79 mg/dL (2-149) 08/26/17 09:17 Cholesterol 159 mg/dL (50-199) 08/26/17 09:17 LDL Cholesterol Direct 81 mg/dL (50-130) 08/26/17 09:17 HDL Cholesterol 63 mg/dL (40-59) H 08/26/17 09:17 Cholesterol/HDL Ratio 2.52 % 08/26/17 09:17 Blood Type A POSITIVE 08/26/17 10:35 Antibody Screen Negative 08/26/17 10:35 Crossmatch See Detail 08/26/17 10:35
[2017-08-29] MEDS ORDERED: NACL 0.9 (PRIMING MACHINE ONLY DIALYSIS) MC ONE (14:21)
[2017-08-29] MEDS: PROCRIT IV PRN (14:28)
--- NOTE | 2017-08-29 14:56 | Operative Report ---
Operative Report Operative Report: Procedure: 1. Right internal jugular tunneled dialysis catheter placement 2. Ultrasound guided puncture of the RIJ vein. Date: 08/29/2017 Physician: Clarence Vivas MD Indication: 66 year old female with end stage renal disease, in need of dialysis. Technique: The patient was placed in the supine position and prepped and draped in the usual sterile fashion. A timeout was performed. Local anesthetic was administered. Under direct ultrasound guidance, the RIJ vein was accessed with a 21-gauge needle. This was exchanged over a mandrel wire for a 4 [place] dilator. Via the exchange dilator, and 035 wire was advanced into the IVC. Attention was then turned to the right chest wall. An appropriate catheter exit site was chosen, and local anesthetic was again administered. A skin gaby was made, and the catheter was tunneled under the skin from the exit site to the venotomy. After serial tissue dilation, the dialysis catheter was advanced through a peel- away sheath, until the tip was in the right atrium. Vacuum aspiration and flushing was performed. Each lumen was instilled with heparin. The catheter was secured to the skin with 2-0 Ethilon suture. The venotomy site was closed with Dermabond. Sterile dressings were placed, and the patient was transported from the procedure area in stable condition. Findings: 1. Ultrasound demonstrates a patent and compressible RIJ vein. 2. There is successful placement of a 27 cm tunneled dialysis catheter via the RIJ vein. 3. Each lumen flushes and aspirates briskly. 4. Positioning of the catheter tip within the right atrium is confirmed by fluoroscopy. The catheter is ready for use.
[2017-08-29] MEDS: HEPARIN IV PRN (16:21)
[2017-08-29] MEDS: NORCO 7.5/325 PO PRN (18:02)
[2017-08-30] MEDS: NORCO 7.5/325 PO PRN (05:22)
[2017-08-30 08:57] LABS: Bacteria,Urine 1+ /HPF (Negative); Bilirubin,Urine NEG (Negative); Blood,Urine SM (Negative); Color,Urine Straw (Yellow); Urobilinogen,Urine < 2.0 mg/dL (<2.0)
--- NOTE | 2017-08-30 09:10 | Progress Note ---
Assessment and Plan Acute respiratory failure Volume overload Symptomatic anemia s/p blood transfusion Chronic renal failure with progression to ESRD for planned permacath placement and to initiate dialysis today STEPHEN Obesity Deconditioned EF 60-65% on echcoardiogram. Recommendations: PT/OT evaluation for deconditioning. Otherwise conservative cardiac management. Subjective Date of service: 08/30/17 Interval history: Patient complains of bilateral lower extremity weakness and pain. Objective Vital Signs Temp Pulse Resp BP BP Pulse Ox 08/30/17 05:34 97.8 F 67 18 140/72 98 08/30/17 00:15 67 21 99 08/29/17 23:15 98.4 F 73 18 138/48 08/29/17 22:53 73 144/50 08/29/17 21:46 99 08/29/17 20:39 99.3 F 73 18 144/50 95 08/29/17 18:53 99.1 F 76 20 146/61 99 08/29/17 18:46 99.0 F 59 L 20 152/54 100 08/29/17 18:02 20 08/29/17 15:57 32.1 F L 75 20 169/68 99 08/29/17 14:35 99.5 F 69 20 184/80 08/29/17 14:28 70 188/77 08/29/17 14:15 70 169/83 08/29/17 14:00 72 179/78 08/29/17 13:45 77 174/86 08/29/17 13:30 77 189/86 08/29/17 13:15 71 177/80 08/29/17 13:00 70 199/71 08/29/17 12:45 75 195/79 08/29/17 12:30 71 176/86 08/29/17 12:26 77 190/84 08/29/17 12:10 98.8 F 75 20 187/96 08/29/17 10:00 76 96 - Physical Examination General: No Apparent Distress HEENT: Positive: PERRL Cardiac: Positive: Reg Rate and Rhythm Lungs: Positive: Decreased Breath Sounds Neuro: Positive: Grossly Intact
--- NOTE | 2017-08-30 10:48 | Progress Note ---
Assessment and Plan Assessment and plan: Acute on chronic renal failure with progression to ESRD. Vascular surgery placed right internal jugular dialysis catheter on 08/29/17. Initiate dialysis after access placement. Continue HD per Nephrology Acute hypoxic respiratory failure secondary to pulmonary edema vs pulm HTN Acute on Chronic Diastolic heart failure. Cont HD for volume control. Cards following Severe anemia. Cont. F/U h and h and transfuse prn Hypertension. Cont antihypertensive meds STEPHEN on CPAP Pulmonary hypertension Morbid obesity Type II DM. Accuchecks and SSRI Deconditioning. PT eval History Interval history: No new issues Hospitalist Physical - Constitutional Vitals: Temp Pulse Resp BP Pulse Ox 98.6 F 67 20 142/61 98 08/30/17 09:12 08/30/17 09:12 08/30/17 09:12 08/30/17 09:12 08/30/17 09:12 General appearance: Present: no acute distress, well-nourished - EENT Eyes: Present: PERRL, EOM intact ENT: hearing intact, clear oral mucosa, dentition normal - Neck Neck: Present: supple, normal ROM - Respiratory Respiratory effort: normal Respiratory: bilateral: CTA - Cardiovascular Rhythm: regular Heart Sounds: Present: S1 & S2. Absent: gallop, rub - Extremities Extremities: no ischemia, No edema, Full ROM - Abdominal General gastrointestinal: soft, non-tender, non-distended, normal bowel sounds - Integumentary Integumentary: Present: clear, warm, dry - Neurologic Neurologic: CNII-XII intact, moves all extremities Results - Labs CBC & Chem 7: 08/29/17 06:41 08/29/17 06:41 Labs: Laboratory Last Values WBC 11.2 K/mm3 (4.5-11.0) H 08/29/17 06:41 RBC 2.79 M/mm3 (3.65-5.03) L 08/29/17 06:41 Hgb 6.4 gm/dl (10.1-14.3) L 08/29/17 06:41 Hct 20.6 % (30.3-42.9) L 08/29/17 06:41 MCV 74 fl (79-97) L 08/29/17 06:41 MCH 23 pg (28-32) L 08/29/17 06:41 MCHC 31 % (30-34) 08/29/17 06:41 RDW 24.5 % (13.2-15.2) H 08/29/17 06:41 Plt Count 201 K/mm3 (140-440) 08/29/17 06:41 Lymph % (Auto) 14.2 % (13.4-35.0) 08/29/17 06:41 [place] % (Auto) 12.1 % (0.0-7.3) H 08/29/17 06:41 Eos % (Auto) 2.2 % (0.0-4.3) 08/29/17 06:41 Baso % (Auto) 0.6 % (0.0-1.8) 08/29/17 06:41 Lymph # 1.6 K/mm3 (1.2-5.4) 08/29/17 06:41 [place] # 1.4 K/mm3 (0.0-0.8) H 08/29/17 06:41 Eos # 0.2 K/mm3 (0.0-0.4) 08/29/17 06:41 Baso # 0.1 K/mm3 (0.0-0.1) 08/29/17 06:41 Seg Neutrophils % 70.9 % (40.0-70.0) H 08/29/17 06:41 Seg Neutrophils # 7.9 K/mm3 (1.8-7.7) H 08/29/17 06:41 Sodium 143 mmol/L (137-145) 08/29/17 06:41 Potassium 4.4 mmol/L (3.6-5.0) 08/29/17 06:41 Chloride 105.1 mmol/L (98-107) 08/29/17 06:41 Carbon Dioxide 19 mmol/L (22-30) L 08/29/17 06:41 Anion Gap 23 mmol/L 08/29/17 06:41 BUN 107 mg/dL (7-17) H 08/29/17 06:41 Creatinine 7.2 mg/dL (0.7-1.2) H 08/29/17 06:41 Estimated GFR 7 ml/min 08/29/17 06:41 BUN/Creatinine Ratio 15 % 08/29/17 06:41 Glucose 102 mg/dL (65-100) H 08/29/17 06:41 POC Glucose 166 (70-105) H 08/29/17 21:53 Calcium 7.6 mg/dL (8.4-10.2) L 08/29/17 06:41 Total Creatine Kinase 118 units/L (30-135) 08/26/17 09:17 CK-MB (CK-2) 2.5 ng/mL (0.0-4.0) 08/26/17 09:17 CK-MB (CK-2) Rel Index 2.1 (0-4) 08/26/17 09:17 Troponin T 0.057 ng/mL (0.00-0.029) H 08/26/17 09:17 NT-Pro-B Natriuret Pep 84666 pg/mL (0-900) H 08/26/17 09:17 Triglycerides 79 mg/dL (2-149) 08/26/17 09:17 Cholesterol 159 mg/dL (50-199) 08/26/17 09:17 LDL Cholesterol Direct 81 mg/dL (50-130) 08/26/17 09:17 HDL Cholesterol 63 mg/dL (40-59) H 08/26/17 09:17 Cholesterol/HDL Ratio 2.52 % 08/26/17 09:17 Urine Color Straw (Yellow) 08/30/17 06:44 Urine Turbidity Cloudy (Clear) 08/30/17 06:44 Urine pH 6.0 (5.0-7.0) 08/30/17 06:44 Ur Specific [place] 1.009 (1.003-1.030) 08/30/17 06:44 Urine Protein 100 mg/dl mg/dL (Negative) 08/30/17 06:44 Urine Glucose (UA) Neg mg/dL (Negative) 08/30/17 06:44 Urine Ketones Neg mg/dL (Negative) 08/30/17 06:44 Urine Blood Sm (Negative) 08/30/17 06:44 Urine Nitrite Neg (Negative) 08/30/17 06:44 Urine Bilirubin Neg (Negative) 08/30/17 06:44 Urine Urobilinogen < 2.0 mg/dL (<2.0) 03 06:44 Ur Leukocyte Esterase Sm (Negative) 08/30/17 06:44 Urine WBC (Auto) 38.0 /HPF (0.0-6.0) H 08/30/17 06:44 Urine RBC (Auto) 14.0 /HPF (0.0-6.0) 08/30/17 06:44 U Epithel Cells (Auto) 13.0 /HPF (0-13.0) 08/30/17 06:44 Urine Bacteria (Auto) 1+ /HPF (Negative) 08/30/17 06:44 Hep Bs Antigen Non-reactive (Negative) 08/29/17 13:59 Blood Type A POSITIVE 08/29/17 13:59 Antibody Screen Negative 08/29/17 13:59 Crossmatch See Detail 08/29/17 13:59
[2017-08-30] MEDS: LASIX IV SCH ×2 (11:44→21:28)
[2017-08-30] MEDS: DITROPAN PO SCH ×2 (11:44→21:27)
[2017-08-30] MEDS: NEURONTIN PO SCH ×2 (11:44→21:27)
[2017-08-30] MEDS: NORVASC PO SCH (11:45)
[2017-08-30] MEDS: PEPCID PO SCH (11:45)
[2017-08-30] MEDS: APRESOLINE PO SCH ×2 (11:46→21:27)
--- NOTE | 2017-08-30 12:08 | Progress Note ---
Assessment and Plan 66 y/o female with acute respiratory failure secondary to volume overload and pulmonary edema with symptomatic anemia, ESRD and STEPHEN No new recs for today. Please see below. 1. Continue bipap therapy at night and PRN. Patient still does not know who manages her STEPHEN. We have never seen her before 2. Volume removal, now HD per renal 3. Blood transfusion 4. Will need to assess O2 need prior to discharge. Subjective Date of service: 08/30/17 Interval history: No acute events. Had vascath placed yesterday. Breathing is stable. Objective Vital Signs - 12hr 08/30/17 08/30/17 08/30/17 00:15 05:34 09:12 Temperature 97.8 F 98.6 F Pulse Rate 67 67 67 Respiratory 21 18 20 Rate Blood Pressure 142/61 Blood Pressure 140/72 [Right] O2 Sat by Pulse 99 98 98 Oximetry 08/30/17 08/30/17 11:45 11:46 Temperature Pulse Rate 67 67 Respiratory Rate Blood Pressure 142/61 142/61 Blood Pressure [Right] O2 Sat by Pulse Oximetry Constitutional: no acute distress, alert, appears uncomfortable Effort: mildly labored Ascultation: Bilateral: rales Percussion: Bilateral: not dull Tactile fremitus: Bilateral: normal Cardiovascular: regular rate and rhythm Gastrointestinal: other (obese) CBC and BMP: 08/29/17 06:41 08/29/17 06:41 Abnormal lab findings: Abnormal Labs 08/26/17 08/26/17 08/26/17 09:17 09:17 09:17 WBC 13.5 H RBC 2.55 L Hgb 5.4 L* Hct 17.1 L* MCV 67 L MCH 21 L RDW 19.0 H Lymph % (Auto) 5.5 L [place] % (Auto) Lymph # 0.7 L [place] # 0.9 H Seg Neutrophils % 86.5 H Seg Neutrophils # 11.6 H Carbon Dioxide 18 L BUN 95 H Creatinine 6.6 H Glucose 187 H POC Glucose Calcium 7.8 L Troponin T NT-Pro-B Natriuret Pep 49336 H HDL Cholesterol Urine WBC (Auto) Crossmatch 08/26/17 08/26/17 08/26/17 09:17 10:35 18:35 WBC RBC Hgb Hct MCV MCH RDW Lymph % (Auto) [place] % (Auto) Lymph # [place] # Seg Neutrophils % Seg Neutrophils # Carbon Dioxide BUN Creatinine Glucose POC Glucose 120 H Calcium Troponin T 0.057 H NT-Pro-B Natriuret Pep HDL Cholesterol 63 H Urine WBC (Auto) Crossmatch See Detail 08/27/17 08/27/17 08/27/17 08:11 08:11 21:28 WBC RBC 2.75 L Hgb 6.3 L Hct 19.0 L* MCV 69 L MCH 23 L RDW 22.4 H Lymph % (Auto) [place] % (Auto) 10.3 H Lymph # [place] # 1.0 H Seg Neutrophils % Seg Neutrophils # Carbon Dioxide 18 L BUN 98 H Creatinine 6.8 H Glucose POC Glucose 202 H Calcium 7.7 L Troponin T NT-Pro-B Natriuret Pep HDL Cholesterol Urine WBC (Auto) Crossmatch 08/28/17 08/28/17 08/28/17 08:27 15:31 15:38 WBC 12.0 H RBC 2.92 L Hgb 7.0 L Hct 21.1 L MCV 72 L MCH 24 L RDW 24.0 H Lymph % (Auto) 11.1 L [place] % (Auto) 10.6 H Lymph # [place] # 1.3 H Seg Neutrophils % 75.4 H Seg Neutrophils # 9.1 H Carbon Dioxide 19 L BUN 106 H Creatinine 7.1 H Glucose 146 H POC Glucose 113 H Calcium 7.7 L Troponin T NT-Pro-B Natriuret Pep HDL Cholesterol Urine WBC (Auto) Crossmatch 08/28/17 08/29/17 08/29/17 21:24 06:33 06:41 WBC 11.2 H RBC 2.79 L Hgb 6.4 L Hct 20.6 L MCV 74 L MCH 23 L RDW 24.5 H Lymph % (Auto) [place] % (Auto) 12.1 H Lymph # [place] # 1.4 H Seg Neutrophils % 70.9 H Seg Neutrophils # 7.9 H Carbon Dioxide BUN Creatinine Glucose POC Glucose 152 H 111 H Calcium Troponin T NT-Pro-B Natriuret Pep HDL Cholesterol Urine WBC (Auto) Crossmatch 08/29/17 08/29/17 08/29/17 06:41 13:59 21:53 WBC RBC Hgb Hct MCV MCH RDW Lymph % (Auto) [place] % (Auto) Lymph # [place] # Seg Neutrophils % Seg Neutrophils # Carbon Dioxide 19 L BUN 107 H Creatinine 7.2 H Glucose 102 H POC Glucose 166 H Calcium 7.6 L Troponin T NT-Pro-B Natriuret Pep HDL Cholesterol Urine WBC (Auto) Crossmatch See Detail 08/30/17 06:44 WBC RBC Hgb Hct MCV MCH RDW Lymph % (Auto) [place] % (Auto) Lymph # [place] # Seg Neutrophils % Seg Neutrophils # Carbon Dioxide BUN Creatinine Glucose POC Glucose Calcium Troponin T NT-Pro-B Natriuret Pep HDL Cholesterol Urine WBC (Auto) 38.0 H Crossmatch
[2017-08-30 13:31] LABS: Hematocrit 25.3 % (30.3-42.9); Hemoglobin 8.1 gm/dl (10.1-14.3); Mean Corpuscular HGB Conc 32 % (30-34); Mean Corpuscular Volume 75 fl (79-97); Platelet Count 216 K/mm3 (140-440); Red Blood Count 3.37 M/mm3 (3.65-5.03)
[2017-08-30 13:34] LABS: Mean Corpuscular Hemoglobin 24 pg (28-32); Red Cell Distribution Width 25.7 % (13.2-15.2)
[2017-08-30] MEDS ORDERED: NACL 0.9% 100 ML IV PRN (13:35)
--- NOTE | 2017-08-30 13:36 | Progress Note ---
Assessment and Plan Impression: * Acute kidney injury secondary to hypoperfusion related to anemia vs progression of CKD to ESRD * Acute hypoxic respiratory failure secondary to pulmonary edema vs pulm HTN * Severe anemia * Hypertension * STEPHEN on CPAP * Pulmonary hypertension * Morbid obesity * Type II DM Plan: * Patient is s/p dialysis yesterday. Will plan for HD again today. * UF as tolerated * Assess for HD need tomorrow * Anemia work up per primary team * Epogen TIW prn * Dose medications for renal function * Avoid nephrotoxins * Strict I/O * Restrict fluid to 1 liter/day Subjective Date of service: 08/30/17 Interval history: Patient has no complaints today Objective - Vital Signs Vital signs: Vital Signs - 12hr 08/30/17 08/30/17 08/30/17 05:34 09:12 10:00 Temperature 97.8 F 98.6 F Pulse Rate 67 67 Respiratory 18 20 Rate Blood Pressure 142/61 Blood Pressure 140/72 [Right] O2 Sat by Pulse 98 98 98 Oximetry 08/30/17 08/30/17 11:45 11:46 Temperature Pulse Rate 67 67 Respiratory Rate Blood Pressure 142/61 142/61 Blood Pressure [Right] O2 Sat by Pulse Oximetry - General Appearance General appearance: well-developed, well-nourished, obese EENT: ATNC Respiratory: Present: Decreased Breath Sounds Cardiology: regular, S1S2 Gastrointestinal: normal, no tenderness, no distended, obese Integumentary: no rash, warm and dry Neurologic: no focal deficit Musculoskeletal: other (2+ edema) Psychiatric: cooperative - Lab 08/30/17 13:08 08/30/17 13:08 Most recent lab results Calcium 7.6 mg/dL (8.4-10.2) L 08/29/17 06:41
[2017-08-30 13:49] LABS: Calcium 7.8 mg/dL (8.4-10.2)
[2017-08-30 14:47] LABS: Basophils % (Manual) 0 % (0.0-1.8); RBC Morphology Normal; Total Cells Counted 100
[2017-08-30] MEDS: HEPARIN IV PRN (17:16)
[2017-08-30] MEDS: PROCRIT IV PRN (18:48)
[2017-08-31 07:35] LABS: Calcium 7.8 mg/dL (8.4-10.2)
[2017-08-31] MEDS: PEPCID PO SCH (09:39)
[2017-08-31] MEDS: NORVASC PO SCH (09:39)
[2017-08-31] MEDS: NEURONTIN PO SCH ×2 (09:40→23:34)
[2017-08-31] MEDS: APRESOLINE PO SCH ×2 (09:40→23:34)
[2017-08-31] MEDS: LASIX IV SCH ×2 (09:41→23:33)
[2017-08-31] MEDS: DITROPAN PO SCH ×2 (09:41→23:34)
[2017-08-31] MEDS: NORCO 7.5/325 PO PRN ×2 (11:06→23:39)
--- NOTE | 2017-08-31 11:09 | Progress Note ---
Assessment and Plan Assessment and plan: Acute on chronic renal failure with progression to ESRD. Vascular surgery placed right internal jugular dialysis catheter on 08/29/17. Pt. s/p dialysis yesterday. Continue HD per Nephrology Acute hypoxic respiratory failure secondary to pulmonary edema vs pulm HTN Acute on Chronic Diastolic heart failure. Cont HD for volume control. Cards following Severe anemia. Cont. F/U h and h and transfuse prn. Patient is status post 4 units PRBCs. Check Hemoccult stool. GI consultation. Hypertension. Cont antihypertensive meds STEPHEN on CPAP Pulmonary hypertension Morbid obesity Type II DM. Accuchecks and SSRI Deconditioning. PT eval History Interval history: No new issues Hospitalist Physical - Constitutional Vitals: Temp Pulse Resp BP Pulse Ox 99.0 F 67 20 147/55 99 08/31/17 07:54 08/31/17 09:40 08/31/17 07:54 08/31/17 09:40 08/31/17 07:54 General appearance: Present: no acute distress, well-nourished - EENT Eyes: Present: PERRL, EOM intact ENT: hearing intact, clear oral mucosa, dentition normal - Neck Neck: Present: supple, normal ROM - Respiratory Respiratory effort: normal Respiratory: bilateral: CTA - Cardiovascular Rhythm: regular Heart Sounds: Present: S1 & S2. Absent: gallop, rub - Extremities Extremities: no ischemia, No edema, Full ROM - Abdominal General gastrointestinal: soft, non-tender, non-distended, normal bowel sounds - Integumentary Integumentary: Present: clear, warm, dry - Neurologic Neurologic: CNII-XII intact, moves all extremities Results - Labs CBC & Chem 7: 08/30/17 13:08 08/31/17 06:54 Labs: Laboratory Last Values WBC 10.2 K/mm3 (4.5-11.0) 08/30/17 13:08 RBC 3.37 M/mm3 (3.65-5.03) L 08/30/17 13:08 Hgb 8.1 gm/dl (10.1-14.3) L 08/30/17 13:08 Hct 25.3 % (30.3-42.9) L 08/30/17 13:08 MCV 75 fl (79-97) L 08/30/17 13:08 MCH 24 pg (28-32) L 08/30/17 13:08 MCHC 32 % (30-34) 08/30/17 13:08 RDW 25.7 % (13.2-15.2) H 08/30/17 13:08 Plt Count 216 K/mm3 (140-440) 08/30/17 13:08 Lymph % (Auto) 14.2 % (13.4-35.0) 08/29/17 06:41 [place] % (Auto) 12.1 % (0.0-7.3) H 08/29/17 06:41 Eos % (Auto) 2.2 % (0.0-4.3) 08/29/17 06:41 Baso % (Auto) 0.6 % (0.0-1.8) 08/29/17 06:41 Lymph # 1.6 K/mm3 (1.2-5.4) 08/29/17 06:41 [place] # 1.4 K/mm3 (0.0-0.8) H 08/29/17 06:41 Eos # 0.2 K/mm3 (0.0-0.4) 08/29/17 06:41 Baso # 0.1 K/mm3 (0.0-0.1) 08/29/17 06:41 Add Manual Diff Complete 08/30/17 13:08 Total Counted 100 08/30/17 13:08 Seg Neutrophils % 70.9 % (40.0-70.0) H 08/29/17 06:41 Seg Neuts % (Manual) 69.0 % (40.0-70.0) 08/30/17 13:08 Band Neutrophils % 0 % 08/30/17 13:08 Lymphocytes % (Manual) 21.0 % (13.4-35.0) 08/30/17 13:08 Reactive Lymphs % (Man) 0 % 08/30/17 13:08 Monocytes % (Manual) 6.0 % (0.0-7.3) 08/30/17 13:08 Eosinophils % (Manual) 4.0 % (0.0-4.3) 08/30/17 13:08 Basophils % (Manual) 0 % (0.0-1.8) 08/30/17 13:08 Metamyelocytes % 0 % 08/30/17 13:08 Myelocytes % 0 % 08/30/17 13:08 Promyelocytes % 0 % 08/30/17 13:08 Blast Cells % 0 % 08/30/17 13:08 Nucleated RBC % Not Reportable 08/30/17 13:08 Seg Neutrophils # 7.9 K/mm3 (1.8-7.7) H 08/29/17 06:41 Seg Neutrophils # Man 7.0 K/mm3 (1.8-7.7) 08/30/17 13:08 Band Neutrophils # 0.0 K/mm3 08/30/17 13:08 Lymphocytes # (Manual) 2.1 K/mm3 (1.2-5.4) 08/30/17 13:08 Abs React Lymphs (Man) 0.0 K/mm3 08/30/17 13:08 Monocytes # (Manual) 0.6 K/mm3 (0.0-0.8) 08/30/17 13:08 Eosinophils # (Manual) 0.4 K/mm3 (0.0-0.4) 08/30/17 13:08 Basophils # (Manual) 0.0 K/mm3 (0.0-0.1) 08/30/17 13:08 Metamyelocytes # 0.0 K/mm3 08/30/17 13:08 Myelocytes # 0.0 K/mm3 08/30/17 13:08 Promyelocytes # 0.0 K/mm3 08/30/17 13:08 Blast Cells # 0.0 K/mm3 08/30/17 13:08 WBC Morphology Not Reportable 08/30/17 13:08 Hypersegmented Neuts Not Reportable 08/30/17 13:08 Hyposegmented Neuts Not Reportable 08/30/17 13:08 Hypogranular Neuts Not Reportable 08/30/17 13:08 Smudge Cells Not Reportable 08/30/17 13:08 Toxic Granulation Not Reportable 08/30/17 13:08 Toxic Vacuolation Not Reportable 08/30/17 13:08 Dohle Bodies Not Reportable 08/30/17 13:08 Pelger-Huet Anomaly Not Reportable 08/30/17 13:08 Patrick Rods Not Reportable 08/30/17 13:08 Platelet Estimate Not Reportable 08/30/17 13:08 Clumped Platelets Not Reportable 08/30/17 13:08 Plt Clumps, EDTA Not Reportable 08/30/17 13:08 Large Platelets Not Reportable 08/30/17 13:08 Giant Platelets Not Reportable 08/30/17 13:08 Platelet Satelliting Not Reportable 08/30/17 13:08 Plt Morphology Comment Not Reportable 08/30/17 13:08 RBC Morphology Normal 08/30/17 13:08 Dimorphic RBCs Not Reportable 08/30/17 13:08 Polychromasia Not Reportable 08/30/17 13:08 Hypochromasia Not Reportable 08/30/17 13:08 Poikilocytosis Not Reportable 08/30/17 13:08 Anisocytosis Not Reportable 08/30/17 13:08 Microcytosis Not Reportable 08/30/17 13:08 Macrocytosis Not Reportable 08/30/17 13:08 Spherocytes Not Reportable 08/30/17 13:08 Pappenheimer Bodies Not Reportable 08/30/17 13:08 Sickle Cells Not Reportable 08/30/17 13:08 Target Cells Not Reportable 08/30/17 13:08 Tear Drop Cells Not Reportable 08/30/17 13:08 Ovalocytes Not Reportable 08/30/17 13:08 Helmet Cells Not Reportable 08/30/17 13:08 [place] Bodies Not Reportable 08/30/17 13:08 [place] Rings Not Reportable 08/30/17 13:08 Nguyen Cells Not Reportable 08/30/17 13:08 Bite Cells Not Reportable 08/30/17 13:08 Crenated Cell Not Reportable 08/30/17 13:08 Elliptocytes Not Reportable 08/30/17 13:08 Acanthocytes (Spur) Not Reportable 08/30/17 13:08 Rouleaux Not Reportable 08/30/17 13:08 Hemoglobin C Crystals Not Reportable 08/30/17 13:08 Schistocytes Not Reportable 08/30/17 13:08 Malaria parasites Not Reportable 08/30/17 13:08 Toni Bodies Not Reportable 08/30/17 13:08 Hem Pathologist Commnt No 08/30/17 13:08 Sodium 141 mmol/L (137-145) 08/31/17 06:54 Potassium 4.9 mmol/L (3.6-5.0) 08/31/17 06:54 Chloride 101.5 mmol/L (98-107) 08/31/17 06:54 Carbon Dioxide 23 mmol/L (22-30) 08/31/17 06:54 Anion Gap 21 mmol/L 08/31/17 06:54 BUN 46 mg/dL (7-17) H 08/31/17 06:54 Creatinine 4.1 mg/dL (0.7-1.2) H 08/31/17 06:54 Estimated GFR 13 ml/min 08/31/17 06:54 BUN/Creatinine Ratio 11 % 08/31/17 06:54 Glucose 115 mg/dL (65-100) H 08/31/17 06:54 POC Glucose 174 (70-105) H 08/30/17 21:12 Calcium 7.8 mg/dL (8.4-10.2) L 08/31/17 06:54 Total Creatine Kinase 118 units/L (30-135) 08/26/17 09:17 CK-MB (CK-2) 2.5 ng/mL (0.0-4.0) 08/26/17 09:17 CK-MB (CK-2) Rel Index 2.1 (0-4) 08/26/17 09:17 Troponin T 0.057 ng/mL (0.00-0.029) H 08/26/17 09:17 NT-Pro-B Natriuret Pep 52213 pg/mL (0-900) H 08/26/17 09:17 Triglycerides 79 mg/dL (2-149) 08/26/17 09:17 Cholesterol 159 mg/dL (50-199) 08/26/17 09:17 LDL Cholesterol Direct 81 mg/dL (50-130) 08/26/17 09:17 HDL Cholesterol 63 mg/dL (40-59) H 08/26/17 09:17 Cholesterol/HDL Ratio 2.52 % 08/26/17 09:17 Urine Color Straw (Yellow) 08/30/17 06:44 Urine Turbidity Cloudy (Clear) 08/30/17 06:44 Urine pH 6.0 (5.0-7.0) 08/30/17 06:44 Ur Specific [place] 1.009 (1.003-1.030) 08/30/17 06:44 Urine Protein 100 mg/dl mg/dL (Negative) 08/30/17 06:44 Urine Glucose (UA) Neg mg/dL (Negative) 08/30/17 06:44 Urine Ketones Neg mg/dL (Negative) 08/30/17 06:44 Urine Blood Sm (Negative) 08/30/17 06:44 Urine Nitrite Neg (Negative) 08/30/17 06:44 Urine Bilirubin Neg (Negative) 08/30/17 06:44 Urine Urobilinogen < 2.0 mg/dL (<2.0) 08/30/17 06:44 Ur Leukocyte Esterase Sm (Negative) 08/30/17 06:44 Urine WBC (Auto) 38.0 /HPF (0.0-6.0) H 08/30/17 06:44 Urine RBC (Auto) 14.0 /HPF (0.0-6.0) 08/30/17 06:44 U Epithel Cells (Auto) 13.0 /HPF (0-13.0) 08/30/17 06:44 Urine Bacteria (Auto) 1+ /HPF (Negative) 08/30/17 06:44 Hep Bs Antigen Non-reactive (Negative) 08/29/17 13:59 Blood Type A POSITIVE 08/29/17 13:59 Antibody Screen Negative 08/29/17 13:59 Crossmatch See Detail 08/29/17 13:59
--- NOTE | 2017-08-31 13:05 | Progress Note ---
Assessment and Plan 66 y/o female with acute respiratory failure secondary to volume overload and pulmonary edema with symptomatic anemia, ESRD and STEPHEN No new recs for today. Please see below. 1. Continue bipap therapy at night and PRN. Patient still does not know who manages her STEPHEN. We have never seen her before 2. Volume removal, now HD per renal 3. Blood transfusion 4. Will need to assess O2 need prior to discharge. has been weaned down to 1 liter with good sat Subjective Date of service: 08/31/17 Interval history: No acute events. Objective Vital Signs - 12hr 08/31/17 08/31/17 08/31/17 04:25 06:26 07:54 Temperature 98.5 F 99.0 F Pulse Rate 75 71 71 Respiratory 18 20 Rate Blood Pressure 127/85 147/55 O2 Sat by Pulse 97 99 Oximetry 08/31/17 08/31/17 09:39 09:40 Temperature Pulse Rate 67 67 Respiratory Rate Blood Pressure 147/55 147/55 O2 Sat by Pulse Oximetry Constitutional: no acute distress, alert, appears uncomfortable Effort: mildly labored Ascultation: Bilateral: rales Percussion: Bilateral: not dull Tactile fremitus: Bilateral: normal Cardiovascular: regular rate and rhythm Gastrointestinal: other (obese) CBC and BMP: 08/30/17 13:08 08/31/17 06:54 Abnormal lab findings: Abnormal Labs 08/26/17 08/26/17 08/26/17 09:17 09:17 09:17 WBC 13.5 H RBC 2.55 L Hgb 5.4 L* Hct 17.1 L* MCV 67 L MCH 21 L RDW 19.0 H Lymph % (Auto) 5.5 L [place] % (Auto) Lymph # 0.7 L [place] # 0.9 H Seg Neutrophils % 86.5 H Seg Neutrophils # 11.6 H Carbon Dioxide 18 L BUN 95 H Creatinine 6.6 H Glucose 187 H POC Glucose Calcium 7.8 L Troponin T NT-Pro-B Natriuret Pep 11360 H HDL Cholesterol Urine WBC (Auto) Crossmatch 08/26/17 08/26/17 08/26/17 09:17 10:35 18:35 WBC RBC Hgb Hct MCV MCH RDW Lymph % (Auto) [place] % (Auto) Lymph # [place] # Seg Neutrophils % Seg Neutrophils # Carbon Dioxide BUN Creatinine Glucose POC Glucose 120 H Calcium Troponin T 0.057 H NT-Pro-B Natriuret Pep HDL Cholesterol 63 H Urine WBC (Auto) Crossmatch See Detail 08/27/17 08/27/17 08/27/17 08:11 08:11 21:28 WBC RBC 2.75 L Hgb 6.3 L Hct 19.0 L* MCV 69 L MCH 23 L RDW 22.4 H Lymph % (Auto) [place] % (Auto) 10.3 H Lymph # [place] # 1.0 H Seg Neutrophils % Seg Neutrophils # Carbon Dioxide 18 L BUN 98 H Creatinine 6.8 H Glucose POC Glucose 202 H Calcium 7.7 L Troponin T NT-Pro-B Natriuret Pep HDL Cholesterol Urine WBC (Auto) Crossmatch 08/28/17 08/28/17 08/28/17 08:27 15:31 15:38 WBC 12.0 H RBC 2.92 L Hgb 7.0 L Hct 21.1 L MCV 72 L MCH 24 L RDW 24.0 H Lymph % (Auto) 11.1 L [place] % (Auto) 10.6 H Lymph # [place] # 1.3 H Seg Neutrophils % 75.4 H Seg Neutrophils # 9.1 H Carbon Dioxide 19 L BUN 106 H Creatinine 7.1 H Glucose 146 H POC Glucose 113 H Calcium 7.7 L Troponin T NT-Pro-B Natriuret Pep HDL Cholesterol Urine WBC (Auto) Crossmatch 08/28/17 08/29/17 08/29/17 21:24 06:33 06:41 WBC 11.2 H RBC 2.79 L Hgb 6.4 L Hct 20.6 L MCV 74 L MCH 23 L RDW 24.5 H Lymph % (Auto) [place] % (Auto) 12.1 H Lymph # [place] # 1.4 H Seg Neutrophils % 70.9 H Seg Neutrophils # 7.9 H Carbon Dioxide BUN Creatinine Glucose POC Glucose 152 H 111 H Calcium Troponin T NT-Pro-B Natriuret Pep HDL Cholesterol Urine WBC (Auto) Crossmatch 08/29/17 08/29/17 08/29/17 06:41 13:59 21:53 WBC RBC Hgb Hct MCV MCH RDW Lymph % (Auto) [place] % (Auto) Lymph # [place] # Seg Neutrophils % Seg Neutrophils # Carbon Dioxide 19 L BUN 107 H Creatinine 7.2 H Glucose 102 H POC Glucose 166 H Calcium 7.6 L Troponin T NT-Pro-B Natriuret Pep HDL Cholesterol Urine WBC (Auto) Crossmatch See Detail 08/30/17 08/30/17 08/30/17 06:44 12:11 13:08 WBC RBC 3.37 L Hgb 8.1 L Hct 25.3 L MCV 75 L MCH 24 L RDW 25.7 H Lymph % (Auto) [place] % (Auto) Lymph # [place] # Seg Neutrophils % Seg Neutrophils # Carbon Dioxide BUN Creatinine Glucose POC Glucose 124 H Calcium Troponin T NT-Pro-B Natriuret Pep HDL Cholesterol Urine WBC (Auto) 38.0 H Crossmatch 08/30/17 08/30/17 08/31/17 13:08 21:12 06:54 WBC RBC Hgb Hct MCV MCH RDW Lymph % (Auto) [place] % (Auto) Lymph # [place] # Seg Neutrophils % Seg Neutrophils # Carbon Dioxide BUN 78 H 46 H Creatinine 5.7 H 4.1 H Glucose 114 H 115 H POC Glucose 174 H Calcium 7.8 L 7.8 L Troponin T NT-Pro-B Natriuret Pep HDL Cholesterol Urine WBC (Auto) Crossmatch
--- NOTE | 2017-08-31 15:00 | Progress Note ---
Assessment and Plan Impression: * End stage renal disease * Acute hypoxic respiratory failure secondary to pulmonary edema vs pulm HTN * Severe anemia * Hypertension * STEPHEN on CPAP * Pulmonary hypertension * Morbid obesity * Type II DM Plan: * Hemodialysis today; continue HD TTS * UF as tolerated * Anemia work up per primary team; GI following * Epogen TIW prn * Dose medications for renal function * Avoid nephrotoxins * Strict I/O * Restrict fluid to 1 liter/day * Outpatient dialysis clinic placement in progress * Mobility is limited. Note PT recommendation for home health PT Subjective Date of service: 08/31/17 Interval history: Patient worked with PT today - was able to sit at side of bed, walk to bedside commode. Objective - Vital Signs Vital signs: Vital Signs - 12hr 08/31/17 08/31/17 08/31/17 04:25 06:26 07:54 Temperature 98.5 F 99.0 F Pulse Rate 75 71 71 Respiratory 18 20 Rate Blood Pressure 127/85 147/55 O2 Sat by Pulse 97 99 Oximetry 08/31/17 08/31/17 08/31/17 09:39 09:40 10:00 Temperature Pulse Rate 67 67 Respiratory Rate Blood Pressure 147/55 147/55 O2 Sat by Pulse 99 Oximetry - General Appearance General appearance: well-developed, well-nourished, obese EENT: ATNC Respiratory: Present: Decreased Breath Sounds Cardiology: regular, S1S2 Gastrointestinal: no tenderness, no distended, obese Neurologic: no focal deficit Musculoskeletal: other (+edema) Psychiatric: cooperative - Lab 08/31/17 14:59 08/31/17 06:54 Most recent lab results Calcium 7.8 mg/dL (8.4-10.2) L 08/31/17 06:54
[2017-08-31 15:34] LABS: Hematocrit 24.5 % (30.3-42.9); Mean Corpuscular HGB Conc 33 % (30-34); Mean Corpuscular Volume 74 fl (79-97); Platelet Count 213 K/mm3 (140-440); Red Blood Count 3.29 M/mm3 (3.65-5.03)
[2017-08-31 15:47] LABS: Mean Corpuscular Hemoglobin 24 pg (28-32)
[2017-08-31] MEDS ORDERED: NACL 0.9% 100 ML IV PRN (15:47)
[2017-08-31 17:10] LABS: Anisocytosis 1+; Platelet Estimate Consistent w Auto; Total Cells Counted 100
--- NOTE | 2017-08-31 17:20 | Progress Note ---
Assessment and Plan Pt s/p [facility] which she is using for HD. Pt's vein mapping reviewed. Multiple veins appear to be of adequate size for avf creation. Her arteries are reported as calcific. Discussed creation of retirement HD access. Pt tentatively agrees. Will review our schedule, likely 1st available OR day would be early next week. If pt is d/c 'd home 1st then she could f/u with our office as an outpt. Pt is right arm dominant. Would recommend avoiding LUE venipuncture to preserve options for AVF creation. - Patient Problems (1) ESRD on hemodialysis Current Visit: Yes Status: Acute Subjective Date of service: 08/31/17 Interval history: Pt awake and alert without complaint at present. Objective - Constitutional Vitals: Vital Signs - 12hr 08/31/17 08/31/17 08/31/17 06:26 07:54 09:39 Temperature 99.0 F Pulse Rate 71 71 67 Respiratory 20 Rate Blood Pressure 147/55 147/55 O2 Sat by Pulse 99 Oximetry 08/31/17 08/31/17 09:40 10:00 Temperature Pulse Rate 67 Respiratory Rate Blood Pressure 147/55 O2 Sat by Pulse 99 Oximetry General appearance: Present: no acute distress - EENT Eyes: EOM intact ENT: hearing intact - Respiratory Respiratory effort: normal (unlabored at rest on O2 supplementation with HOB elevated 45degrees) Extremities: no ischemia - Neurologic Neurologic: no focal deficits - Psychiatric Psychiatric: appropriate mood/affect, intact judgment & insight, cooperative - Labs CBC & Chem 7: 08/31/17 14:59 08/31/17 06:54 Labs: Abnormal lab results 08/30/17 08/30/17 08/31/17 Range/Units 12:11 21:12 06:54 RBC (3.65-5.03) M/mm3 Hgb (10.1-14.3) gm/dl Hct (30.3-42.9) % MCV (79-97) fl MCH (28-32) pg RDW (13.2-15.2) % Seg Neuts % (Manual) (40.0-70.0) % Eosinophils % (Manual) (0.0-4.3) % Eosinophils # (Manual) (0.0-0.4) K/mm3 BUN 46 H (7-17) mg/dL Creatinine 4.1 H (0.7-1.2) mg/dL Glucose 115 H (65-100) mg/dL POC Glucose 124 H 174 H (70-105) Calcium 7.8 L (8.4-10.2) mg/dL 08/31/17 08/31/17 Range/Units 12:26 14:59 RBC 3.29 L (3.65-5.03) M/mm3 Hgb 8.0 L (10.1-14.3) gm/dl Hct 24.5 L (30.3-42.9) % MCV 74 L (79-97) fl MCH 24 L (28-32) pg RDW 25.0 H (13.2-15.2) % Seg Neuts % (Manual) 71.0 H (40.0-70.0) % Eosinophils % (Manual) 7.0 H (0.0-4.3) % Eosinophils # (Manual) 0.7 H (0.0-0.4) K/mm3 BUN (7-17) mg/dL Creatinine (0.7-1.2) mg/dL Glucose (65-100) mg/dL POC Glucose 114 H (70-105) Calcium (8.4-10.2) mg/dL
[2017-08-31] MEDS ORDERED: NACL 0.9 (PRIMING MACHINE ONLY DIALYSIS) MC ONE (19:05)
[2017-08-31] MEDS: HEPARIN IV PRN (19:13)
[2017-08-31] MEDS: PROCRIT IV PRN (19:14)
--- NOTE | 2017-08-31 20:56 | Consultation ---
INDICATION: Anemia. HISTORY OF PRESENT ILLNESS: The patient is a 66-year-old obese black female with history of diabetes, chronic venous stasis, CHF, COPD, diabetes, obstructive sleep apnea, on CPAP. The patient also has a history of hypertension, chronic renal insufficiency. The patient presented to the Emergency Room with shortness of breath and signs and symptoms consistent with CHF. The patient has a history of reported acute on chronic anemia. The patient is not the best historian. She reports the last colonoscopy was 3-4 years ago. She denies any hematemesis or black tarry stools. Denies any other signs of GI bleed. The patient has been managed for pulmonary and cardiac issues and GI is consulted to aid in management. Denies any other specific complaints. PAST MEDICAL HISTORY: Includes diabetes, hypertension, chronic renal insufficiency, obstructive sleep apnea, CPAP. MEDICATIONS: See chart. ALLERGIES: PENICILLIN. SOCIAL HISTORY: Denies alcohol. FAMILY HISTORY: Negative for colon cancer. REVIEW OF SYSTEMS: GENERAL: Reports weakness. HEENT: No visual complaints. PULMONARY: Reports some shortness of breath. No cough. No chest pain. GASTROINTESTINAL: Reports no specific complaints. All points of 13-point review of systems otherwise negative. PHYSICAL EXAMINATION: VITAL SIGNS: Temperature of 98.7, pulse 67, respirations 20, blood pressure 147/55. GENERAL: Obese black female in no acute distress. HEENT: Pupils equal, round, reactive. PULMONARY: Rhonchi. CARDIOVASCULAR: Regular rhythm. ABDOMEN: Soft. SKIN: No obvious rashes. LABORATORY DATA: Pertinent for white count of 10.3, hemoglobin and hematocrit of 8 and 24.5, platelet count of 213. Coags within normal limits. Chem-7 within normal limits. ASSESSMENT AND PLAN: The patient is a 66-year-old black female, obese, with multiple medical problems as noted above, admitted for pulmonary and cardiac exacerbation of symptoms. The patient is now being seen by GI for anemia. The patient presented initially with low blood count requiring transfusion of 5.4. Since that time, she has maintained her hemoglobin in the 7.5-8.5. I have discussed with the patient. The patient is not the easiest patient to talk to at times, becomes very abrasive at times. Management is noted below. PLAN: 1. Follow hemoglobin and hematocrit and transfuse as needed. 2. PPI daily. 3. Pulmonary, cardiac issues per primary team. 4. We will hold off any endoscopic evaluation unless necessary given the patient's medical issues etc. 5. We will follow for now. JOB# [id number] CAB/NTS
--- NOTE | 2017-09-01 07:47 | Progress Note ---
Assessment and Plan Acute respiratory failure - resolved Volume overload - resolved Symptomatic anemia s/p blood transfusion Chronic renal failure with progression to ESRD for planned permacath placement and to initiate dialysis today STEPHEN Obesity Deconditioned EF 60-65% on echocardiography. Recommendations: PT/OT evaluation for deconditioning. Otherwise conservative cardiac management. Will sign off Subjective Date of service: 09/01/17 Principal diagnosis: Respiratory failure Interval history: Patient denies chest pain or shortness of breath No events on tele Objective Vital Signs Temp Pulse Resp BP Pulse Ox 09/01/17 03:55 98.5 F 59 L 18 145/55 99 09/01/17 00:57 74 20 97 08/31/17 23:34 165/60 08/31/17 23:31 76 08/31/17 23:20 99.1 F 68 20 165/60 98 08/31/17 22:34 98.1 F 64 16 129/54 08/31/17 22:20 61 138/58 08/31/17 22:00 64 126/88 98 08/31/17 21:45 62 155/76 08/31/17 21:30 62 149/62 08/31/17 21:17 63 154/62 08/31/17 21:00 66 147/66 08/31/17 20:45 60 130/60 08/31/17 20:30 59 L 135/62 08/31/17 20:15 62 132/64 08/31/17 20:00 61 141/63 08/31/17 19:45 60 129/62 08/31/17 19:30 60 138/58 08/31/17 19:15 61 141/62 08/31/17 19:08 97.8 F 64 20 140/32 08/31/17 19:05 63 127/61 08/31/17 18:50 64 140/32 08/31/17 16:44 99.3 F 72 22 127/51 98 08/31/17 12:17 99.0 F 72 20 128/53 98 08/31/17 10:00 99 08/31/17 09:40 67 147/55 08/31/17 09:39 67 147/55 08/31/17 07:54 99.0 F 71 20 147/55 99 - Physical Examination General: No Apparent Distress HEENT: Positive: PERRL Neck: Positive: neck supple Cardiac: Positive: Reg Rate and Rhythm Lungs: Positive: Normal Exam Neuro: Positive: Grossly Intact - Labs and Meds CBC 08/31/17 Range/Units 14:59 WBC 10.3 (4.5-11.0) K/mm3 RBC 3.29 L (3.65-5.03) M/mm3 Hgb 8.0 L (10.1-14.3) gm/dl Hct 24.5 L (30.3-42.9) % Plt Count 213 (140-440) K/mm3 Comprehensive Metabolic Panel 08/31/17 Range/Units 06:54 Potassium 4.9 (3.6-5.0) mmol/L
--- NOTE | 2017-09-01 09:33 | Progress Note ---
Assessment and Plan 66 y/o female with acute respiratory failure secondary to volume overload and pulmonary edema with symptomatic anemia, ESRD and STEPHEN No new recs for today. Please see below. 1. Continue bipap therapy at night and PRN. Patient still does not know who manages her STEPHEN. We have never seen her before 2. Volume removal, now HD per renal 3. Blood transfusion 4. Will need to assess O2 need prior to discharge. Subjective Date of service: 09/01/17 Principal diagnosis: Respiratory failure Interval history: No acute events overnight. Still on nasal cannula. Objective Vital Signs - 12hr 08/31/17 08/31/17 08/31/17 21:30 21:45 22:00 Temperature Pulse Rate 62 62 64 Respiratory Rate Blood Pressure 149/62 155/76 126/88 O2 Sat by Pulse 98 Oximetry 08/31/17 08/31/17 08/31/17 22:20 22:34 23:20 Temperature 98.1 F 99.1 F Pulse Rate 61 64 68 Respiratory 16 20 Rate Blood Pressure 138/58 129/54 165/60 O2 Sat by Pulse 98 Oximetry 08/31/17 08/31/17 09/01/17 23:31 23:34 00:57 Temperature Pulse Rate 76 74 Respiratory 20 Rate Blood Pressure 165/60 O2 Sat by Pulse 97 Oximetry 09/01/17 09/01/17 03:55 08:11 Temperature 98.5 F 98.6 F Pulse Rate 59 L 64 Respiratory 18 20 Rate Blood Pressure 145/55 153/57 O2 Sat by Pulse 99 100 Oximetry Constitutional: no acute distress, alert, appears uncomfortable Effort: mildly labored Ascultation: Bilateral: rales Percussion: Bilateral: not dull Tactile fremitus: Bilateral: normal Cardiovascular: regular rate and rhythm Gastrointestinal: other (obese) CBC and BMP: 08/31/17 14:59 08/31/17 06:54 Abnormal lab findings: Abnormal Labs 08/26/17 08/26/17 08/26/17 09:17 09:17 09:17 WBC 13.5 H RBC 2.55 L Hgb 5.4 L* Hct 17.1 L* MCV 67 L MCH 21 L RDW 19.0 H Lymph % (Auto) 5.5 L [place] % (Auto) Lymph # 0.7 L [place] # 0.9 H Seg Neutrophils % 86.5 H Seg Neuts % (Manual) Eosinophils % (Manual) Seg Neutrophils # 11.6 H Eosinophils # (Manual) Carbon Dioxide 18 L BUN 95 H Creatinine 6.6 H Glucose 187 H POC Glucose Calcium 7.8 L Troponin T NT-Pro-B Natriuret Pep 51548 H HDL Cholesterol Urine WBC (Auto) Crossmatch 08/26/17 08/26/17 08/26/17 09:17 10:35 18:35 WBC RBC Hgb Hct MCV MCH RDW Lymph % (Auto) [place] % (Auto) Lymph # [place] # Seg Neutrophils % Seg Neuts % (Manual) Eosinophils % (Manual) Seg Neutrophils # Eosinophils # (Manual) Carbon Dioxide BUN Creatinine Glucose POC Glucose 120 H Calcium Troponin T 0.057 H NT-Pro-B Natriuret Pep HDL Cholesterol 63 H Urine WBC (Auto) Crossmatch See Detail 08/27/17 08/27/17 08/27/17 08:11 08:11 21:28 WBC RBC 2.75 L Hgb 6.3 L Hct 19.0 L* MCV 69 L MCH 23 L RDW 22.4 H Lymph % (Auto) [place] % (Auto) 10.3 H Lymph # [place] # 1.0 H Seg Neutrophils % Seg Neuts % (Manual) Eosinophils % (Manual) Seg Neutrophils # Eosinophils # (Manual) Carbon Dioxide 18 L BUN 98 H Creatinine 6.8 H Glucose POC Glucose 202 H Calcium 7.7 L Troponin T NT-Pro-B Natriuret Pep HDL Cholesterol Urine WBC (Auto) Crossmatch 08/28/17 08/28/17 08/28/17 08:27 15:31 15:38 WBC 12.0 H RBC 2.92 L Hgb 7.0 L Hct 21.1 L MCV 72 L MCH 24 L RDW 24.0 H Lymph % (Auto) 11.1 L [place] % (Auto) 10.6 H Lymph # [place] # 1.3 H Seg Neutrophils % 75.4 H Seg Neuts % (Manual) Eosinophils % (Manual) Seg Neutrophils # 9.1 H Eosinophils # (Manual) Carbon Dioxide 19 L BUN 106 H Creatinine 7.1 H Glucose 146 H POC Glucose 113 H Calcium 7.7 L Troponin T NT-Pro-B Natriuret Pep HDL Cholesterol Urine WBC (Auto) Crossmatch 08/28/17 08/29/17 08/29/17 21:24 06:33 06:41 WBC 11.2 H RBC 2.79 L Hgb 6.4 L Hct 20.6 L MCV 74 L MCH 23 L RDW 24.5 H Lymph % (Auto) [place] % (Auto) 12.1 H Lymph # [place] # 1.4 H Seg Neutrophils % 70.9 H Seg Neuts % (Manual) Eosinophils % (Manual) Seg Neutrophils # 7.9 H Eosinophils # (Manual) Carbon Dioxide BUN Creatinine Glucose POC Glucose 152 H 111 H Calcium Troponin T NT-Pro-B Natriuret Pep HDL Cholesterol Urine WBC (Auto) Crossmatch 08/29/17 08/29/17 08/29/17 06:41 13:59 21:53 WBC RBC Hgb Hct MCV MCH RDW Lymph % (Auto) [place] % (Auto) Lymph # [place] # Seg Neutrophils % Seg Neuts % (Manual) Eosinophils % (Manual) Seg Neutrophils # Eosinophils # (Manual) Carbon Dioxide 19 L BUN 107 H Creatinine 7.2 H Glucose 102 H POC Glucose 166 H Calcium 7.6 L Troponin T NT-Pro-B Natriuret Pep HDL Cholesterol Urine WBC (Auto) Crossmatch See Detail 08/30/17 08/30/17 08/30/17 06:44 12:11 13:08 WBC RBC 3.37 L Hgb 8.1 L Hct 25.3 L MCV 75 L MCH 24 L RDW 25.7 H Lymph % (Auto) [place] % (Auto) Lymph # [place] # Seg Neutrophils % Seg Neuts % (Manual) Eosinophils % (Manual) Seg Neutrophils # Eosinophils # (Manual) Carbon Dioxide BUN Creatinine Glucose POC Glucose 124 H Calcium Troponin T NT-Pro-B Natriuret Pep HDL Cholesterol Urine WBC (Auto) 38.0 H Crossmatch 08/30/17 08/30/17 08/31/17 13:08 21:12 06:54 WBC RBC Hgb Hct MCV MCH RDW Lymph % (Auto) [place] % (Auto) Lymph # [place] # Seg Neutrophils % Seg Neuts % (Manual) Eosinophils % (Manual) Seg Neutrophils # Eosinophils # (Manual) Carbon Dioxide BUN 78 H 46 H Creatinine 5.7 H 4.1 H Glucose 114 H 115 H POC Glucose 174 H Calcium 7.8 L 7.8 L Troponin T NT-Pro-B Natriuret Pep HDL Cholesterol Urine WBC (Auto) Crossmatch 08/31/17 08/31/17 08/31/17 12:26 14:59 16:53 WBC RBC 3.29 L Hgb 8.0 L Hct 24.5 L MCV 74 L MCH 24 L RDW 25.0 H Lymph % (Auto) [place] % (Auto) Lymph # [place] # Seg Neutrophils % Seg Neuts % (Manual) 71.0 H Eosinophils % (Manual) 7.0 H Seg Neutrophils # Eosinophils # (Manual) 0.7 H Carbon Dioxide BUN Creatinine Glucose POC Glucose 114 H 128 H Calcium Troponin T NT-Pro-B Natriuret Pep HDL Cholesterol Urine WBC (Auto) Crossmatch 08/31/17 23:57 WBC RBC Hgb Hct MCV MCH RDW Lymph % (Auto) [place] % (Auto) Lymph # [place] # Seg Neutrophils % Seg Neuts % (Manual) Eosinophils % (Manual) Seg Neutrophils # Eosinophils # (Manual) Carbon Dioxide BUN Creatinine Glucose POC Glucose 145 H Calcium Troponin T NT-Pro-B Natriuret Pep HDL Cholesterol Urine WBC (Auto) Crossmatch
[2017-09-01] MEDS: DITROPAN PO SCH ×2 (10:20→21:41)
[2017-09-01] MEDS: NEURONTIN PO SCH ×2 (10:20→21:41)
[2017-09-01] MEDS: APRESOLINE PO SCH ×2 (10:20→21:45)
[2017-09-01] MEDS: NORVASC PO SCH (10:20)
[2017-09-01] MEDS: LASIX IV SCH ×2 (10:21→21:41)
[2017-09-01] MEDS: PEPCID PO SCH (10:21)
[2017-09-01] MEDS: NORCO 7.5/325 PO PRN ×2 (10:22→18:47)
--- NOTE | 2017-09-01 13:21 | Progress Note ---
Assessment and Plan Impression: * End stage renal disease * Acute hypoxic respiratory failure secondary to pulmonary edema vs pulm HTN * Severe anemia * Hypertension * STEPHEN on CPAP * Pulmonary hypertension * Morbid obesity * Type II DM Plan: * Hemodialysis TTS * UF as tolerated * Anemia work up per primary team; GI following * Epogen TIW prn * Dose medications for renal function * Avoid nephrotoxins * Strict I/O * Restrict fluid to 1 liter/day * Outpatient dialysis clinic placement at [facility] MWF 11am * Mobility is limited. Note PT recommendation for home health PT Subjective Date of service: 09/01/17 Principal diagnosis: Respiratory failure Interval history: Patient has no complaints today. Objective - Vital Signs Vital signs: Vital Signs - 12hr 09/01/17 09/01/17 09/01/17 03:55 08:11 10:00 Temperature 98.5 F 98.6 F Pulse Rate 59 L 64 64 Respiratory 18 20 20 Rate Blood Pressure 145/55 153/57 O2 Sat by Pulse 99 100 96 Oximetry 09/01/17 09/01/17 09/01/17 10:20 10:22 12:12 Temperature 98.6 F Pulse Rate 64 66 Respiratory 20 20 Rate Blood Pressure 145/59 O2 Sat by Pulse 95 Oximetry - General Appearance General appearance: well-developed, well-nourished, other (sitting at bedside; breathing comfortably on room air) EENT: ATNC Respiratory: Present: Clear to Ascultation Cardiology: regular, S1S2 Gastrointestinal: normal, no tenderness, no distended Integumentary: warm and dry Neurologic: no focal deficit, alert and oriented x3 Musculoskeletal: other (+edema) Psychiatric: cooperative - Lab 09/01/17 13:03 09/01/17 13:03 Most recent lab results Calcium 7.8 mg/dL (8.4-10.2) L 08/31/17 06:54
[2017-09-01 13:34] LABS: Hemoglobin 8.8 gm/dl (10.1-14.3)
[2017-09-01 13:37] LABS: Hematocrit 28.3 % (30.3-42.9); Mean Corpuscular HGB Conc 31 % (30-34); Mean Corpuscular Hemoglobin 24 pg (28-32); Mean Corpuscular Volume 76 fl (79-97); Red Blood Count 3.74 M/mm3 (3.65-5.03)
[2017-09-01 13:38] LABS: Calcium 8.4 mg/dL (8.4-10.2); Red Cell Distribution Width 25.4 % (13.2-15.2)
--- NOTE | 2017-09-01 13:44 | Progress Note ---
Assessment and Plan Assessment and plan: Acute on chronic renal failure with progression to ESRD. Hemodialysis TTS. Outpatient dialysis clinic placement at [facility] MWF Acute hypoxic respiratory failure secondary to pulmonary edema vs pulm HTN Acute on Chronic Diastolic heart failure. Cont HD for volume control. Cards following Severe anemia. Cont. F/U h and h and transfuse prn. Patient is status post 4 units PRBCs. Check Hemoccult stool. GI consultation during this hospitalization or follow-up as an outpatient. H&H appears to be stable.. Hypertension. Cont antihypertensive meds STEPHEN on CPAP Pulmonary hypertension Morbid obesity Type II DM. Accuchecks and SSRI Deconditioning. Home health PT at discharge. Disposition. We will likely discharge in a.m. History Interval history: No new issues Hospitalist Physical - Constitutional Vitals: Temp Pulse Resp BP Pulse Ox 98.6 F 66 20 145/59 95 09/01/17 12:12 09/01/17 12:12 09/01/17 12:12 09/01/17 12:12 09/01/17 12:12 General appearance: Present: no acute distress - EENT Eyes: Present: PERRL, EOM intact ENT: hearing intact, clear oral mucosa, dentition normal - Neck Neck: Present: supple, normal ROM - Respiratory Respiratory effort: normal Respiratory: bilateral: CTA - Cardiovascular Rhythm: regular Heart Sounds: Present: S1 & S2. Absent: gallop, rub - Extremities Extremities: no ischemia, No edema, Full ROM - Abdominal General gastrointestinal: soft, non-tender, non-distended, normal bowel sounds - Integumentary Integumentary: Present: clear, warm, dry - Neurologic Neurologic: CNII-XII intact, moves all extremities Results - Labs CBC & Chem 7: 09/01/17 13:03 09/01/17 13:03 Labs: Laboratory Last Values WBC 13.8 K/mm3 (4.5-11.0) H 09/01/17 13:03 RBC 3.74 M/mm3 (3.65-5.03) 09/01/17 13:03 Hgb 8.8 gm/dl (10.1-14.3) L 09/01/17 13:03 Hct 28.3 % (30.3-42.9) L 09/01/17 13:03 MCV 76 fl (79-97) L 09/01/17 13:03 MCH 24 pg (28-32) L 09/01/17 13:03 MCHC 31 % (30-34) 09/01/17 13:03 RDW 25.4 % (13.2-15.2) H 09/01/17 13:03 Plt Count 213 K/mm3 (140-440) 08/31/17 14:59 Lymph % (Auto) Software Quality Automation Engineer 09/01/17 13:03 [place] % (Auto) Software Quality Automation Engineer 09/01/17 13:03 Eos % (Auto) Software Quality Automation Engineer 09/01/17 13:03 Baso % (Auto) Software Quality Automation Engineer 09/01/17 13:03 Lymph # Software Quality Automation Engineer 09/01/17 13:03 [place] # Software Quality Automation Engineer 09/01/17 13:03 Eos # Software Quality Automation Engineer 09/01/17 13:03 Baso # Software Quality Automation Engineer 09/01/17 13:03 Add Manual Diff Complete 08/31/17 14:59 Total Counted 100 08/31/17 14:59 Seg Neutrophils % Software Quality Automation Engineer 09/01/17 13:03 Seg Neuts % (Manual) 71.0 % (40.0-70.0) H 08/31/17 14:59 Band Neutrophils % 0 % 08/31/17 14:59 Lymphocytes % (Manual) 15.0 % (13.4-35.0) 08/31/17 14:59 Reactive Lymphs % (Man) 0 % 08/31/17 14:59 Monocytes % (Manual) 6.0 % (0.0-7.3) 08/31/17 14:59 Eosinophils % (Manual) 7.0 % (0.0-4.3) H 08/31/17 14:59 Basophils % (Manual) 1.0 % (0.0-1.8) 08/31/17 14:59 Metamyelocytes % 0 % 08/31/17 14:59 Myelocytes % 0 % 08/31/17 14:59 Promyelocytes % 0 % 08/31/17 14:59 Blast Cells % 0 % 08/31/17 14:59 Nucleated RBC % Not Reportable 08/31/17 14:59 Seg Neutrophils # Software Quality Automation Engineer 09/01/17 13:03 Seg Neutrophils # Man 7.3 K/mm3 (1.8-7.7) 08/31/17 14:59 Band Neutrophils # 0.0 K/mm3 08/31/17 14:59 Lymphocytes # (Manual) 1.5 K/mm3 (1.2-5.4) 08/31/17 14:59 Abs React Lymphs (Man) 0.0 K/mm3 08/31/17 14:59 Monocytes # (Manual) 0.6 K/mm3 (0.0-0.8) 08/31/17 14:59 Eosinophils # (Manual) 0.7 K/mm3 (0.0-0.4) H 08/31/17 14:59 Basophils # (Manual) 0.1 K/mm3 (0.0-0.1) 08/31/17 14:59 Metamyelocytes # 0.0 K/mm3 08/31/17 14:59 Myelocytes # 0.0 K/mm3 08/31/17 14:59 Promyelocytes # 0.0 K/mm3 08/31/17 14:59 Blast Cells # 0.0 K/mm3 08/31/17 14:59 WBC Morphology Not Reportable 08/31/17 14:59 Hypersegmented Neuts Not Reportable 08/31/17 14:59 Hyposegmented Neuts Not Reportable 08/31/17 14:59 Hypogranular Neuts Not Reportable 08/31/17 14:59 Smudge Cells Not Reportable 08/31/17 14:59 Toxic Granulation Not Reportable 08/31/17 14:59 Toxic Vacuolation Not Reportable 08/31/17 14:59 Dohle Bodies Not Reportable 08/31/17 14:59 Pelger-Huet Anomaly Not Reportable 08/31/17 14:59 Patrick Rods Not Reportable 08/31/17 14:59 Platelet Estimate Consistent w auto 08/31/17 14:59 Clumped Platelets Not Reportable 08/31/17 14:59 Plt Clumps, EDTA Not Reportable 08/31/17 14:59 Large Platelets Not Reportable 08/31/17 14:59 Giant Platelets Not Reportable 08/31/17 14:59 Platelet Satelliting Not Reportable 08/31/17 14:59 Plt Morphology Comment Not Reportable 08/31/17 14:59 RBC Morphology Not Reportable 08/31/17 14:59 Dimorphic RBCs Not Reportable 08/31/17 14:59 Polychromasia Not Reportable 08/31/17 14:59 Hypochromasia Not Reportable 08/31/17 14:59 Poikilocytosis Not Reportable 08/31/17 14:59 Anisocytosis 1+ 08/31/17 14:59 Microcytosis Not Reportable 08/31/17 14:59 Macrocytosis Not Reportable 08/31/17 14:59 Spherocytes Not Reportable 08/31/17 14:59 Pappenheimer Bodies Not Reportable 08/31/17 14:59 Sickle Cells Not Reportable 08/31/17 14:59 Target Cells Not Reportable 08/31/17 14:59 Tear Drop Cells Not Reportable 08/31/17 14:59 Ovalocytes Not Reportable 08/31/17 14:59 Helmet Cells Not Reportable 08/31/17 14:59 [place] Bodies Not Reportable 08/31/17 14:59 [place] Rings Not Reportable 08/31/17 14:59 [place] Cells Not Reportable 08/31/17 14:59 Bite Cells Not Reportable 08/31/17 14:59 Crenated Cell Not Reportable 08/31/17 14:59 Elliptocytes Not Reportable 08/31/17 14:59 Acanthocytes (Spur) Not Reportable 08/31/17 14:59 Rouleaux Not Reportable 08/31/17 14:59 Hemoglobin C Crystals Not Reportable 08/31/17 14:59 Schistocytes Not Reportable 08/31/17 14:59 Malaria parasites Not Reportable 08/31/17 14:59 Toni Bodies Not Reportable 08/31/17 14:59 Hem Pathologist Commnt No 08/31/17 14:59 Sodium 136 mmol/L (137-145) L 09/01/17 13:03 Potassium 4.7 mmol/L (3.6-5.0) 09/01/17 13:03 Chloride 95.4 mmol/L (98-107) L 09/01/17 13:03 Carbon Dioxide 26 mmol/L (22-30) 09/01/17 13:03 Anion Gap 19 mmol/L 09/01/17 13:03 BUN 23 mg/dL (7-17) H 09/01/17 13:03 Creatinine 3.3 mg/dL (0.7-1.2) H 09/01/17 13:03 Estimated GFR 17 ml/min 09/01/17 13:03 BUN/Creatinine Ratio 7 % 09/01/17 13:03 Glucose 106 mg/dL (65-100) H 09/01/17 13:03 POC Glucose 145 (70-105) H 08/31/17 23:57 Calcium 8.4 mg/dL (8.4-10.2) 09/01/17 13:03 Total Creatine Kinase 118 units/L (30-135) 08/26/17 09:17 CK-MB (CK-2) 2.5 ng/mL (0.0-4.0) 08/26/17 09:17 CK-MB (CK-2) Rel Index 2.1 (0-4) 08/26/17 09:17 Troponin T 0.057 ng/mL (0.00-0.029) H 08/26/17 09:17 NT-Pro-B Natriuret Pep 74358 pg/mL (0-900) H 08/26/17 09:17 Triglycerides 79 mg/dL (2-149) 08/26/17 09:17 Cholesterol 159 mg/dL (50-199) 08/26/17 09:17 LDL Cholesterol Direct 81 mg/dL (50-130) 08/26/17 09:17 HDL Cholesterol 63 mg/dL (40-59) H 08/26/17 09:17 Cholesterol/HDL Ratio 2.52 % 08/26/17 09:17 Urine Color Straw (Yellow) 08/30/17 06:44 Urine Turbidity Cloudy (Clear) 08/30/17 06:44 Urine pH 6.0 (5.0-7.0) 08/30/17 06:44 Ur Specific [place] 1.009 (1.003-1.030) 08/30/17 06:44 Urine Protein 100 mg/dl mg/dL (Negative) 08/30/17 06:44 Urine Glucose (UA) Neg mg/dL (Negative) 08/30/17 06:44 Urine Ketones Neg mg/dL (Negative) 08/30/17 06:44 Urine Blood Sm (Negative) 08/30/17 06:44 Urine Nitrite Neg (Negative) 08/30/17 06:44 Urine Bilirubin Neg (Negative) 08/30/17 06:44 Urine Urobilinogen < 2.0 mg/dL (<2.0) 08/30/17 06:44 Ur Leukocyte Esterase Sm (Negative) 08/30/17 06:44 Urine WBC (Auto) 38.0 /HPF (0.0-6.0) H 08/30/17 06:44 Urine RBC (Auto) 14.0 /HPF (0.0-6.0) 08/30/17 06:44 U Epithel Cells (Auto) 13.0 /HPF (0-13.0) 08/30/17 06:44 Urine Bacteria (Auto) 1+ /HPF (Negative) 08/30/17 06:44 Hep Bs Antigen Non-reactive (Negative) 08/29/17 13:59 Blood Type A POSITIVE 08/29/17 13:59 Antibody Screen Negative 08/29/17 13:59 Crossmatch See Detail 08/29/17 13:59
[2017-09-01 14:28] LABS: Basophils % (Manual) 0 % (0.0-1.8); RBC Morphology Normal; Total Cells Counted 100
--- NOTE | 2017-09-01 16:34 | Gastroenterology Progress Note ---
Assessment and Plan GI: stable h/h w/o signs bleeding - no plans to scope at this time - ok to d/c from GI standpoint - will sign off, call if needed Subjective Date of service: 09/01/17 Principal diagnosis: Respiratory failure Interval history: - no GI complaints overnight Objective - Constitutional Vitals: Temp Pulse Resp BP Pulse Ox 98.6 F 66 20 145/59 95 09/01/17 12:12 09/01/17 12:12 09/01/17 12:12 09/01/17 12:12 09/01/17 12:12 General appearance: no acute distress - Respiratory Respiratory: bilateral: CTA - Cardiovascular Rhythm: regular Heart Sounds: Present: S1 & S2 - Gastrointestinal General gastrointestinal: Present: soft, non-tender, non-distended - Labs CBC & Chem 7: 09/01/17 13:03 09/01/17 13:03 Labs: Laboratory Results - last 24 hr 08/31/17 08/31/17 08/31/17 14:59 16:53 23:57 WBC RBC Hgb Hct MCV MCH MCHC RDW Lymph % (Auto) [place] % (Auto) Eos % (Auto) Baso % (Auto) Lymph # [place] # Eos # Baso # Add Manual Diff Complete Total Counted 100 Seg Neutrophils % Seg Neuts % (Manual) 71.0 H Band Neutrophils % 0 Lymphocytes % (Manual) 15.0 Reactive Lymphs % (Man) 0 Monocytes % (Manual) 6.0 Eosinophils % (Manual) 7.0 H Basophils % (Manual) 1.0 Metamyelocytes % 0 Myelocytes % 0 Promyelocytes % 0 Blast Cells % 0 Nucleated RBC % Not Reportable Seg Neutrophils # Seg Neutrophils # Man 7.3 Band Neutrophils # 0.0 Lymphocytes # (Manual) 1.5 Abs React Lymphs (Man) 0.0 Monocytes # (Manual) 0.6 Eosinophils # (Manual) 0.7 H Basophils # (Manual) 0.1 Metamyelocytes # 0.0 Myelocytes # 0.0 Promyelocytes # 0.0 Blast Cells # 0.0 WBC Morphology Not Reportable Hypersegmented Neuts Not Reportable Hyposegmented Neuts Not Reportable Hypogranular Neuts Not Reportable Smudge Cells Not Reportable Toxic Granulation Not Reportable Toxic Vacuolation Not Reportable Dohle Bodies Not Reportable Pelger-Huet Anomaly Not Reportable Patrick Rods Not Reportable Platelet Estimate Consistent w auto Clumped Platelets Not Reportable Plt Clumps, EDTA Not Reportable Large Platelets Not Reportable Giant Platelets Not Reportable Platelet Satelliting Not Reportable Plt Morphology Comment Not Reportable RBC Morphology Not Reportable Dimorphic RBCs Not Reportable Polychromasia Not Reportable Hypochromasia Not Reportable Poikilocytosis Not Reportable Anisocytosis 1+ Microcytosis Not Reportable Macrocytosis Not Reportable Spherocytes Not Reportable Pappenheimer Bodies Not Reportable Sickle Cells Not Reportable Target Cells Not Reportable Tear Drop Cells Not Reportable Ovalocytes Not Reportable Helmet Cells Not Reportable [place] Bodies Not Reportable Printer Rings Not Reportable Nguyen Cells Not Reportable Bite Cells Not Reportable Crenated Cell Not Reportable Elliptocytes Not Reportable Acanthocytes (Spur) Not Reportable Rouleaux Not Reportable Hemoglobin C Crystals Not Reportable Schistocytes Not Reportable Malaria parasites Not Reportable Toni Bodies Not Reportable Hem Pathologist Commnt No Sodium Potassium Chloride Carbon Dioxide Anion Gap BUN Creatinine Estimated GFR BUN/Creatinine Ratio Glucose POC Glucose 128 H 145 H Calcium 09/01/17 09/01/17 13:03 13:03 WBC 13.8 H RBC 3.74 Hgb 8.8 L Hct 28.3 L MCV 76 L MCH 24 L MCHC 31 RDW 25.4 H Lymph % (Auto) Sales Architect [place] % (Auto) Sales Architect Eos % (Auto) Sales Architect Baso % (Auto) Sales Architect Lymph # Sales Architect [place] # Sales Architect Eos # Sales Architect Baso # Sales Architect Add Manual Diff Complete Total Counted 100 Seg Neutrophils % Sales Architect Seg Neuts % (Manual) 69.0 Band Neutrophils % 0 Lymphocytes % (Manual) 12.0 L Reactive Lymphs % (Man) 0 Monocytes % (Manual) 13.0 H Eosinophils % (Manual) 6.0 H Basophils % (Manual) 0 Metamyelocytes % 0 Myelocytes % 0 Promyelocytes % 0 Blast Cells % 0 Nucleated RBC % Not Reportable Seg Neutrophils # Sales Architect Seg Neutrophils # Man 9.5 H Band Neutrophils # 0.0 Lymphocytes # (Manual) 1.7 Abs React Lymphs (Man) 0.0 Monocytes # (Manual) 1.8 H Eosinophils # (Manual) 0.8 H Basophils # (Manual) 0.0 Metamyelocytes # 0.0 Myelocytes # 0.0 Promyelocytes # 0.0 Blast Cells # 0.0 WBC Morphology Not Reportable Hypersegmented Neuts Not Reportable Hyposegmented Neuts Not Reportable Hypogranular Neuts Not Reportable Smudge Cells Not Reportable Toxic Granulation Not Reportable Toxic Vacuolation Not Reportable Dohle Bodies Not Reportable Pelger-Huet Anomaly Not Reportable Patrick Rods Not Reportable Platelet Estimate Not Reportable Clumped Platelets Not Reportable Plt Clumps, EDTA Not Reportable Large Platelets Not Reportable Giant Platelets Not Reportable Platelet Satelliting Not Reportable Plt Morphology Comment Not Reportable RBC Morphology Normal Dimorphic RBCs Not Reportable Polychromasia Not Reportable Hypochromasia Not Reportable Poikilocytosis Not Reportable Anisocytosis Not Reportable Microcytosis Not Reportable Macrocytosis Not Reportable Spherocytes Not Reportable Pappenheimer Bodies Not Reportable Sickle Cells Not Reportable Target Cells Not Reportable Tear Drop Cells Not Reportable Ovalocytes Not Reportable Helmet Cells Not Reportable [place] Bodies Not Reportable Printer Rings Not Reportable [place] Cells Not Reportable Bite Cells Not Reportable Crenated Cell Not Reportable Elliptocytes Not Reportable Acanthocytes (Spur) Not Reportable Rouleaux Not Reportable Hemoglobin C Crystals Not Reportable Schistocytes Not Reportable Malaria parasites Not Reportable Toni Bodies Not Reportable Hem Pathologist Commnt No Sodium 136 L Potassium 4.7 Chloride 95.4 L Carbon Dioxide 26 Anion Gap 19 BUN 23 H Creatinine 3.3 H Estimated GFR 17 BUN/Creatinine Ratio 7 Glucose 106 H POC Glucose Calcium 8.4
[2017-09-01 17:30] LABS: Eosinophils % (Auto) 4.7 % (0.0-4.3); Lymphocytes % (Auto) 17.1 % (13.4-35.0); Mean Platelet Volume 8.5 fl (6-12); Monocytes % (Auto) 11.2 % (0.0-7.3); Platelet Count 212 K/mm3 (140-440)
[2017-09-01 17:31] LABS: Basophils % (Auto) 0.7 % (0.0-1.8); Eosinophils # (Auto) 0.6 K/mm3 (0.0-0.4); Lymphocytes # (Auto) 2.2 K/mm3 (1.2-5.4); Monocytes # (Auto) 1.5 K/mm3 (0.0-0.8)
[2017-09-01 17:32] LABS: Basophils # (Auto) 0.1 K/mm3 (0.0-0.1)
--- NOTE | 2017-09-02 09:23 | Progress Note ---
Subjective Principal diagnosis: Respiratory failure Interval history: Patient was seen today for follow-up on multiple renal related issues Events of this hospitalization noted Patient denies having any chest pain pressure or shortness of breath Vitals labs intake output medications were reviewed Social history: Reviewed Allergies: Reviewed Family history: Reviewed Physical examination HEENT: Oral mucosa moist no pallor or icterus Neck: Supple no JVD Chest: Clear to auscultation anteriorly CVS: Regular rate and rhythm S1 and S2 heard Abdomen: Soft nontender no suprapubic masses no organomegaly appreciable Extremity: Dry skin less than 1+ peripheral edema Musculoskeletal: No joint effusion noted in knees and ankle Neurological: Alert awake Dermatology: No petechial rashes Psychiatry: No evidence of any agitation and aggression noted Assessment and plan End-stage renal disease: Patient is currently on maintenance hemodialysis on Monday, ultrafiltration only as tolerated Outpatient dialysis facility has been arranged at [facility] Respiratory failure felt to be hypoxic variety due to pulmonary hypertension as well as edema judicious ultrafiltration with hemodialysis fluid restriction sodium restriction diet lifestyle changes discussed anemia in end-stage renal disease: To monitor and follow Secondary hyperparathyroidism check phosphorus and PTH level periodically High-protein diet due to dialysis status Adequately counseled and educated regarding dialysis diet Patient was adequately counseled and educated regarding multiple renal related issues Pertinent lab findings were discussed with patient, patient does exhibit good understanding of renal issues We'll continue to follow and make recommendation from renal standpoint Objective - Vital Signs Vital signs: Vital Signs - 12hr 09/01/17 09/01/17 09/02/17 22:10 23:51 00:11 Temperature 98.4 F Pulse Rate 71 69 Respiratory 18 18 Rate Blood Pressure 113/47 O2 Sat by Pulse 95 94 95 Oximetry 09/02/17 09/02/17 03:54 07:48 Temperature 98.2 F Pulse Rate 67 75 Respiratory 18 Rate Blood Pressure 136/64 140/64 O2 Sat by Pulse 100 96 Oximetry - Lab 09/01/17 13:03 09/01/17 13:03 Most recent lab results Calcium 8.4 mg/dL (8.4-10.2) 09/01/17 13:03
--- NOTE | 2017-09-02 09:26 | Discharge Summary ---
Providers - Providers Date of Admission: 08/26/17 12:59 Date of discharge: 09/02/17 Attending physician: NAYELY STEVENS 08/26/17 11:31 Consult to Physician [CONS] Routine Consulting Provider: KINZA CHAVEZ Reason For Exam: respiratory failure on bipap Place consult to:: Dr. Chavez Notified:: yes Phone number called:: overhead page Was contact made?: Yes If yes, spoke with:: Dr. Chavez Time called:: 13:22 08/26/17 11:37 Consult to Physician [CONS] Routine Consulting Provider: KENNEDY WERNER Reason For Exam: acute on chronic renal failure, cr 6.6, your pt Place consult to:: answering service Notified:: yes Phone number called:: [phone] Was contact made?: Yes If yes, spoke with:: Raven Time called:: 13:30 08/29/17 08:20 Consult to Physician [CONS] Routine Consulting Provider: KARIME CABEZAS Reason For Exam: permcath placement today Place consult to:: spoke with Dylan Notified:: Ely DELCID Was contact made?: Yes If yes, spoke with:: Dylan Time called:: 08:15 08/29/17 09:18 Consult to Case Management [CONS] Routine Services Needed at Discharge: Other Notified:: Case management Comment:: outpatient dialysis arrangement 08/30/17 10:48 Physical Therapy Evaluation and Treat [CONS] Routine Comment: Reason For Exam: deconditioning 08/31/17 11:03 Physical Therapy Evaluation and Treat [CONS] Routine Comment: Reason For Exam: deconditioning 08/31/17 11:07 Consult to Physician [CONS] Routine Consulting Provider: MARIA LUISA GIBSON Reason For Exam: anemia Place consult to:: gi Notified:: office Phone number called:: [phone] Was contact made?: Yes If yes, spoke with:: nathaly Time called:: 11:22 Primary care physician: MGMT SPECIALIST Hospitalization Reason for admission: sob Condition: Stable Hospital course: Patient is a 66-year-old woman with a past medical history of Diabetes mellitus with chronic venous leg stasis, penicillin allergy, morbid obesity, CHF, COPD, type 2 diabetes mellitus, obstructive sleep apnea on CPAP, hypertension and chronic renal insufficiency stage 4 who presented to [facility] ED with acute severe constant shortness of breath associated with a nonproductive cough. The patient was admitted with diagnosis of acute hypoxic respiratory failure secondary to pulmonary edema, STEPHEN, anemia and +/-pulmonary hypertension and acute kidney injury secondary to hypoperfusion related to anemia and progression of CKD to ESRD. The patient was treated with aggressive IV diuresis with significant improvement with dyspnea. However, patient's BUN/ creatinine continue to rise and showed evidence of progression to ESRD. Conversations were obtained with the patient with regards to hemodialysis. Vascular surgery was consulted for PermCath placement which was completed and dialysis was initiated. Patient was seen by nephrology and pulmonary consultation during hospital stay. Patient was also seen by GI with regards to the anemia. Patient received PRBCs. GI felt that the H&H was stable with no signs of bleeding and no plans to scope at this time. Patient was seen by physical therapy prior to discharge and recommended home health PT. Case management was counseled with regards to outpatient dialysis and placement was arranged at [facility]. Pulmonary also recommended compliance with CPAP for STEPHEN at home. Dedicated discharge time 35 minutes. Disposition: DC-01 TO HOME OR SELFCARE Time spent for discharge: 35 - Discharge Diagnoses (1) Acute on chronic renal failure Status: Acute (2) COPD exacerbation Status: Acute (3) Diabetes Status: Acute (4) ESRD on hemodialysis Status: Acute (5) HTN (hypertension) Status: Acute (6) Morbid obesity Status: Acute (7) Sleep apnea Status: Acute (8) Accelerated hypertension Status: Acute (9) Pulmonary hypertension Status: Acute Core Measure Documentation - Palliative Care Palliative Care/ Comfort Measures: Not Applicable - Core Measures Any of the following diagnoses?: none Exam - Constitutional Vitals: Temp Pulse Resp BP Pulse Ox 98.2 F 75 18 140/64 96 09/02/17 03:54 09/02/17 07:48 09/02/17 03:54 09/02/17 07:48 09/02/17 07:48 General appearance: Present: no acute distress, well-nourished - EENT Eyes: Present: PERRL ENT: hearing intact, clear oral mucosa - Neck Neck: Present: supple, normal ROM - Respiratory Respiratory effort: normal Respiratory: bilateral: CTA - Cardiovascular Heart Sounds: Present: S1 & S2. Absent: rub, click - Extremities Extremities: pulses symmetrical, No edema Peripheral Pulses: within normal limits - Abdominal General gastrointestinal: Present: soft, non-tender, non-distended, normal bowel sounds Female genitourinary: Present: normal - Integumentary Integumentary: Present: clear, warm, dry - Musculoskeletal Musculoskeletal: gait normal, strength equal bilaterally - Psychiatric Psychiatric: appropriate mood/affect, intact judgment & insight - Neurologic Neurologic: CNII-XII intact, moves all extremities Plan Activity: no restrictions Weight Bearing Status: Weight Bear as Tolerated Diet: low fat, low cholesterol, low salt Follow up with: JEREL HANSON MD [Staff Physician] - 7 Days PRIMARY CARE, [Primary Care Provider] - 3-5 Days SACHA CHAPMAN MD [Staff Physician] - 7 Days KINZA CHAVEZ MD [Staff Physician] - 7 Days TORIE VELASQUEZ MD [Staff Physician] - 7 Days Prescriptions: amLODIPine [Norvasc] 10 mg PO DAILY #14 tablet Epoetin [place] 10,000 Unit [Procrit] 10,000 unit IV JUJU PRN #30 vial PRN Reason: Hemodialysis Famotidine [Pepcid] 20 mg PO DAILY #30 tablet Gabapentin [Neurontin] 300 mg PO BID #60 capsule hydrALAZINE [Apresoline TAB] 50 mg PO BID #60 tablet HYDROcodone/APAP 7.5-325 [[place] 7.5-325 mg TAB] 1 each PO Q6HR PRN #14 tablet PRN Reason: Pain Oxybutynin [Ditropan] 5 mg PO BID #60 tablet
[2017-09-02] MEDS: PEPCID PO SCH (11:12)
[2017-09-02] MEDS: DITROPAN PO SCH (11:13)
[2017-09-02] MEDS: NORVASC PO SCH (11:13)
[2017-09-02] MEDS: NEURONTIN PO SCH (11:13)
[2017-09-02] MEDS: LASIX IV SCH (11:14)
[2017-09-02] MEDS: APRESOLINE PO SCH (11:14)
--- NOTE | 2017-09-02 12:25 | Vascular Lab Report ---
Upper extremity vein mapping Reason for exam: Preoperative evaluation for hemodialysis access Comments: On the right, the cephalic vein is usable from wrist to shoulder. The basilic vein is usable from wrist to shoulder. The brachial and radial arteries are patent. The radial artery is smaller than expected with an elevated velocity of 223 cm per sec. Clinical significance is unknown. On the left, the cephalic vein is usable from wrist to shoulder. The basilic vein is usable from wrist to shoulder although it gets appreciably smaller near the wrist. The brachial and radial arteries are patent. The radial artery is smaller than expected. Impression: Both cephalic veins are suitable for use as AV access sites. Both basilic veins are suitable for use as AV access sites. The right radial artery has an elevated velocity in relatively small caliber. Clinical correlation recommended. The left radial artery is smaller than expected at the level of the wrist.
[2017-09-02] MEDS: PROCRIT IV PRN (14:12)
[2017-09-02] MEDS: HEPARIN IV PRN (14:14)
[2017-09-02 19:55] VITALS: BP 160/68
== END 2017-09-02 19:45 | disposition home or self-care (01) | DRG 673 ==
LOC: ED 08:55 → 4A 12:59
PROVIDERS: ADMIT Internal Medicine; ATTEND Hospitalist
PROC: 5A09357 Assistance with Respiratory Ventilation, Less than 24 Consecutive Hours, Continuous Positive Airway Pressure (ICD-10-PCS; 2017-08-26)
PROC: 30233N1 Transfusion of Nonautologous Red Blood Cells into Peripheral Vein, Percutaneous Approach (ICD-10-PCS; 2017-08-26)
PROC: 5A09357 Assistance with Respiratory Ventilation, Less than 24 Consecutive Hours, Continuous Positive Airway Pressure (ICD-10-PCS; 2017-08-27)
PROC: 5A09357 Assistance with Respiratory Ventilation, Less than 24 Consecutive Hours, Continuous Positive Airway Pressure (ICD-10-PCS; 2017-08-28)
PROC: 0JH63XZ Insertion of Tunneled Vascular Access Device into Chest Subcutaneous Tissue and Fascia, Percutaneous Approach (ICD-10-PCS; principal; 2017-08-29)
PROC: 02H633Z Insertion of Infusion Device into Right Atrium, Percutaneous Approach (ICD-10-PCS; 2017-08-29)
PROC: B244ZZZ Ultrasonography of Right Heart (ICD-10-PCS; 2017-08-29)
PROC: 5A09357 Assistance with Respiratory Ventilation, Less than 24 Consecutive Hours, Continuous Positive Airway Pressure (ICD-10-PCS; 2017-08-29)
PROC: 5A1D70Z Performance of Urinary Filtration, Intermittent, Less than 6 Hours Per Day (ICD-10-PCS; 2017-08-29)
PROC: 5A09357 Assistance with Respiratory Ventilation, Less than 24 Consecutive Hours, Continuous Positive Airway Pressure (ICD-10-PCS; 2017-08-30)
PROC: 5A1D70Z Performance of Urinary Filtration, Intermittent, Less than 6 Hours Per Day (ICD-10-PCS; 2017-08-30)
PROC: 5A09357 Assistance with Respiratory Ventilation, Less than 24 Consecutive Hours, Continuous Positive Airway Pressure (ICD-10-PCS; 2017-08-31)
PROC: 5A1D70Z Performance of Urinary Filtration, Intermittent, Less than 6 Hours Per Day (ICD-10-PCS; 2017-08-31)
PROC: 5A09357 Assistance with Respiratory Ventilation, Less than 24 Consecutive Hours, Continuous Positive Airway Pressure (ICD-10-PCS; 2017-09-01)
PROC: 5A09357 Assistance with Respiratory Ventilation, Less than 24 Consecutive Hours, Continuous Positive Airway Pressure (ICD-10-PCS; 2017-09-02)
PROC: 5A1D70Z Performance of Urinary Filtration, Intermittent, Less than 6 Hours Per Day (ICD-10-PCS; 2017-09-02)
DX: N17.9 Acute kidney failure, unspecified (principal); I50.33 Acute on chronic diastolic (congestive) heart failure; J96.01 Acute respiratory failure with hypoxia; I13.0 Hypertensive heart and chronic kidney disease with heart failure and stage 1 through stage 4 chronic kidney disease, or unspecified chronic kidney disease; Z68.42 Body mass index [BMI] 45.0-49.9, adult; J44.1 Chronic obstructive pulmonary disease with (acute) exacerbation; N18.6 End stage renal disease; N25.81 Secondary hyperparathyroidism of renal origin; I27.20 Pulmonary hypertension, unspecified; D63.1 Anemia in chronic kidney disease; Z96.652 Presence of left artificial knee joint; G47.33 Obstructive sleep apnea (adult) (pediatric); E11.22 Type 2 diabetes mellitus with diabetic chronic kidney disease; D50.9 Iron deficiency anemia, unspecified; E66.01 Morbid (severe) obesity due to excess calories; Z99.2 Dependence on renal dialysis; Z88.0 Allergy status to penicillin; Z82.49 Family history of ischemic heart disease and other diseases of the circulatory system; Z83.3 Family history of diabetes mellitus; Z90.89 Acquired absence of other organs; Z79.899 Other long term (current) drug therapy; Z79.82 Long term (current) use of aspirin; Z79.52 Long term (current) use of systemic steroids; Z79.4 Long term (current) use of insulin; Z87.891 Personal history of nicotine dependence
CPT/HCPCS: 36415; 36558; 71045; 76770; 77001; 80048; 80061; 81001; 82550; 82553; 82962; 83880; 84484; 85007; 85025; 86706; 86850; 86900; 86901; 86920; 87040; 93005; 93010; 93306; 94640; 94660; 94760; 96374; 96375; C1750; G8978-GP; G8979-GP; J0885; J1644; J1940; J2250; J3010; J3370; J7030; J7040; J7050; P9016

== ENCOUNTER 2017-10-13 05:44 | Day surgery (SDC) | payer MEDICARE ==
[2017-10-13] MEDS ORDERED: VERSED IV NR (06:00)
[2017-10-13] MEDS ORDERED: VANCOMYCIN/NS 1 GM/250 ML 1 GM/250 ML BAG IV NR (06:00)
[2017-10-13] MEDS ORDERED: NACL 0.9% 1000 ML 1,000 ML IV SCH (06:00)
[2017-10-13] MEDS ORDERED: NACL BACTERIOSTATIC INFILTRATI ONE (06:20)
[2017-10-13] MEDS ORDERED: VANCOMYCIN/0.45 NS 1 GM/250 ML 1 GM/250 ML BAG IV ONE (07:00)
[2017-10-13] MEDS ORDERED: MARCAINE 0.5% 30 ML INFILTRATI ONE (07:10)
[2017-10-13] MEDS ORDERED: GELFOAM TP ONE ×2 (07:10→07:57)
[2017-10-13] MEDS ORDERED: HEPARIN 10,000 UNITS/10 ML ONE (07:10)
[2017-10-13] MEDS ORDERED: THROMBIN (BOVINE) TP ONE ×2 (07:10→07:57)
[2017-10-13] MEDS ORDERED: NACL 0.9% 250ML 500 ML ONE (07:11)
[2017-10-13 07:22] LABS: Hematocrit 35.8 % (30.3-42.9); Hemoglobin 11.6 gm/dl (10.1-14.3); Mean Corpuscular HGB Conc 32 % (30-34); Mean Corpuscular Hemoglobin 25 pg (28-32); Mean Corpuscular Volume 77 fl (79-97); Platelet Count 205 K/mm3 (140-440); Red Blood Count 4.63 M/mm3 (3.65-5.03); Red Cell Distribution Width 24.9 % (13.2-15.2)
[2017-10-13 07:34] LABS: Calcium 9.1 mg/dL (8.4-10.2)
--- NOTE | 2017-10-13 07:36 | Anesthesia Consultation ---
Anesthesia Consult and Med Hx Date of service: 10/13/17 - Airway Anesthetic Teeth Evaluation: Poor (missing) ROM Head & Neck: Adequate Mental/Hyoid Distance: Adequate Mallampati Class: Class II Intubation Access Assessment: Probably Good - Pulmonary Exam CTA: Yes - Cardiac Exam Cardiac Exam: RRR - Pre-Operative Health Status ASA Pre-Surgery Classification: ASA4 Proposed Anesthetic Plan: General - Pulmonary Hx Smoking: Yes (Past hx) COPD: Yes Hx Sleep Apnea: Yes (on CPAP) - Cardiovascular System Hx Hypertension: Yes Hx Peripheral Vascular Disease: Yes - Central Nervous System Hx Psychiatric Problems: No - Endocrine Hx End Stage Renal Disease: Yes (on HD. M/W/. last HD on mon) Hx Non-Insulin Dependent Diabetes: Yes - Hematic Hx Anemia: Yes - Other Systems Hx Cancer: No Hx Obesity: Yes - Additional Comments Anesthesia Medical History Comments: CHF EF 60%
--- NOTE | 2017-10-13 07:36 | Anesthesia Day of Surgery ---
Anesthesia Day of Surgery - Day of Surgery Patient Examined: Yes Patient H&P Reviewed: Yes Patient is NPO: Yes
[2017-10-13] MEDS ORDERED: XYLOCAINE CARDIAC IV ONE (07:54)
[2017-10-13] MEDS ORDERED: SUBLIMAZE ONE (07:54)
[2017-10-13] MEDS ORDERED: ZOFRAN ONE ×2 (07:54→11:21)
[2017-10-13] MEDS ORDERED: RIFADIN ONE (07:55)
[2017-10-13] MEDS ORDERED: ePHEDrine SULFATE ONE ×2 (07:55→09:24)
[2017-10-13] MEDS ORDERED: DIPRIVAN 10 MG/ML IV ONE (07:55)
[2017-10-13] MEDS ORDERED: NACL 0.9% IR ONE (07:57)
[2017-10-13] MEDS ORDERED: HEPARIN 10,000 UNITS/10 ML IR ONE (07:57)
[2017-10-13] MEDS ORDERED: RIFADIN IV ONE (07:57)
[2017-10-13] MEDS ORDERED: NACL 0.9% 250ML IR ONE (07:57)
[2017-10-13 08:50] LABS: Basophils % (Manual) 0 % (0.0-1.8); Total Cells Counted 100
[2017-10-13 08:51] LABS: Anisocytosis 1+; Hypochromasia 1+; Ovalocytes Few; Platelet Estimate Consistent w Auto; Target Cells Few; Tear Drop Cells Rare
--- NOTE | 2017-10-13 10:23 | Short Stay Summary ---
Short Stay Documentation Date of service: 10/13/17 - History H&P: obtained from office - Allergies and Medications Current Medications: Allergies Penicillins Allergy (Verified 10/11/17 13:22) Rash Home Medications Medication Instructions Recorded Confirmed Last Taken Type Gabapentin [Neurontin] 300 mg PO BID #60 capsule 09/02/17 10/13/17 10/12/17 12: 00 Rx HYDROcodone/APAP 7.5-325 [[place] 1 each PO Q6HR PRN #14 tablet 09/02/17 10/11/17 Unknown Rx 7.5-325 mg TAB] amLODIPine [Norvasc] 10 mg PO DAILY #14 tablet 09/02/17 10/13/17 10/12/17 21:00 Rx hydrALAZINE [Apresoline TAB] 50 mg PO BID #60 tablet 09/02/17 10/13/17 10/13/17 04:00 Rx Oxybutynin [Ditropan] 5 mg PO DAILY 10/11/17 10/13/17 10/12/17 09:00 History Vit B Complx C/Folic Acid/Zinc 1 tab PO DAILY 10/11/17 10/13/17 10/12/17 09:00 History [Dialyvite 800-Zinc 15 mg Tab] glyBURIDE [Glyburide] 5 mg PO DAILY 10/11/17 10/13/17 10/12/17 09:00 History Active Medications Fentanyl (Sublimaze) 50 mcg IV Q5MIN PRN PRN Reason: Pain , Severe (7-10) Stop: 10/13/17 23:59 Sodium Chloride (Nacl 0.9% 1000 Ml) 1,000 mls @ 42 mls/hr IV DIRECT [place] Last Admin: 10/13/17 07:10 Dose: 42 mls/hr Vancomycin HCl (Vancomycin/Ns 1 Gm/250 Ml) 1 gm in 250 mls @ 166.667 mls/hr IV PREOP NR; Protocol Stop: 10/13/17 23:59 Last Admin: 10/13/17 07:50 Dose: 166.667 mls/hr Midazolam HCl (Versed) 2 mg IV PREOP NR Stop: 10/13/17 23:59 - Brief post op/procedure progress note Date of procedure: 10/13/17 Pre-op diagnosis: ESRD Post-op diagnosis: same Procedure: Creation of AVG LUE (Brachial artery to axillary vein, 6mm bovine graft) Anesthesia: BRINDAA Surgeon: KRISTEN HIGUERA Oil Transport Driver: SALLY SCHMIDT Estimated blood loss: minimal Pathology: none Condition: stable - Hospital course Hospital course: Uneventful - Disposition Condition at discharge: Stable Disposition: DC-01 TO HOME OR SELFCARE - Discharge Diagnoses (1) ESRD (end stage renal disease) Status: Acute Short Stay Discharge Plan Activity: advance as tolerated Weight Bearing Status: Weight Bear as Tolerated Diet: renal Wound: keep clean and dry Follow up with: KRISTEN HIGUERA MD [Staff Physician] - 14 Days Prescriptions: HYDROcodone/APAP 5-325 [[place] 5/325] 1 each PO Q4HR PRN #20 tablet PRN Reason: Pain
--- NOTE | 2017-10-13 10:30 | Operative Report ---
Operative Report Operative Report: Date of procedure: 10/13/2017 Pre-operative diagnosis: End-stage renal failure Post-operative diagnosis: Same Procedure name(s): Left upper extremity brachial artery to axillary vein bridge graft using 6 mm bovine graft Surgeon: Ad Garvey MD Capacitor Repairer: [Bartolo Petty PA-C] Anesthesia: Local MAC EBL: Less than 50 mL Operative indication: Patient is a 56-year-old woman with end-stage renal failure and need for long-term hemodialysis access. Findings: Excellent thrill in the arteriovenous graft at the end of the procedure. And 2+ left radial pulse. Procedure: The patient was placed on the table in the supine position. The arm was prepped with ChloraPrep solution and draped in the usual sterile fashion. I used real-time ultrasound to examine the left upper extremity while the patient was under anesthesia. A tourniquet had been placed at the proximal left arm. The brachial artery appeared to be of adequate caliber above the elbow at about 5 mm with minimal atherosclerotic change. The basilic vein in the upper arm was patent but less than 5 mm in diameter even with a tourniquet. The cephalic vein in the upper arm was about 4 mm in diameter but it was more than 2 cm deep in the soft tissue and actually didn't make him of adequate caliber until several centimeters above the elbow. There was an antebrachial vein in the middle of the forearm which was about 4 mm in diameter. However it did not come close to the radial artery which was also small. Overall, there did not appear to be a reasonable solution for fistula in the arm. Under local anesthesia, an incision was made just above the elbow. Dissection was carried out to identify the brachial artery. The brachial artery was surrounded with Vesseloops proximally and distally. The brachial artery was approximately 5 mm in diameter. A second incision was made in the axilla and dissection was carried out to identify the axillary vein. This vein was also at least 7 mm in diameter. Vessel loops were placed proximally and distally. I should note that the wounds were infiltrated with half percent Marcaine and epinephrine prior to incision. The bovine graft was prepped according to the IFU. A tunnel was created in the upper arm between the 2 incisions using a Lisa-Wick tunneler. The graft was anastomosed to the axillary vein in an end to side fashion using running 6-0 Prolene. The arterial anastomosis was completed in an end-to-side fashion. The arteriotomy was approximate 5 mm in length. A Katharina catheter was used to break the spasm in the brachial artery proximally and distally to the anastomosis. The anastomosis is completed and flow was started into the arteriovenous graft with the development of an immediate and excellent thrill along the body of the graft. The left radial pulse remained palpable. Meticulous hemostasis was obtained. Closure was done with 3-0 Vicryl on the subcutaneous tissues tissue and 4-0 PDS on the subcuticular tissue. Sterile dressings were applied. The patient tolerated the procedure well. There was an easily palpable left radial pulse at the end of the procedure. There was a good thrill in the graft at the end of the procedure. Sponge, needle, and instrument counts were reported as correct. The patient was taken from the operating room to the recovery room in stable condition.
[2017-10-13] MEDS: SUBLIMAZE IV PRN ×2 (10:51→11:02)
[2017-10-13] MEDS ORDERED: ZOFRAN IV ONE (12:00)
[2017-10-13 12:53] VITALS: BP 120/55
--- NOTE | 2017-10-13 13:06 | Post Anesthesia Evaluation ---
- Post Anesthesia Evaluation Patient Participated: Yes Airway Patent: Yes Stable Respiratory Function: Yes Nausea/Vomiting: No Temp > 96.8F: Yes Pain Manageable: Yes Adequeate Hydration: Yes Anesthesia Complications: No
== END 2017-10-13 12:55 | disposition home or self-care (01) ==
LOC: OR 05:44
PROVIDERS: ATTEND Surgery Vascular Surgery
DX: I12.0 Hypertensive chronic kidney disease with stage 5 chronic kidney disease or end stage renal disease (principal); E11.22 Type 2 diabetes mellitus with diabetic chronic kidney disease; N18.6 End stage renal disease; Z99.2 Dependence on renal dialysis; E11.51 Type 2 diabetes mellitus with diabetic peripheral angiopathy without gangrene; Z87.891 Personal history of nicotine dependence; J44.9 Chronic obstructive pulmonary disease, unspecified; G47.00 Insomnia, unspecified; E66.9 Obesity, unspecified; D64.9 Anemia, unspecified
CPT/HCPCS: 36415; 36830; 80048; 85007; 85025; A4649; C1757; C1768; J1644; J2001; J2405; J2704; J3010; J3370; J3490; J7030; J7050

== ENCOUNTER 2018-11-21 11:43 | Inpatient (IN) | payer MEDICARE ==
--- NOTE | 2018-11-21 12:48 | Emergency Department Report ---
HPI - General Chief Complaint: Syncope Time Seen by Provider: 11/21/18 12:29 - HPI HPI: Room 4 The patient is a 67-year-old female presenting with chief complaint of syncope. The patient states she had finished hemodialysis was sitting outside in a chair when she began to feel "icky." The patient states she felt slightly short of breath as though she was about to pass out. The patient then awakened in the same chair with multiple people around her and informed her that she had lost consciousness. The patient states she had an episode of nausea and vomiting and when she stood up she had low back pain and her legs felt "rubbery." Patient denied ever having chest pain or pleurisy. When asked how she is feeling currently the patient says she feels okay. Location: [See above] Duration: [See above] Quality: Syncope Severity: Moderate Modifying factors: [see above] Context: [see above] Mode of transportation: [not driving] ED Past Medical Hx - Past Medical History Hx Hypertension: Yes Hx Congestive Heart Failure: Yes Hx Diabetes: Yes Hx Renal Disease: Yes Hx Arthritis: Yes Hx COPD: Yes - Surgical History Additional Surgical History: Left knee surgery, Abd hernia repair - Family History Family history: no significant - Social History Smoking Status: Former Smoker (none 28 years) Substance Use Type: None - Medications Home Medications: Home Medications Medication Instructions Recorded Confirmed Last Taken Type amLODIPine [Norvasc] 10 mg PO DAILY #14 tablet 09/02/17 11/21/18 10/12/17 21:00 Rx Vit B Complx C/Folic Acid/Zinc 1 tab PO DAILY 10/11/17 11/21/18 10/12/17 09:00 History [Dialyvite 800-Zinc 15 mg Tab] HYDROcodone/APAP 5-325 [[place] 1 each PO Q4HR PRN #20 tablet 10/13/17 11/21/18 Unknown Rx 5/325] Aspirin [Aspirin BABY CHEW TAB] 81 mg PO QDAY 11/21/18 11/21/18 Unknown History Calcium Carbonate/Vitamin D3 1 each PO BID 11/21/18 11/21/18 Unknown History [Os-Larry 500+D3 Caplet] Ferric Citrate (Nf) [Auryxia] 210 mg PO DAILY 11/21/18 11/21/18 Unknown History Gabapentin [Neurontin] 600 mg PO BID 11/21/18 11/21/18 Unknown History glyBURIDE [Glyburide] 1.25 mg PO DAILY 11/21/18 11/21/18 Unknown History hydrALAZINE [Apresoline] 25 mg PO BID 11/21/18 11/21/18 Unknown History traMADol [Ultram] 50 mg PO Q6HR PRN 11/21/18 11/21/18 Unknown History ED Review of Systems ROS: Stated complaint: PAIN R/L SIDES Other details as noted in HPI Constitutional: no symptoms reported Eyes: denies: eye pain ENT: denies: throat pain Respiratory: shortness of breath Cardiovascular: denies: chest pain Endocrine: no symptoms reported Gastrointestinal: nausea, vomiting. denies: abdominal pain Musculoskeletal: back pain Neurological: denies: headache Physical Exam - Physical Exam Vital Signs: Vital Signs 11/21/18 12:21 Temperature 97.5 F L Pulse Rate 76 Respiratory 20 Rate Blood Pressure 125/59 O2 Sat by Pulse 98 Oximetry Physical Exam: GENERAL: The patient is well-developed well-nourished female lying on stretcher not appearing to be in acute distress. [] HEENT: Normocephalic. Atraumatic. Extraocular motions are intact. Patient has moist mucous membranes. NECK: Supple. Trachea midline CHEST/LUNGS: Clear to auscultation. There is no respiratory distress noted. HEART/CARDIOVASCULAR: Regular. There is no tachycardia. There is no gallop rub or murmur. ABDOMEN: Abdomen is soft, nontender. Patient has normal bowel sounds. There is no abdominal distention. SKIN: There is no rash. There is no edema. There is no diaphoresis. NEURO: The patient is awake, alert, and oriented. The patient is cooperative. The patient has no focal neurologic deficits. The patient has normal speech. Cranial nerves II through XII grossly intact MUSCULOSKELETAL: There is tenderness to palpation of the lumbar spine. ED Course Vital Signs 11/21/18 12:21 Temperature 97.5 F L Pulse Rate 76 Respiratory 20 Rate Blood Pressure 125/59 O2 Sat by Pulse 98 Oximetry ED Medical Decision Making - Lab Data Result diagrams: 11/21/18 Unknown - EKG Data -: EKG Interpreted by Ga EKG shows normal: sinus rhythm Rate: normal - EKG Data When compared to previous EKG there are: previous EKG unavailable Interpretation: other (no ischemic changes seen) - Radiology Data Radiology results: report reviewed (CT lumbar spine, CT head, chest x-ray, VQ scan), image reviewed (chest x-ray CT head, CT lumbar spine, VQ scan) interpreted by me: Chest x-ray-no focal infiltrates, no pneumothorax [facility] [address] [place] [address] Cat Scan Report Signed Patient: RADHA JAY MR#: [id number] : 1950 Acct:[id number] Age/Sex: 67 / F ADM Date: 11/21/18 Loc: ED Attending Dr: Ordering Physician: LEA GARCIA MD Date of Service: 11/21/18 Procedure(s): CT lumbar spine wo con Accession Number(s): [id number] cc: LEA GARCIA MD PROCEDURE: CT LUMBAR SPINE WO CON TECHNIQUE: Computerized axial tomography of the lumbar spine was performed from T12 to the sacrum without contrast material. Coronal and sagittal reconstructed imaging provided. This study is performed without intravenous contrast and the sensitivity for pathology, including neoplasms, adenopathy, abscess, inflammation and infection is reduced. CT DOSE LENGTH PRODUCT: 1126.8 mGy-cm. HISTORY: back pain. Surgery performed July 2018 COMPARISONS: None currently available. FINDINGS: Posterior fusion hardware with interbody disc spacer at L4-L5 causes streak artifact. Grossly intact based on the roller shop supervisor images. Partial ankylosis noted. Bilateral laminectomies at L4 and L5. There is no fracture. T9-T12: Minimal bulge. Bilateral facet arthropathy. No significant canal or foraminal narrowing. T12-L1: Symmetrical bulge. Bilateral facet arthropathy. No significant canal or foraminal narrowing. L1-L2: Small right central discussed by protrusion measures 3.3 mm. No significant canal or foraminal narrowing. L2-L3: Symmetrical bulge. Bilateral facet arthropathy and ligament flavum hypertrophy. Mild spinal canal narrowing. Mild to moderate left foraminal narrowing. Mild right foraminal narrowing. L3-L4: Symmetrical bulge. Bilateral facet arthropathy and ligamentum flavum hypertrophy. Mild to moderate spinal canal narrowing. Mild bilateral foraminal narrowing. L4-L5: Anterior subluxation. Streak artifact limits evaluation. L5-S1: Left asymmetrical disc osteophyte complex. Prominent left lateral osteophyte. Bilateral facet arthropathy and ligament flavum hypertrophy. Mild spinal canal narrowing. Moderate left foraminal narrowing. Mild to moderate right foraminal narrowing. Prevertebral soft tissue structures are unremarkable. There is no abdominal aortic aneurysm. Moderate aortic atherosclerotic disease. SI joints are unremarkable. No sacral fracture. IMPRESSION: * Intact post surgical changes and hardware. * No fracture. * Multilevel degenerative discs. This document is electronically signed by Irvin Kelly MD., Nov 21 2018 02:19:48 PM ET Transcribed By: TYM Dictated By: IRVIN KELLY MD Electronically Authenticated By: IRVIN KELLY MD Signed Date/Time: 11/21/18 142 DD/ 00 TD/TT: 11/21/181400 [place] [address] Cat Scan Report Signed Patient: RADHA JAY MR#: [id number] : 1950 Acct:[id number] Age/Sex: 67 / F ADM Date: 11/21/18 Loc: ED Attending Dr: Ordering Physician: LEA GARCIA MD Date of Service: 11/21/18 Procedure(s): CT head/brain wo con Accession Number(s): [id number] cc: LEA GARCIA MD PROCEDURE: CT HEAD/BRAIN WO CON TECHNIQUE: Computerized tomography of the head was performed without contrast material. CT DOSE LENGTH PRODUCT: 920.5 mGy-cm. HISTORY: syncope COMPARISONS: None currently available. FINDINGS: There is no evidence for acute ischemia. There is no hemorrhage. There is no midline shift. There is no hydrocephalus. There is no mass. Age appropriate lacey-white matter attenuation is noted. There is no calvarial fracture. The temporal bones demons trate aerated mastoid air cells. The middle ears appear unremarkable. Paranasal sinuses are unremarkable. Globes are intact. IMPRESSION: * No acute intracranial findings. This document is electronically signed by Irvin Kelly MD., Nov 21 2018 02:20:37 PM ET Transcribed By: TYM Dictated By: IRVIN KELLY MD Electronically Authenticated By: IRVIN KELLY MD Signed Date/Time: 11/21/181421 DD/ 00 TD/TT: 11/21/181400 [facility] [address] [place] [address] Nuclear Medicine Report Signed Patient: RADHA JAY MR#: [id number] : 1950 Acct:[id number] Age/Sex: 67 / F ADM Date: 11/21/18 Loc: ED Attending Dr: Ordering Physician: LEA GARCIA MD Date of Service: 11/21/18 Procedure(s): NM lung scan perf/vent Accession Number(s): [id number] cc: LEA GARCIA MD LUNG SCAN, VENTILATION AND PERFUSION: History: Shortness of breath, syncope. Technique: 5mci of Tc99m MAA was infused for the perfusion images. 15mci XE 133 gas was inhaled for the ventilatory images. Correlation is made with a chest x-ray dated 11/21/18. Findings: Inhalation of Xenon gas demonstrates a normal distribution of the activity throughout both lungs. The wash out phases show mild retention of the radiotracer at the left lung base. After injection of Technetium 99m macroaggregated albumin gamma camera imaging of the lungs in multiple projections demonstrates normal pulmonary contours with a homogeneous distribution of activity. No focal areas of perfusion deficiency are identified. IMPRESSION: Low probability for pulmonary embolus. Transcribed By: TTR Dictated By: RANJAN REID JR, MD Electronically Authenticated By: RANJAN REID JR, MD Signed Date/Time: 11/21/18 1505 DD/ 1505 TD/TT: 11/21/18 1505 - Differential Diagnosis syncope, dysrhythmia, PE, Critical care attestation.: If time is entered above; I have spent that time in minutes in the direct care of this critically ill patient, excluding procedure time. ED Disposition Clinical Impression: Syncope Disposition: -09 OP ADMIT IP TO THIS HOSP Is pt being admited?: Yes Condition: Stable Instructions: Syncope (ED) Referrals: PRIMARY CARE, [Primary Care Provider] - 3-5 Days
[2018-11-21 13:01] LABS: Basophils # (Auto) 0.1 K/mm3 (0.0-0.1); Basophils % (Auto) 0.5 % (0.0-1.8); Eosinophils # (Auto) 0.1 K/mm3 (0.0-0.4); Eosinophils % (Auto) 1.2 % (0.0-4.3); Hematocrit 39.5 % (30.3-42.9); Lymphocytes # (Auto) 1.1 K/mm3 (1.2-5.4); Lymphocytes % (Auto) 9.5 % (13.4-35.0); Mean Corpuscular HGB Conc 33 % (30-34); Mean Corpuscular Volume 89 fl (79-97); Monocytes # (Auto) 1.3 K/mm3 (0.0-0.8); Monocytes % (Auto) 10.8 % (0.0-7.3); Platelet Count 203 K/mm3 (140-440); Red Blood Count 4.45 M/mm3 (3.65-5.03)
[2018-11-21 13:12] LABS: INR 0.87 (0.87-1.13)
[2018-11-21 13:13] LABS: Partial Thromboplastin Time 24.3 Sec. (24.2-36.6)
--- NOTE | 2018-11-21 14:21 | Cat Scan Report ---
PROCEDURE: CT LUMBAR SPINE WO CON TECHNIQUE: Computerized axial tomography of the lumbar spine was performed from T12 to the sacrum wi thout contrast material. Coronal and sagittal reconstructed imaging provided. This study is performed without intravenous contrast and the sensitivity for pathology, including neoplasms, adenopathy, abs cess, inflammation and infection is reduced. CT DOSE LENGTH PRODUCT: 1126.8 mGy-cm. HISTORY: back pain. Surgery performed July 2018 COMPARISONS: None currently available. FINDINGS: Posterior fusion hardware with interbody disc spacer at L4-L5 causes streak artifact. Grossly intact based on the broach trouble shooter images. Partial ankylosis noted. Bilateral laminectomies at L4 and L5. There is no fracture. T9-T12: Minimal bulge. Bilateral facet arthropathy. No significant canal or foraminal narrowing. T12-L1: Symmetrical bulge. Bilateral facet arthropathy. No significant canal or foraminal narrowing. L1-L2: Small right central discussed by protrusion measures 3.3 mm. No significant canal or foraminal narrowing. L2-L3: Symmetrical bulge. Bilateral facet arthropathy and ligament flavum hypertrophy. Mild spinal ca nal narrowing. Mild to moderate left foraminal narrowing. Mild right foraminal narrowing. L3-L4: Symmetrical bulge. Bilateral facet arthropathy and ligamentum flavum hypertrophy. Mild to mode rate spinal canal narrowing. Mild bilateral foraminal narrowing. L4-L5: Anterior subluxation. Streak artifact limits evaluation. L5-S1: Left asymmetrical disc osteophyte complex. Prominent left lateral osteophyte. Bilateral facet arthropathy and ligament flavum hypertrophy. Mild spinal canal narrowing. Moderate left foraminal anthony rowing. Mild to moderate right foraminal narrowing. Prevertebral soft tissue structures are unremarkable. There is no abdominal aortic aneurysm. Moderate aortic atherosclerotic disease. SI joints are unremarkable. No sacral fracture. IMPRESSION: * Intact post surgical changes and hardware. * No fracture. * Multilevel degenerative discs. This document is electronically signed by Irvin Interiano MD., Nov 21 2018 02:19:48 PM ET
--- NOTE | 2018-11-21 14:22 | Cat Scan Report ---
PROCEDURE: CT HEAD/BRAIN WO CON TECHNIQUE: Computerized tomography of the head was performed without contrast material. CT DOSE LENGTH PRODUCT: 920.5 mGy-cm. HISTORY: syncope COMPARISONS: None currently available. FINDINGS: There is no evidence for acute ischemia. There is no hemorrhage. There is no midline shift. There is no hydrocephalus. There is no mass. Age appropriate lacey-white matter attenuation is noted. There is no calvarial fracture. The temporal bones demonstrate aerated mastoid air cells. The middle ears appear unremarkable. Paranasal sinuses are unremarkable. Globes are intact. IMPRESSION: * No acute intracranial findings. This document is electronically signed by Irvin Interiano MD., Nov 21 2018 02:20:37 PM ET
--- NOTE | 2018-11-21 14:51 | XRay Report ---
AP CHEST: HISTORY: Shortness of breath AP view of the chest demonstrates a normal mediastinal and cardiac contour with clear lungs and normal bony and soft tissue structures. IMPRESSION: Unremarkable AP chest.
--- NOTE | 2018-11-21 15:10 | Nuclear Medicine Report ---
LUNG SCAN, VENTILATION AND PERFUSION: History: Shortness of breath, syncope. Technique: 5mci of Tc99m MAA was infused for the perfusion images. 15mci XE 133 gas was inhaled for the ventilatory images. Correlation is made with a chest x-ray dated 11/21/18. Findings: Inhalation of Xenon gas demonstrates a normal distribution of the activity throughout both lungs. The wash out phases show mild retention of the radiotracer at the left lung base. After injection of Technetium 99m macroaggregated albumin gamma camera imaging of the lungs in multiple projections demonstrates normal pulmonary contours with a homogeneous distribution of activity. No focal areas of perfusion deficiency are identified. IMPRESSION: Low probability for pulmonary embolus.
--- NOTE | 2018-11-21 15:43 | History and Physical Report ---
History of Present Illness Chief complaint: confused History of present illness: 67 YO Female with ESRD on HD(M,W,F), OA, COPD, DM, CHF, HTN, Obesity Hypoventilation Syndrome, STEPHEN on CPAP presents to ED for evaluation. Pt was in her usual state of health today and went to her routine scheduled dialysis. Pt reports feeling confused and weak during dialysis, and immediately upon finishing dialysis the patient experienced shortness of breath, worsening confusion, and felt as though she was going to pass out. The patient does not remember any more. Dialysis center staff reports that the patient lost consciousness. EMS notified, and upon arrival the patient was found to be in distress, and transported to [facility]. Pt seen and evaluated in ED and found to have ESRD, Dialysis Disequilibrium Syndrome. Pt admitted to medical floor. Nephrology consulted in ED. No further history obtainable. Pt is confused but is able to protect her airway. Pt does not remember syncopal episode. Pt denies fever, chills, CP, Palpitations, NVD, Trauma, BRBPR, Productive cough, hemoptysis, prolonged travel/immobility, unilateral leg swelling, individual/family history of DVT/PE/Blood Clotting Disorders. Past History Past Medical History: COPD, diabetes, ESRD, heart failure, hypertension Past Surgical History: hernia repair, total knee replacement, Other (dialysis Access) Social history: . denies: smoking, alcohol abuse, prescription drug abuse Family history: hypertension Medications and Allergies Allergies Allergy/AdvReac Type Severity Reaction Status Date / Time Penicillins Allergy Rash Verified 10/11/17 13:22 Home Medications Medication Instructions Recorded Confirmed Last Taken Type amLODIPine [Norvasc] 10 mg PO DAILY #14 tablet 09/02/17 11/21/18 10/12/17 21:00 Rx Vit B Complx C/Folic Acid/Zinc 1 tab PO DAILY 10/11/17 11/21/18 10/12/17 09:00 History [Dialyvite 800-Zinc 15 mg Tab] HYDROcodone/APAP 5-325 [[place] 1 each PO Q4HR PRN #20 tablet 10/13/17 11/21/18 Unknown Rx 5/325] Aspirin [Aspirin BABY CHEW TAB] 81 mg PO QDAY 11/21/18 11/21/18 Unknown History Calcium Carbonate/Vitamin D3 1 each PO BID 11/21/18 11/21/18 Unknown History [Os-Larry 500+D3 Caplet] Ferric Citrate (Nf) [Auryxia] 210 mg PO DAILY 11/21/18 11/21/18 Unknown History Gabapentin [Neurontin] 600 mg PO BID 11/21/18 11/21/18 Unknown History glyBURIDE [Glyburide] 1.25 mg PO DAILY 11/21/18 11/21/18 Unknown History hydrALAZINE [Apresoline] 25 mg PO BID 11/21/18 11/21/18 Unknown History traMADol [Ultram] 50 mg PO Q6HR PRN 11/21/18 11/21/18 Unknown History Review of Systems Constitutional: fatigue, weakness, no weight loss, no weight gain, no fever, no chills Ears, nose, mouth and throat: no ear pain, no ear discharge, no tinnitis, no decreased hearing, no nose pain Cardiovascular: no chest pain, no orthopnea, no palpitations, no rapid/irregular heart beat, no edema Respiratory: no cough, no excessive sputum, no hemoptysis, no shortness of breath Gastrointestinal: no nausea, no vomiting, no diarrhea, no constipation, no change in bowel habits Genitourinary Female: no flank pain, no menorrhagia, no dysuria, no urinary frequency, no urgency Rectal: no pain, no incontinence, no bleeding Musculoskeletal: no neck stiffness, no neck pain, no shooting arm pain, no arm numbness/tingling, no low back pain, no shooting leg pain Integumentary: no rash, no pruritis, no redness, no sores, no wounds Neurological: confusion, no transient paralysis, no paralysis, no weakness, no parathesias, no numbness, no tingling Psychiatric: no anxiety, no memory loss, no change in sleep habits, no sleep disturbances, no insomnia, no hypersomnia, no change in appetite Endocrine: no cold intolerance, no heat intolerance, no polyphagia, no excessive thirst, no polydipsia, no polyuria Hematologic/Lymphatic: no easy bruising, no easy bleeding, no lymphadenopathy, no lymphedema Allergic/Immunologic: no urticaria, no allergic rhinitis, no wheezing, no persistent infections, no anaphylaxis Exam - Constitutional Vitals: Temp Pulse Resp BP Pulse Ox 97.5 F L 65 18 126/69 100 11/21/18 12:21 11/21/18 15:32 11/21/18 15:32 11/21/18 15:32 11/21/18 15:32 General appearance: Present: mild distress, obese - EENT Eyes: Present: PERRL ENT: hearing intact, clear oral mucosa - Neck Neck: Present: supple, normal ROM - Respiratory Respiratory effort: normal Respiratory: bilateral: CTA - Cardiovascular Heart Sounds: Present: S1 & S2. Absent: rub, click - Extremities Extremities: pulses symmetrical Extremity abnormal: edema Peripheral Pulses: within normal limits - Abdominal General gastrointestinal: Present: soft, non-tender, non-distended, normal bowel sounds Female genitourinary: Present: normal - Integumentary Integumentary: Present: clear, warm, dry - Musculoskeletal Musculoskeletal: gait normal, strength equal bilaterally - Psychiatric Psychiatric: appropriate mood/affect, intact judgment & insight, other (confused) - Neurologic Neurologic: CNII-XII intact, moves all extremities Results - Labs CBC & Chem 7: 11/21/18 Unknown 11/21/18 15: Labs: Abnormal lab results 11/21/18 11/21/18 Range/Units Unknown Unknown WBC 11.8 H (4.5-11.0) K/mm3 RDW 17.0 H (13.2-15.2) % Lymph % (Auto) 9.5 L (13.4-35.0) % [place] % (Auto) 10.8 H (0.0-7.3) % Lymph # 1.1 L (1.2-5.4) K/mm3 [place] # 1.3 H (0.0-0.8) K/mm3 Seg Neutrophils % 78.0 H (40.0-70.0) % Seg Neutrophils # 9.2 H (1.8-7.7) K/mm3 D-Dimer 2481.15 H (0-234) ng/mlDDU Assessment and Plan - Patient Problems (1) ESRD on hemodialysis Current Visit: No Status: Acute Plan to address problem: Nephrology consulted in ED, monitor uop q shift, avoid nephrotoxic agents, dialysis as per renal team. (2) Dialysis disequilibrium syndrome Current Visit: Yes Status: Acute Plan to address problem: CT head, supportive care, IVF resuscitation therapy as tolerated. (3) Diabetes Current Visit: Yes Status: Acute Plan to address problem: ADA diet, sliding scale insulin, accu chec, hypoglycemia protocol (4) Obesity hypoventilation syndrome Current Visit: Yes Status: Acute Plan to address problem: supplemental oxygen, pulse oximetry, chest x ray, NIPPV as clinically indicated. (5) COPD (chronic obstructive pulmonary disease) Current Visit: Yes Status: Acute Plan to address problem: Supplemental oxygen, supportive care, NIPPV as clinically indicated. (6) DVT prophylaxis Current Visit: Yes Status: Acute Plan to address problem: SCD to BLE while in bed.
[2018-11-21 15:54] LABS: Creatine Kinase MB 1.7 ng/mL (0.0-4.0)
[2018-11-21 15:55] LABS: Albumin 3.5 g/dL (3.9-5); Calcium 9.6 mg/dL (8.4-10.2)
[2018-11-21] MEDS ORDERED: ZOFRAN IV PRN (17:30)
[2018-11-21] MEDS ORDERED: PROVENTIL IH PRN (17:30)
[2018-11-21] MEDS ORDERED: SODIUM CHLORIDE FLUSH SYRINGE 10 ML IV PRN (17:30)
[2018-11-21] MEDS ORDERED: TYLENOL PO PRN (17:30)
[2018-11-21] MEDS ORDERED: NORCO 5/325 PO PRN (17:47)
[2018-11-21] MEDS ORDERED: ULTRAM PO PRN (17:50)
[2018-11-21 20:02] LABS: Chol/HDL Ratio 3.38 %
[2018-11-21] MEDS: OYSCO D 500 MG-200 UNIT PO SCH (21:23)
[2018-11-21] MEDS: SODIUM CHLORIDE FLUSH SYRINGE 10 ML IV SCH (21:24)
[2018-11-21] MEDS: NEURONTIN PO SCH (21:24)
[2018-11-21] MEDS: APRESOLINE PO SCH (21:34)
[2018-11-22 04:51] LABS: Basophils # (Auto) 0.1 K/mm3 (0.0-0.1); Hematocrit 38.7 % (30.3-42.9); Hemoglobin 12.6 gm/dl (10.1-14.3); Lymphocytes # (Auto) 2.4 K/mm3 (1.2-5.4); Lymphocytes % (Auto) 29.6 % (13.4-35.0); Mean Corpuscular HGB Conc 33 % (30-34); Mean Corpuscular Volume 90 fl (79-97); Monocytes # (Auto) 1.1 K/mm3 (0.0-0.8); Monocytes % (Auto) 13.5 % (0.0-7.3); Platelet Count 189 K/mm3 (140-440); Red Blood Count 4.28 M/mm3 (3.65-5.03); Red Cell Distribution Width 16.7 % (13.2-15.2)
[2018-11-22 04:52] LABS: Basophils % (Auto) 1.4 % (0.0-1.8); Eosinophils # (Auto) 0.2 K/mm3 (0.0-0.4)
[2018-11-22 05:04] LABS: Albumin 3.2 g/dL (3.9-5); Calcium 9.6 mg/dL (8.4-10.2)
--- NOTE | 2018-11-22 07:55 | Progress Note ---
Assessment and Plan Assessment and plan: 67 YO Female with ESRD on HD(M,W,F), OA, COPD, DM, CHF, HTN, Obesity Hypoventilation Syndrome, STEPHEN on CPAP presents to ED for evaluation. Pt was in her usual state of health today and went to her routine scheduled dialysis. Pt reports feeling confused and weak during dialysis, and immediately upon finish ing dialysis the patient experienced shortness of breath, worsening confusion, and felt as though she was going to pass out. The patient does not remember any more. Dialysis center staff reports that the patient lost consciousness. EMS notified, and upon arrival the patient was found to be in distress, and transported to [facility]. Pt seen and evaluated in ED and found to have ESRD, Dialysis Disequilibrium Syndrome. Pt admitted to medical floor. Nephrology consulted in ED. No further history obtainable. Pt is confused but is able to protect her airway. Pt does not remember syncopal episode. Pt denies fever, chills, CP, Palpitations, NVD, Trauma, BRBPR, Productive cough, hemoptysis, prolonged trave l/immobility, unilateral leg swelling, individual/family history of DVT/PE/Blood Clotting Disorders. Perfusion scan Low probability Review of prior Echo EF 60-65% Noted to have sclerotic Aortic Valve. ? Seizure-] Neurology consulted. ESRD on hemodialysis Current Visit: No Status: Acute Plan to address problem: Nephrology consulted in ED, monitor uop q shift, avoid nephrotoxic agents, dialysis as per renal team. Dialysis disequilibrium syndrome Current Visit: Yes Status: Acute Plan to address problem: CT head, supportive care, IVF resuscitation therapy as tolerated. Diabetes Current Visit: Yes Status: Acute Plan to address problem: ADA diet, sliding scale insulin, accu chec, hypoglycemia protocol Obesity hypoventilation syndrome Current Visit: Yes Status: Acute Plan to address problem: supplemental oxygen, pulse oximetry, chest x ray, NIPPV as clinically indicated. COPD (chronic obstructive pulmonary disease) Current Visit: Yes Status: Acute Plan to address problem: Supplemental oxygen, supportive care, NIPPV as clinically indicated. DVT prophylaxis Current Visit: Yes Status: Acute Plan to address problem: SCD to BLE while in bed. Hospitalist Physical - Constitutional Vitals: Temp Pulse Resp BP Pulse Ox 98.9 F 76 20 102/50 96 11/22/18 02:19 11/22/18 06:12 11/22/18 02:19 11/22/18 02:19 11/22/18 02:19 General appearance: Present: mild distress, obese Results - Labs CBC & Chem 7: 11/22/18 04:02 11/22/18 04:02 Labs: Laboratory Last Values WBC 8.2 K/mm3 (4.5-11.0) 11/22/18 04:02 RBC 4.28 M/mm3 (3.65-5.03) 11/22/18 04:02 Hgb 12.6 gm/dl (10.1-14.3) 11/22/18 04:02 Hct 38.7 % (30.3-42.9) 11/22/18 04:02 MCV 90 fl (79-97) 11/22/18 04:02 MCH 30 pg (28-32) 11/22/18 04:02 MCHC 33 % (30-34) 11/22/18 04:02 RDW 16.7 % (13.2-15.2) H 11/22/18 04:02 Plt Count 189 K/mm3 (140-440) 11/22/18 04:02 Lymph % (Auto) 29.6 % (13.4-35.0) 11/22/18 04:02 Mower % (Auto) 13.5 % (0.0-7.3) H 11/22/18 04:02 Eos % (Auto) 2.0 % (0.0-4.3) 11/22/18 04:02 Baso % (Auto) 1.4 % (0.0-1.8) 11/22/18 04:02 Lymph # 2.4 K/mm3 (1.2-5.4) 11/22/18 04:02 Mower # 1.1 K/mm3 (0.0-0.8) H 11/22/18 04:02 Eos # 0.2 K/mm3 (0.0-0.4) 11/22/18 04:02 Baso # 0.1 K/mm3 (0.0-0.1) 11/22/18 04:02 Add Manual Diff Complete 11/22/18 04:02 Seg Neutrophils % 53.5 % (40.0-70.0) 11/22/18 04:02 Seg Neutrophils # 4.4 K/mm3 (1.8-7.7) 11/22/18 04:02 PT 12.3 Sec. (12.2-14.9) 11/21/18 Unknown INR 0.87 (0.87-1.13) 11/21/18 Unknown APTT 24.3 Sec. (24.2-36.6) 11/21/18 Unknown 2481.15 ng/mlDDU (0-234) H 11/21/18 Unknown Sodium 134 mmol/L (137-145) L 11/22/18 04:02 Potassium 4.7 mmol/L (3.6-5.0) 11/22/18 04:02 Chloride 95.4 mmol/L (98-107) L 11/22/18 04:02 Carbon Dioxide 25 mmol/L (22-30) 11/22/18 04:02 18 mmol/L 11/22/18 04:02 BUN 40 mg/dL (7-17) H 11/22/18 04:02 6.2 mg/dL (0.7-1.2) H 11/22/18 04:02 Estimated GFR 8 ml/min 11/22/18 04:02 6 % 11/22/18 04:02 Glucose 115 mg/dL (65-100) H 11/22/18 04:02 POC Glucose 224 (70-105) H 11/21/18 22:11 Calcium 9.6 mg/dL (8.4-10.2) 11/22/18 04:02 0.40 mg/dL (0.1-1.2) 11/22/18 04:02 AST 27 units/L (5-40) 11/22/18 04:02 ALT 15 units/L (7-56) 11/22/18 04:02 115 units/L (35-129) 11/22/18 04:02 77 units/L (30-135) 11/21/18 15:19 CK-MB (CK-2) 1.7 ng/mL (0.0-4.0) 11/21/18 15: CK-MB (CK-2) Rel Index 2.2 (0-4) 11/21/18 15:19 0.106 ng/mL (0.00-0.029) H* 11/21/18 15:19 8.6 g/dL (6.3-8.2) H 11/22/18 04:02 3.2 g/dL (3.9-5) L 11/22/18 04:02 0.6 % 11/22/18 04:02 Triglycerides 180 mg/dL (2-149) H 11/21/18 15:19 Cholesterol 169 mg/dL (50-199) 11/21/18 15: 92 mg/dL (50-130) 11/21/18 15: 50 mg/dL (40-59) 11/21/18 15: 3.38 % 11/21/18 15:19 Active Medications - Current Medications Current Medications: Generic Name Dose Route Start Last Admin Trade Name Freq PRN Reason Stop Dose Admin Acetaminophen 650 mg 11/21/18 17:30 Tylenol PO Q4H PRN Pain MILD(1-3)/Fever >100.5/FOWLER Acetaminophen/Hydrocodone Bitart 1 each 11/21/18 17:47 [place] 5/325 PO Q4H PRN Pain, Moderate (4-6) Albuterol 2.5 mg 11/21/18 17:30 Proventil IH Q4HRT PRN Shortness Of Breath Amlodipine Besylate 10 mg 11/22/18 10:00 Norvasc PO DAILY [place] Aspirin 81 mg 11/22/18 10:00 Baby Aspirin PO QDAY [facility] Calcium/Vitamin D 1 each 11/21/18 22:00 11/21/18 21:23 Oysco D 500 Mg-200 Unit PO 1 each BID [place] Administration Gabapentin 600 mg 11/21/18 22:00 11/21/18 21:24 Neurontin PO 600 mg BID [place] Administration Hydralazine HCl 25 mg 11/21/18 22:00 11/21/18 21:34 Apresoline PO Not Given BID [facility] Miscellaneous Medication 210 mg 11/22/18 10:00 Ferric Citrate (Nf) PO DAILY [facility] Multivit/Ca Carb/B Cmplx/FA/Prenat 1 cap 11/22/18 10:00 Renal Caps PO QDAY [facility] Ondansetron HCl 4 mg 11/21/18 17:30 Zofran IV Q8H PRN Nausea And Vomiting Sodium Chloride 10 ml 11/21/18 22:00 11/21/18 21:24 Sodium Chloride Flush Syringe 10 Ml IV 10 ml BID [place] Administration Sodium Chloride 10 ml 11/21/18 17:30 Sodium Chloride Flush Syringe 10 Ml IV PRN PRN LINE FLUSH Tramadol HCl 50 mg 11/21/18 17:50 Ultram PO Q6H PRN Pain, Moderate (4-6)
[2018-11-22 08:52] VITALS: BP 110/59
[2018-11-22] MEDS: NEURONTIN PO SCH (09:27)
[2018-11-22] MEDS: SODIUM CHLORIDE FLUSH SYRINGE 10 ML IV SCH (09:28)
[2018-11-22] MEDS: APRESOLINE PO SCH (09:28)
[2018-11-22] MEDS: OYSCO D 500 MG-200 UNIT PO SCH (09:28)
[2018-11-22] MEDS ORDERED: FOLIC ACID PO SCH (10:00)
[2018-11-22] MEDS ORDERED: NORVASC PO SCH (10:00)
[2018-11-22] MEDS ORDERED: Renal Caps PO SCH (10:00)
[2018-11-22] MEDS ORDERED: VIT B COMPLX C PO SCH (10:00)
[2018-11-22] MEDS ORDERED: FERRIC CITRATE 210 MG PO SCH (10:00)
[2018-11-22] MEDS ORDERED: BABY ASPIRIN PO SCH (10:00)
[2018-11-22] MEDS ORDERED: ZINC PO SCH (10:00)
--- NOTE | 2018-11-22 10:21 | Discharge Summary ---
Providers - Providers Date of Admission: 11/21/18 17:30 Attending physician: FABIO VANG MD Primary care physician: KYLIE ADAN Hospitalization Reason for admission: syncope Condition: Stable Hospital course: 67 YO Female with ESRD on HD(M,W,F), OA, COPD, DM, CHF, HTN, Obesity Hypoventilation Syndrome, STEPHEN on CPAP presents to ED for evaluation. Pt was in her usual state of health today and went to her routine scheduled dialysis. Pt reports feeling confused and weak during dialysis, and immediately upon finishing dialysis the patient experienced shortness of breath, worsening confusion, and felt as though she was going to pass out. The patient does not remember any more. Dialysis center staff reports that the patient lost consciousness. EMS notified, and upon arrival the patient was found to be in distress, and transported to [facility]. Pt seen and evaluated in ED and found to have ESRD, Dialysis Disequilibrium Syndrome. Pt admitted to medical floor. Nephrology consulted in ED. No further history obtainable. Pt is confused but is able to protect her airway. Pt does not remember syncopal episode. Pt denies fever, chills, CP, Palpitations, NVD, Trauma, BRBPR, Productive cough, hemoptysis, prolonged travel/immobility, unilateral leg swelling, individual/family history of DVT/PE/Blood Clotting Disorders. Clinically improved./ No further back pain Spoke to general ii farmworker off, they will follow out patient No evidence of seizure activity. Per patient she was out of the symptom almost immediately, momentary confusion but no post ictal state Will follow with Cardiology in a week. Possible repeat Echo. Advised for patient to stay another 24 hrs to further evaluate but she request discharge. she understands and verbalized understanding of associated risk Patient improved faster than expected. Perfusion scan Low probability Review of prior Echo EF 60-65% Noted to have sclerotic Aortic Valve. Discharge diagnosis Acute metabolic Enceopahloapthy secondary to Dialysis disequilibrium syndrome Hyponatermia ESRD on hemodialysis Dialysis disequilibrium syndrome Diabetes Obesity hypoventilation syndrome COPD (chronic obstructive pulmonary disease) CHRONIC LOW BACK PAIN. Sclerotic Aortic Valve Disposition: [id number] HOME [facility] Time spent for discharge: 35 mins Core Measure Documentation - Palliative Care Palliative Care/ Comfort Measures: Not Applicable - Core Measures Any of the following diagnoses?: none Exam - Physical Exam Narrative exam: General appearance: Present:no acute distress, obese - EENT Eyes: Present: PERRL ENT: hearing intact, clear oral mucosa - Neck Neck: Present: supple, normal ROM - Respiratory Respiratory effort: normal Respiratory: bilateral: CTA - Cardiovascular Heart Sounds: Present: S1 & S2. Absent: rub, click - Extremities Extremities: pulses symmetrical Extremity abnormal: edema Peripheral Pulses: within normal limits - Abdominal General gastrointestinal: Present: soft, non-tender, non-distended, normal bowel sounds Female genitourinary: Present: normal - Integumentary Integumentary: Present: clear, warm, dry - Musculoskeletal Musculoskeletal: gait normal, strength equal bilaterally - Psychiatric Psychiatric: appropriate mood/affect, intact judgment & insight, - Neurologic Neurologic: CNII-XII intact, moves all extremities, AAO X3 - Constitutional Vitals: Temp Pulse Resp BP Pulse Ox 98.6 F 76 16 110/59 95 11/22/18 07:21 11/22/18 09:27 11/22/18 07:21 11/22/18 09:27 11/22/18 07:00 Plan Activity: advance as tolerated, fall precautions Diet: diabetic, renal Special Instructions: record daily weights, record daily BP diary, record blood sugar diary Additional Instructions: CONTINUE WITH SCHEDULED OUTPATIENT DIALYSIS Follow up with: PRIMARY CARE, [Referring] - 3-5 Days NANI ANDREWS MD [Staff Physician] - 7 Days
== END 2018-11-22 14:00 | disposition home health service (06) | DRG 640 ==
LOC: ED 11:43 → 2B-ACE 17:30
PROVIDERS: ADMIT Internal Medicine; ATTEND Internal Medicine
PROC: 5A09357 Assistance with Respiratory Ventilation, Less than 24 Consecutive Hours, Continuous Positive Airway Pressure (ICD-10-PCS; principal; 2018-11-21)
DX: E87.8 Other disorders of electrolyte and fluid balance, not elsewhere classified (principal); G93.41 Metabolic encephalopathy; N18.6 End stage renal disease; E66.2 Morbid (severe) obesity with alveolar hypoventilation; I13.2 Hypertensive heart and chronic kidney disease with heart failure and with stage 5 chronic kidney disease, or end stage renal disease; E87.1 Hypo-osmolality and hyponatremia; I50.9 Heart failure, unspecified; E11.22 Type 2 diabetes mellitus with diabetic chronic kidney disease; G89.29 Other chronic pain; M54.5 Low back pain; M19.90 Unspecified osteoarthritis, unspecified site; J44.9 Chronic obstructive pulmonary disease, unspecified; Z96.659 Presence of unspecified artificial knee joint; Z82.49 Family history of ischemic heart disease and other diseases of the circulatory system; Z99.2 Dependence on renal dialysis; Z88.0 Allergy status to penicillin; Z79.899 Other long term (current) drug therapy; Z79.82 Long term (current) use of aspirin
CPT/HCPCS: 36415; 70450; 71045; 72131; 78582; 80053; 80061; 82550; 82553; 82962; 84484; 85025; 85379; 85610; 85730; 93005; 93010; 94660; 96374; 99285; G0378; A9540; A9558